=== PATIENT | male | born 1975 | race African-American/Black ===

== ENCOUNTER 2016-06-24 13:11 | Inpatient (IN) | payer MEDICAID ==
[~2016-06-24] VITALS: Ht 185.4 cm; Wt 103.4 kg
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
--- NOTE | 2016-06-24 13:30 | NUR ---
BLOOD SAMPLE COLLECTED SENT TO LAB
--- NOTE | 2016-06-24 13:37 | NUR ---
XRAY AT BEDSIDE
[2016-06-24 13:54] LABS: BASOPHILS % (AUTO) 0.5 % (0.0-2.0); EOSINOPHILS # (AUTO) 0.1 /CMM (0.0-0.7); EOSINOPHILS % (AUTO) 2.1 % (0.0-6.0); HEMATOCRIT 37 % (39-51); HEMOGLOBIN 12.4 g/dL (13.5-17.5); LYMPHOCYTES % (AUTO) 16.1 % (20.0-44.0); MEAN CORPUSCULAR HEMOGLOBIN 28 PG (26.0-33.0); MEAN CORPUSCULAR HGB CONC 34 g/dl (31.0-36.0); MEAN CORPUSCULAR VOLUME 83 fL (80-96); MONOCYTES # (AUTO) 0.5 /CMM (0.1-1.30); MONOCYTES % (AUTO) 8.4 % (2.0-12.0); NEUTROPHILS # (AUTO) 4.5 /CMM (1.8-8.9); NEUTROPHILS % (AUTO) 72.9 % (43.0-81.0); PLATELET COUNT (AUTO) 305 /CMM (150-450); RDW COEFFICIENT OF VARIATION 16.5 (11.5-15.0); WHITE BLOOD COUNT (AUTO) 6.1 K/uL (4.3-11.0)
[2016-06-24 14:05] LABS: CALCIUM, SERUM 8.8 mg/dL (8.5-10.1); CARBON DIOXIDE 30 mmol/L (21-32); CHLORIDE 103 mmol/L (98-107); CREATININE 0.9 mg/dL (0.6-1.3); GFR 114 mL/min (>60); GLUCOSE 107 mg/dL (74-106); POTASSIUM 3.6 mmol/L (3.5-5.1); SODIUM SERUM 137 mmol/L (136-145); UREA NITROGEN, BLOOD 8 mg/dL (7-18)
[2016-06-24 14:10] LABS: INR 1.06 (0.87-1.13)
[2016-06-24 14:12] LABS: TROPONIN I < 0.017 ng/mL (0.00-0.056)
[2016-06-24 14:17] LABS: ALANINE AMINOTRANSFERASE 16 U/L (12-78); ALBUMIN 3.3 g/dL (3.4-5.0); ALKALINE PHOSPHATASE 142 U/L (46-116); ASPARTATE AMINOTRANSFERASE 16 U/L (15-37); B-TYPE NATRIURETIC PEPTIDE 602 PG/ML (0-125); BILIRUBIN,DIRECT 0.1 mg/dL (0.0-0.2); BILIRUBIN,TOTAL 0.5 mg/dL (0.2-1.0); TOTAL PROTEIN, SERUM 7.3 g/dL (6.4-8.2)
--- NOTE | 2016-06-24 16:55 | NUR ---
GAVE REPORT TO CLIFF ROMEOPIG MACHINE OPERATOR. CHF DX. DANNY GALLEGO ACCEPTING HOSPITALIST. TRANSFER VIA ACLS PROTOCOL
[2016-06-24] MEDS ORDERED: MAGNESIUM HYDROXIDE 30 ML UDC PO PRN (18:00)
[2016-06-24] MEDS ORDERED: ONDANSETRON HCL/PF 4 MG/2 ML VIAL IVP PRN (18:00)
[2016-06-24] MEDS ORDERED: ACETAMINOPHEN 325 MG TABLET PO PRN (18:00)
[2016-06-24] MEDS ORDERED: MAG HYDROX/AL HYDROX/SIMETH 30 ML UDC PO PRN (18:00)
[2016-06-24] MEDS ORDERED: HYDROCODONE/APAP 10/325MG 1 EA TABLET PO PRN (18:00)
[2016-06-24] MEDS ORDERED: Z GUARD REMEDY 2 OZ OINT TP PRN (18:00)
[2016-06-24] MEDS ORDERED: ZOLPIDEM TARTRATE 5 MG TABLET PO PRN (18:00)
--- NOTE | 2016-06-24 18:00 | NUR ---
MECHANICAL ENGINEERING TEACHERBOBCAT DRIVER/LABOR NOTE PATIENT IS ALERT AND ORIENTED x4. NO PAIN AT THIS TIME. NO SOB OR DISTRESS NOTED. CALL LIGHT WITHIN REACH. SAFETY MEASURES IMPLEMENTED. PATIENT HAS BILATERAL LOWER LEG EDEMA, NON-PITTING. IV INTACT AND PATENT NO REDNESS OR SWELLING NOTED. RECEIVED REPORT FROM OUSMANE VILLAFANA. ALL PATIENT BELONGINGS ACCOUNTED FOR. PATIENT IS ON REGULAR DIET, FULL CODE. TELE MONITOR-SINUS RHYTHM 80. WILL CONTINUE TO MONITOR
[2016-06-24] MEDS ORDERED: FUROSEMIDE 40 MG/4 ML VIAL IV ONE (18:30)
[2016-06-24] MEDS ORDERED: hydrALAZINE HCL 10 MG TABLET PO PRN (18:30)
--- NOTE | 2016-06-24 19:30 | NUR ---
COKE OVEN PATCHER OPENING NOTES: PATIENT IN BED, AOX4, ON ROOM ON ROOM AIR, BREATHING EVEN AND UNLABORED. BREATH SOUNDS CLEAR TO AUSCULTATION. PATIENT HAS A PIV ACCESS OVER LAC G 18 INTACT AND PATENT TO FLUSH. NOTED BLE SWELLING, WITH +1 NON PITTING EEDEMA. ON TELE MONITORING WITH SR AT RATE OF 70S. PROVIDED FOR COMFORT AND SAFETY. FOR STRICT I&OS. WILL CONT TO MONITOR.
[2016-06-24 20:00] VITALS: BP 166/93
[2016-06-24 22:00] VITALS: BP 163/86
--- NOTE | 2016-06-24 22:29 | NUR ---
RN NOTES: PATIENT'S BP RECHECKED AT 163/86, HR OF 73. GAVE APRESOLINE 10 MG PO PRN. WILL CONT TO MONITOR.
[2016-06-25] VITALS: BP 130/93
[2016-06-25 04:00] VITALS: BP 155/103
[2016-06-25] MEDS: HYDROCODONE/APAP 5/325MG 1 EACH TABLET PO PRN ×3 (06:09→20:19)
--- NOTE | 2016-06-25 06:09 | NUR ---
RN NOTES: PT C/O OF 7/10 PAIN OVER L KNEE AND BLE. ADMINISTERED NORCO 5-325 MG PO. WILL CONT TO MONITOR.
[2016-06-25 06:18] LABS: BASOPHILS % (AUTO) 0.2 % (0.0-2.0); EOSINOPHILS # (AUTO) 0.1 /CMM (0.0-0.7); EOSINOPHILS % (AUTO) 1.5 % (0.0-6.0); HEMATOCRIT 41 % (39-51); HEMOGLOBIN 13.2 g/dL (13.5-17.5); LYMPHOCYTES # (AUTO) 0.9 /CMM (0.8-4.8); LYMPHOCYTES % (AUTO) 10.6 % (20.0-44.0); MEAN CORPUSCULAR HEMOGLOBIN 27 PG (26.0-33.0); MEAN CORPUSCULAR HGB CONC 33 g/dl (31.0-36.0); MEAN CORPUSCULAR VOLUME 84 fL (80-96); MONOCYTES # (AUTO) 0.8 /CMM (0.1-1.30); MONOCYTES % (AUTO) 9.2 % (2.0-12.0); NEUTROPHILS % (AUTO) 78.5 % (43.0-81.0); PLATELET COUNT (AUTO) 329 /CMM (150-450); RDW COEFFICIENT OF VARIATION 17.7 (11.5-15.0); RED BLOOD CELL COUNT(AUTO) 4.87 MIL/uL (4.5-6.0); WHITE BLOOD COUNT (AUTO) 8.9 K/uL (4.3-11.0)
[2016-06-25 06:21] LABS: APPEARANCE,URINE CLEAR (CLEAR); BILIRUBIN,URINE NEGATIVE (NEGATIVE); BLOOD, URINE NEGATIVE Ery/uL (NEGATIVE); COLOR,URINE YELLOW (YELLOW); KETONES,URINE NEGATIVE (NEGATIVE); LEUKOCYTE ESTERASE ,URINE NEGATIVE (NEGATIVE); NITRITE, URINE NEGATIVE (NEGATIVE); PH,URINE 7.5 (5.0-8.0); PROTEIN,URINE NEGATIVE (NEGATIVE); UGLUCOSE NEGATIVE (NEGATIVE); UROBILINOGEN,URINE 0.2 EU/dL (0.2)
[2016-06-25 06:35] LABS: CALCIUM, SERUM 8.7 mg/dL (8.5-10.1); CREATININE 0.8 mg/dL (0.6-1.3); MAGNESIUM 1.8 mg/dL (1.8-2.4); PHOSPHORUS 4.3 mg/dL (2.5-4.9); POTASSIUM 3.7 mmol/L (3.5-5.1)
[2016-06-25 06:38] LABS: PHENCYCLIDINE SCREEN,URINE NEGATIVE (NEGATIVE)
[2016-06-25 06:42] LABS: THYROID STIMULATING HORMONE 1.874 uIU/mL (0.358-3.74)
[2016-06-25 06:44] LABS: CANNABINOID, URINE POSITIVE (NEGATIVE)
--- NOTE | 2016-06-25 06:49 | NUR ---
PAINT STRIPING MACHINE OPERATOR CLOSING NOTES: PATIENT IN BED, AOX4, ON ROOM AIR, BREATHING EVEN AND UNLABORED. APPEARS CALM AND IN NO DISTRESS AT THIS TIME. STATES THAT PAIN OVER BLE AND LEFT KNEE HAS DECREASED TO LESS THAN 5. PIV OVER LAC G 18 INTACT AND PATENT TO FLUSH. DUE MEDS GIVEN. PROVIDED FOR COMFORT AND SAFETY. BED IN LOWEST AND LOCKED POSITION, SIDERAILS UP X 3, CALL LIGHT WITHIN REACH. WILL ENDORSE TO AM RN FOR EFFIE.
--- NOTE | 2016-06-25 07:30 | NUR ---
BOX ATTACHER NOTES RECEIVED PATIENT AWAKE RESTING COMFORTABLY ON BED, BREATHING EVEN AND NON LABORED. DENIES ANY PAIN AT THIS TIME. CALL LIGHT WITHIN REACH. WILL CONTINUE TO MONITOR.
[2016-06-25 08:00] VITALS: BP 155/94
[2016-06-25] MEDS: HYDROCHLOROTHIAZIDE 25 MG TABLET PO SCH (08:55)
--- NOTE | 2016-06-25 09:00 | NUR ---
MITER SAW OPERATOR NOTES DUE MEDS GIVEN, S/B JOSE RAUL EDWARDS WITH NEW ORDERS MADE AND CARRIED OUT.
--- NOTE | 2016-06-25 10:00 | NUR ---
HEALTH INFORMATION TECHNICIAN NOTES S/B DR. HENDERSON WITH ORDERS TO DC TELE MONITORING. ORDERS CARRIED OUT.
[2016-06-25] MEDS: hydrALAZINE HCL 50 MG TABLET PO SCH ×3 (10:32→17:04)
[2016-06-25 16:00] VITALS: BP 142/81
--- NOTE | 2016-06-25 17:00 | NUR ---
MS RN NOTES ALL DUE MEDS GIVEN, NO COMPLAINTS MADE AT THIS TIME.
--- NOTE | 2016-06-25 18:49 | NUR ---
MS RN NOTES ALL NEEDS ATTENDED AND ANTICIPATED, ENDORSED TO INCOMING SHIFT FOR CONTINUITY OF CARE.
[2016-06-25 19:00] VITALS: BP 143/83
[2016-06-25 20:00] VITALS: BP 143/83
--- NOTE | 2016-06-25 20:19 | NUR ---
MS/RN NOTE: C/O PAIN, ACHY RIGHT KNEE, NORCO TAB 5/325 MG TAB 1 PO GIVEN
--- NOTE | 2016-06-25 21:30 | NUR ---
MS/RN NOTE: LAB CALLED FOR POSITIVE MRSA SCREEN RESULT. PATIENT IS ALREADY ON CONTACT ISOLATION FOR MRSA NARES
[2016-06-25] MEDS: MUPIROCIN OINT 2% 22 GM TUBE SCH (22:00)
--- NOTE | 2016-06-26 07:30 | NUR ---
RN MS NOTES PT IN BED, ASLEEP, EASILY AROUSABLE, NO COMPLAINT OF PAIN AT THIS TIME, BREATHING PATTERN NORMAL, CONTACT ISOLATION PRECAUTIONS OBSERVED, CALL LIGHT WITHIN REACH.
[2016-06-26 08:00] VITALS: BP 155/90
[2016-06-26] MEDS: HYDROCHLOROTHIAZIDE 25 MG TABLET PO SCH (08:47)
[2016-06-26] MEDS: ISOSORBIDE DINITRATE (20MG) 20 MG TABLET PO SCH ×2 (08:49→16:58)
[2016-06-26] MEDS: hydrALAZINE HCL 50 MG TABLET PO SCH ×2 (08:49→16:57)
[2016-06-26] MEDS: HYDROCODONE/APAP 5/325MG 1 EACH TABLET PO PRN ×2 (09:56→22:29)
[2016-06-26] MEDS: MUPIROCIN OINT 2% 22 GM TUBE SCH ×2 (09:56→20:38)
--- NOTE | 2016-06-26 13:00 | NUR ---
RN MS NOTES PT IN BED, ASLEEP, EASILY AROUSABLE, ALERT AND ORIENTED, DENIES PAIN AT THIS TIME, RESPIRATIONS NORMAL, SEEN BY DANNY BLUNT, PLAN OF CARE DISCUSSED WITH PT, VERBALIZED UNDERSTANDING, CALL LIGHT WITHIN REACH, NEEDS ATTENDED.
[2016-06-26 16:00] VITALS: BP 128/86
--- NOTE | 2016-06-26 18:07 | NUR ---
RN MS NOTES PT IN BED, ASLEEP, EASILY AROUSABLE, ALERT AND ORIENTED, COMPLIANT WITH MEDICATION AND INTERVENTIONS, CALL LIGHT WITHIN REACH, PM MEDS GIVEN ORDERED, TOLERATING CURRENT DIET WELL, ALL NEEDS ATTENDED.
[2016-06-26 19:00] VITALS: BP 142/95
--- NOTE | 2016-06-26 19:15 | NUR ---
MS RN OPENING NOTES: PT IN BED AWAKE AND EASILY AROUSABLE. PT IS A/0X4 AND MADE KNOWN THAT HE WANTS TO SHOWER. KEPT CLEAN, DRY, AND COMFORTABLE. NO SIGNS OR SYMPTOMS OF DISTRESS NOTED. CALL LIGHT WITHIN PT'S REACH. BED KEPT IN LOCKED, LOWEST POSITION, AND SIDE RAILS X 2 UP. PT IS ON ROOM AIR AND IS TOLERATING WELL. PT IS AMBULATORY WITH ASSIST. PT HAS IV ON LAC #18 G AND IS PATENT AND INTACT. WILL CONTINUE TO MONITOR PT.
[2016-06-26 20:00] VITALS: BP 142/95
--- NOTE | 2016-06-26 22:29 | NUR ---
MS RN NOTES: PT COMPLAINED OF 7/10 BILATERAL LOWER LEGS. PT RECEIVED NORCO 5-325MG PO. WILL CONTINUE TO MONITOR PT.
[2016-06-27 06:29] LABS: BASOPHILS % (AUTO) 0.3 % (0.0-2.0); EOSINOPHILS % (AUTO) 0.5 % (0.0-6.0); HEMATOCRIT 46 % (39-51); HEMOGLOBIN 14.9 g/dL (13.5-17.5); LYMPHOCYTES # (AUTO) 1.1 /CMM (0.8-4.8); LYMPHOCYTES % (AUTO) 12.4 % (20.0-44.0); MEAN CORPUSCULAR HEMOGLOBIN 27 PG (26.0-33.0); MEAN CORPUSCULAR HGB CONC 32 g/dl (31.0-36.0); MEAN CORPUSCULAR VOLUME 83 fL (80-96); MONOCYTES # (AUTO) 1.3 /CMM (0.1-1.30); NEUTROPHILS # (AUTO) 6.5 /CMM (1.8-8.9); NEUTROPHILS % (AUTO) 72.8 % (43.0-81.0); PLATELET COUNT (AUTO) 356 /CMM (150-450); RDW COEFFICIENT OF VARIATION 18.1 (11.5-15.0); RED BLOOD CELL COUNT(AUTO) 5.58 MIL/uL (4.5-6.0)
[2016-06-27 06:45] LABS: CALCIUM, SERUM 9.3 mg/dL (8.5-10.1); CREATININE 0.9 mg/dL (0.6-1.3); POTASSIUM 4.1 mmol/L (3.5-5.1)
--- NOTE | 2016-06-27 07:02 | NUR ---
MS RN CLOSING NOTES: ALL NEEDS WERE ATTENDED. PT IN BED, ASLEEP. PT IS A/OX4. KEPT CLEAN, DRY, AND COMFORTABLE. NO SIGNS OR SYMPTOMS OF DISTRESS NOTED. CALL LIGHT WITHIN PT'S REACH. BED KEPT IN LOCKED, LOWEST POSITION, AND SIDE RAILS X 2 UP. URINAL AT BEDSIDE. OUTPUT WAS 550ML. PT IS ON ROOM AIR AND IS TOLERATING WELL. PT IS AMBULATORY WITH ASSIST. PT HAS IV ON LAC #18 G AND IS PATENT AND INTACT. WILL ENDORSE TO AM NURSE FOR CONTINUITY OF CARE.
--- NOTE | 2016-06-27 07:30 | NUR ---
AM RN NOTE Received patient sleeping comfortably in his bed, arouses upon touch. No SOB noted resp even and non-labored. IV site intact and patent. Bed in low locked position. Will continue to monitor.
[2016-06-27] MEDS: HYDROCHLOROTHIAZIDE 25 MG TABLET PO SCH (08:30)
[2016-06-27] MEDS: ISOSORBIDE DINITRATE (20MG) 20 MG TABLET PO SCH (08:30)
[2016-06-27 08:31] VITALS: BP 133/91
[2016-06-27] MEDS: MUPIROCIN OINT 2% 22 GM TUBE SCH (08:31)
[2016-06-27] MEDS: hydrALAZINE HCL 50 MG TABLET PO SCH (08:31)
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
--- NOTE | 2016-06-27 10:22 | NUR ---
AM RN NOTE New order given by Dr. Pj Quintero for Psych consult per CN (Nette) noted and carried out. Consult faxed to [facility] for Dr. Grider and spoke with Yany.
--- NOTE | 2016-06-27 11:01 | NUR ---
AM RN NOTE Pt pulled out IV attempted to re-insert, pt refused.
[2016-06-27] MEDS ORDERED: TRIAMCINOLONE ACETONIDE SUSP 40 MG/ML VIAL IM ONE (11:30)
[2016-06-27] MEDS ORDERED: LIDOCAINE 1% INJ 50 ML MDV IJ ONE (11:30)
[2016-06-27] MEDS ORDERED: BUPIVACAINE 0.5 % PF 150 MG/30 ML VIAL IJ ONE (11:30)
[2016-06-27] MEDS ORDERED: HYDR-4075 PO (12:09)
[2016-06-27] MEDS ORDERED: ISOS40TA12 PO (12:09)
[2016-06-27] MEDS ORDERED: HYDR12.5 PO (12:09)
--- NOTE | 2016-06-27 13:00 | NUR ---
AM RN NOTE Joint arthrocentesis procedure done by Dr. Ingrid Oliva @bedside.
--- NOTE | 2016-06-27 14:37 | NUR ---
INGRID met with pt. bedside for social service consult and discuss discharge plan. Pt. is A&O x 4. Pt. appeared disheveled and has several tattoos all over his body and arms. Pt. states he has been homeless for the past 5 years, prior to that pt. was living in an apartment by himself. Pt. states he was receiving SSI but does not receive it anymore due to missing his SSI appointments. Pt. has a history of drug use but denies using any drugs at this time. Pt. does smoke Marijuana every other day. Pt. denies alcohol consumption at this time. Pt. denies suicidal/homicidal ideations and visual/auditory hallucinations at this time. Pt. is willing to go to chcf. INGRID contacted [facility] and spoke to Raj who informed INGRID they do have a top bunk bed available or an emergency bed as well. INGRID informed pt. that [facility] has a top bunk available. Pt. accepted to go to chcf. Pt. stated he can take the bus. INGRID informed pt. she will give two bus tokens to his RN Joseluis prior to discharge. Pt. to go to [facility]cf located at [address] [place], [place] [address]A [facility] via bus. Homeless Patient Waiver Form was signed by pt. and placed in chart by INGRID. Addendum: 06/27/16 at 1518 by GRAHAM QUINTERO INGRID gave pt. the following resources: Homeless Resource directory with contacts to food queen, hot showers, clothing, housing and emergency shelters, churches. etc.; 211 brochure and list of outpatient mental health clinics.
--- NOTE | 2016-06-27 14:40 | NUR ---
AM RN NOTE Discharge order given by Dr. Ingrid Oliva. emergency worker (Nya) spoke with patient. Per INGRID (Nya) [facility] Patient A/O X4 verbally responsive. Discharge instructions on medications and teachings given to patient. Belongings endorsed and signed. MD aware about all lab results. Patient seen and assessed by Physical therapist. Patient denies any pain at this time.
--- NOTE | 2016-06-27 14:45 | NUR ---
AM RN NOTE Patient awake, ID band removed. Heplock was pulled out by pt earlier. Skin intact. Patient discharged/ left unit at this time as accompanied by POWER SHEAR OPERATOR to downstairs. 2 bus tokens given to patient per human service worker (Nya).
== END 2016-06-27 14:59 | disposition home or self-care (01) | DRG 199 ==
LOC: ER 13:13 → TELE 16:27 → MED 06-25 09:56
PROVIDERS: ADMIT Contractor; ATTEND Contractor
DX: I16.0 Hypertensive urgency (principal); I50.31 Acute diastolic (congestive) heart failure; E88.09 Other disorders of plasma-protein metabolism, not elsewhere classified; E87.70 Fluid overload, unspecified; M17.12 Unilateral primary osteoarthritis, left knee; F12.90 Cannabis use, unspecified, uncomplicated; F17.210 Nicotine dependence, cigarettes, uncomplicated; Z59.0 Homelessness; D64.9 Anemia, unspecified; I34.0 Nonrheumatic mitral (valve) insufficiency; I35.1 Nonrheumatic aortic (valve) insufficiency; I11.0 Hypertensive heart disease with heart failure
CPT/HCPCS: 36415; 71010-TC; 73564-TC; 80048-TC; 80061-TC; 80076-TC; 80305; 81000-TC; 83735-TC; 83880; 84100-TC; 84443-TC; 84484-TC; 84550-TC; 85025-TC; 85730-TC; 87081-TC; 93307-TC; 93970-TC; 97001-TC; A4606; A6402; J1940; J2405; J3301; J3490; Z7610

== ENCOUNTER 2016-07-07 13:36 | Emergency (ER) | payer MEDICAID ==
[~2016-07-07] VITALS: Ht 188 cm; Wt 90.7 kg
[~2016-07-07 13:36] MED LIST: HYDR-4075 PO; HYDR12.5 PO; ISOS40TA12 PO
--- NOTE | 2016-07-07 14:09 | NUR ---
CALLED GRAHAM, MANAGER FINANCIAL SERVICES, TO COME SEE PT
[2016-07-07 14:28] LABS: CALCIUM, SERUM 8.5 mg/dL (8.5-10.1); CARBON DIOXIDE 30 mmol/L (21-32); CHLORIDE 105 mmol/L (98-107); GFR 101 mL/min (>60); GLUCOSE 103 mg/dL (74-106); POTASSIUM 3.3 mmol/L (3.5-5.1); SODIUM SERUM 138 mmol/L (136-145); UREA NITROGEN, BLOOD 9 mg/dL (7-18)
[2016-07-07 14:36] LABS: TROPONIN I < 0.017 ng/mL (0.00-0.056)
[2016-07-07 14:38] LABS: BASOPHILS # (AUTO) 0.1 /CMM (0.0-0.2); BASOPHILS % (AUTO) 0.5 % (0.0-2.0); EOSINOPHILS # (AUTO) 0.2 /CMM (0.0-0.7); EOSINOPHILS % (AUTO) 1.7 % (0.0-6.0); HEMATOCRIT 35 % (39-51); HEMOGLOBIN 12.1 g/dL (13.5-17.5); LYMPHOCYTES # (AUTO) 1.5 /CMM (0.8-4.8); LYMPHOCYTES % (AUTO) 14.8 % (20.0-44.0); MEAN CORPUSCULAR HEMOGLOBIN 29 PG (26.0-33.0); MEAN CORPUSCULAR HGB CONC 34 g/dl (31.0-36.0); MEAN CORPUSCULAR VOLUME 84 fL (80-96); MONOCYTES # (AUTO) 0.9 /CMM (0.1-1.30); MONOCYTES % (AUTO) 8.7 % (2.0-12.0); NEUTROPHILS # (AUTO) 7.7 /CMM (1.8-8.9); NEUTROPHILS % (AUTO) 74.3 % (43.0-81.0); PLATELET COUNT (AUTO) 332 /CMM (150-450); RDW COEFFICIENT OF VARIATION 15.8 (11.5-15.0); WHITE BLOOD COUNT (AUTO) 10.4 K/uL (4.3-11.0)
[2016-07-07] MEDS ORDERED: FUROSEMIDE 40 MG/4 ML VIAL IV STA (14:39)
[2016-07-07] MEDS ORDERED: FUROSEMIDE 40 MG TABLET PO STA (14:39)
[2016-07-07 14:40] LABS: ALANINE AMINOTRANSFERASE 26 U/L (12-78); ALBUMIN 3.2 g/dL (3.4-5.0); ALKALINE PHOSPHATASE 124 U/L (46-116); ASPARTATE AMINOTRANSFERASE 20 U/L (15-37); B-TYPE NATRIURETIC PEPTIDE 553 PG/ML (0-125); BILIRUBIN,TOTAL 0.6 mg/dL (0.2-1.0); TOTAL PROTEIN, SERUM 7.2 g/dL (6.4-8.2)
--- NOTE | 2016-07-07 14:41 | NUR ---
Social service consult requested by ED RN Silvia for homelessness. INGRID met with pt. bedside. INGRID is familiar with pt. from a previous inpatient admission on June 24. INGRID gave pt. homeless resources directory that includes food queen, emergency intermediate, drop-in centers & shelters, showers/hot meals, health resources-[facility], [facility], [employer] [facility] [place] and homeless resource agencies.
[2016-07-07] MEDS ORDERED: POTASSIUM CHLORIDE 20 MEQ TAB.PRT.SR PO STA (14:48)
[2016-07-07] MEDS ORDERED: FUROSEMIDE 40 MG/4 ML VIAL ONE (14:50)
[2016-07-07] MEDS ORDERED: POTASSIUM CHLORIDE 20 MEQ TAB.PRT.SR PO ONE (14:50)
--- NOTE | 2016-07-07 15:01 | NUR ---
LINE STARTED ON R AC G 24
[2016-07-07 15:06] VITALS: BP 149/99
--- NOTE | 2016-07-07 15:17 | NUR ---
IV removed. Catheter intact and site benign. Pressure and 4x4 applied to site. No bleeding noted.
--- NOTE | 2016-07-07 15:17 | NUR ---
PT. VERBALIZED UNDERSTANDING OF AFTERCARE INSTRUCTIONS.Patient discharged to home in stable condition. Written and verbal after care instructions given. Patient verbalizes understanding of instruction.
[2016-07-07 15:29] LABS: LYMPHOCYTES % (MANUAL) 22 % (16-48); MONOCYTES % (MANUAL) 5 % (0-11.0); NEUTROPHILS % (MANUAL) 73 (42-76)
[2016-07-07 15:30] LABS: PLATELET ESTIMATE ADEQUATE
== END 2016-07-07 15:07 | disposition home or self-care (01) ==
LOC: ER 13:38
DX: I50.9 Heart failure, unspecified (principal); I10 Essential (primary) hypertension; F17.200 Nicotine dependence, unspecified, uncomplicated
CPT/HCPCS: 36415; 71010-TC; 80053-TC; 83880; 84484-TC; 85025-TC; A4606; J1940; Z7610

== ENCOUNTER 2016-07-31 09:49 | Emergency (ER) | payer MEDICAID ==
[~2016-07-31] VITALS: Ht 188 cm; Wt 95.3 kg
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
[2016-07-31] MEDS ORDERED: HYDROCODONE/APAP 5/325MG 1 EACH TABLET PO ONE (10:30)
[2016-07-31] MEDS ORDERED: HYDROCODONE/APAP 5/325MG 1 EACH TABLET ONE (10:31)
[2016-07-31 10:33] LABS: BASOPHILS % (AUTO) 0.7 % (0.0-2.0); EOSINOPHILS # (AUTO) 0.3 /CMM (0.0-0.7); EOSINOPHILS % (AUTO) 4.2 % (0.0-6.0); HEMATOCRIT 33 % (39-51); HEMOGLOBIN 11.1 g/dL (13.5-17.5); LYMPHOCYTES # (AUTO) 1.5 /CMM (0.8-4.8); LYMPHOCYTES % (AUTO) 21.4 % (20.0-44.0); MEAN CORPUSCULAR HEMOGLOBIN 29 PG (26.0-33.0); MEAN CORPUSCULAR HGB CONC 34 g/dl (31.0-36.0); MEAN CORPUSCULAR VOLUME 85 fL (80-96); MONOCYTES # (AUTO) 0.7 /CMM (0.1-1.30); MONOCYTES % (AUTO) 9.4 % (2.0-12.0); NEUTROPHILS # (AUTO) 4.6 /CMM (1.8-8.9); NEUTROPHILS % (AUTO) 64.3 % (43.0-81.0); PLATELET COUNT (AUTO) 251 /CMM (150-450); RDW COEFFICIENT OF VARIATION 15.3 (11.5-15.0); RED BLOOD CELL COUNT(AUTO) 3.84 MIL/uL (4.5-6.0); WHITE BLOOD COUNT (AUTO) 7.1 K/uL (4.3-11.0)
--- NOTE | 2016-07-31 10:36 | NUR ---
WELD ENGINEER AT BEDSIDE
[2016-07-31 10:42] LABS: CALCIUM, SERUM 8.3 mg/dL (8.5-10.1); POTASSIUM 3.9 mmol/L (3.5-5.1)
[2016-07-31 10:51] LABS: INR 0.99 (0.87-1.13); PROTHROMBIN TIME 10.6 SECS (9.5-12.7)
[2016-07-31 10:57] LABS: ALBUMIN 3.1 g/dL (3.4-5.0); BILIRUBIN,TOTAL 0.3 mg/dL (0.2-1.0); TOTAL PROTEIN, SERUM 6.7 g/dL (6.4-8.2)
--- NOTE | 2016-07-31 10:59 | NUR ---
URINE SAMPLE COLLECTED SENT TO LAB
[2016-07-31 11:02] LABS: APPEARANCE,URINE Clear (CLEAR); BILIRUBIN,URINE Negative (NEGATIVE); BLOOD, URINE Negative Ery/uL (NEGATIVE); COLOR,URINE Yellow (YELLOW); KETONES,URINE Negative (NEGATIVE); LEUKOCYTE ESTERASE ,URINE Negative (NEGATIVE); NITRITE, URINE Negative (NEGATIVE); PROTEIN,URINE Negative (NEGATIVE); UGLUCOSE Negative (NEGATIVE); UROBILINOGEN,URINE 0.2 EU/dL (0.2)
[2016-07-31] MEDS ORDERED: FUROSEMIDE 40 MG TABLET ONE (11:29)
--- NOTE | 2016-07-31 11:35 | NUR ---
VERBAL ORDER FROM DR POSADA TO GIVE FUROSEMIDE 40 MG PO ONCE
--- NOTE | 2016-07-31 11:44 | NUR ---
Patient discharged to home in stable condition. Written and verbal after care instructions given. Patient verbalizes understanding of instruction.
[2016-07-31 11:45] VITALS: BP 140/78
[2016-07-31] MEDS ORDERED: FUROSEMIDE 40 MG TABLET PO ONE (12:00)
== END 2016-07-31 11:45 | disposition home or self-care (01) ==
LOC: ER 09:51
DX: R60.0 Localized edema (principal); D64.9 Anemia, unspecified; M25.562 Pain in left knee; I10 Essential (primary) hypertension
CPT/HCPCS: 36415; 73564; 80053; 81001; 83880; 85025; 85610; 93970; 99285; A4606; Z7610; 81000-TC

== ENCOUNTER 2016-08-11 00:56 | Inpatient (IN) | payer MEDICAID ==
[~2016-08-11] VITALS: Ht 188 cm; Wt 93.9 kg
--- NOTE | 2016-08-11 01:20 | NUR ---
TO BED 3 AMBULATORY C/O NONRADIATING L SIDED CP X2 DAYS, BILATERAL KNEE PAIN, BLE SWELLING SINCE JANUARY. PT AAOX4 NO ACUTE DISTRESS NOTED, RESP EVEN AND UNLABORED. SKIN WARM NONDIAPHORETIC. PLACE PT ON CARDIAC MONITORING, CONTINUOUS POX. PENDING ER MD ZHANG.
--- NOTE | 2016-08-11 01:22 | NUR ---
ASHISH DEY AT BEDSIDE TO VICENTE FALK.
--- NOTE | 2016-08-11 01:45 | NUR ---
STARTED SL 18G TO LAC, BLOOD DRAWN AND SENT TO LAB.
[2016-08-11] MEDS ORDERED: ASPIRIN 325 MG TABLET ONE (01:55)
[2016-08-11] MEDS ORDERED: NITROGLYCERIN 0.4 MG/TAB BOTTLE ONE (01:56)
[2016-08-11] MEDS ORDERED: NITROGLYCERIN 0.4 MG/TAB BOTTLE SL ONE (02:00)
[2016-08-11] MEDS ORDERED: ASPIRIN 325 MG TABLET PO ONE (02:00)
[2016-08-11 02:25] LABS: BASOPHILS % (AUTO) 0.4 % (0.0-2.0); EOSINOPHILS # (AUTO) 0.3 /CMM (0.0-0.7); EOSINOPHILS % (AUTO) 3.3 % (0.0-6.0); HEMATOCRIT 35 % (39-51); HEMOGLOBIN 11.8 g/dL (13.5-17.5); LYMPHOCYTES # (AUTO) 2.4 /CMM (0.8-4.8); LYMPHOCYTES % (AUTO) 29.5 % (20.0-44.0); MEAN CORPUSCULAR HEMOGLOBIN 29 PG (26.0-33.0); MEAN CORPUSCULAR HGB CONC 33 g/dl (31.0-36.0); MEAN CORPUSCULAR VOLUME 87 fL (80-96); MONOCYTES # (AUTO) 0.8 /CMM (0.1-1.30); MONOCYTES % (AUTO) 9.3 % (2.0-12.0); NEUTROPHILS # (AUTO) 4.7 /CMM (1.8-8.9); NEUTROPHILS % (AUTO) 57.5 % (43.0-81.0); PLATELET COUNT (AUTO) 294 /CMM (150-450); RDW COEFFICIENT OF VARIATION 16.5 (11.5-15.0); RED BLOOD CELL COUNT(AUTO) 4.09 MIL/uL (4.5-6.0); WHITE BLOOD COUNT (AUTO) 8.2 K/uL (4.3-11.0)
[2016-08-11 02:36] LABS: CALCIUM, SERUM 8.7 mg/dL (8.5-10.1); CARBON DIOXIDE 29 mmol/L (21-32); CHLORIDE 106 mmol/L (98-107); CREATININE 1.1 mg/dL (0.6-1.3); GLUCOSE 88 mg/dL (74-106); POTASSIUM 3.8 mmol/L (3.5-5.1); SODIUM SERUM 143 mmol/L (136-145); UREA NITROGEN, BLOOD 13 mg/dL (7-18)
[2016-08-11 02:40] LABS: D-DIMER 0.52 mg/L(FEU (0.17-0.50); INR 0.99 (0.87-1.13); PROTHROMBIN TIME 10.6 SECS (9.5-12.7)
[2016-08-11 02:43] LABS: TROPONIN I < 0.017 ng/mL (0.00-0.056)
--- NOTE | 2016-08-11 02:43 | NUR ---
Katiuska fay in ED - 08/11/16 at 0244 by MARTHA PT BACK FROM RADIOLOGY. PENDING CT CERVICAL RESULT.
--- NOTE | 2016-08-11 02:44 | NUR ---
PT ASLEEP, NO ACUTE DISTRESS NOTED, RESP EVEN AND UNLABORED. CALL LIGHT WIHTIN REACH. WILL CONTINUE TO MONITOR PT CLOSELY.
[2016-08-11] MEDS ORDERED: IV NS 0.9% 250 ML IV ONE (02:48)
[2016-08-11] MEDS ORDERED: CT SWABBABLE VALVE TRANS SET 1 EA INFUS.SET MC ONE (02:48)
[2016-08-11] MEDS ORDERED: IOHEXOL-350 100 ML VIAL IV ONE (02:48)
[2016-08-11 02:50] LABS: B-TYPE NATRIURETIC PEPTIDE 345 PG/ML (0-125)
--- NOTE | 2016-08-11 03:22 | NUR ---
ER MD SPOKE TO DR. MARTINEZ REGARDING PT ADMISSION. REPORT CALLED TO PHLEBOTOMIST SUPERVISOR/INSTRUCTOROUSMANE LEIVA. PENDING HOSPITAL ADMISSION.
[2016-08-11] MEDS ORDERED: ZOLPIDEM TARTRATE 5 MG TABLET PO PRN (04:00)
[2016-08-11] MEDS ORDERED: ACETAMINOPHEN 325 MG TABLET PO PRN (04:00)
[2016-08-11] MEDS ORDERED: Z GUARD REMEDY 2 OZ OINT TP PRN (04:00)
[2016-08-11] MEDS ORDERED: MAG HYDROX/AL HYDROX/SIMETH 30 ML UDC PO PRN (04:00)
[2016-08-11] MEDS ORDERED: ONDANSETRON HCL/PF 4 MG/2 ML VIAL IVP PRN (04:00)
[2016-08-11] MEDS ORDERED: ENOXAPARIN SODIUM 40 MG/0.4 ML DISP.SYRIN SQ SCH (04:00)
[2016-08-11] MEDS ORDERED: MAGNESIUM HYDROXIDE 30 ML UDC PO PRN (04:00)
[2016-08-11] MEDS ORDERED: ENOXAPARIN SODIUM 40 MG/0.4 ML DISP.SYRIN SQ ONE (04:38)
[2016-08-11] MEDS ORDERED: NITROGLYCERIN PACKET 1 GM PACKET ONE (04:39)
--- NOTE | 2016-08-11 04:55 | NUR ---
TELE WOOD MODEL BUILDER INITIAL NOTES ADMIT PT FROM ER VIA PRECIOUS ACCOMPANIED BY ER NURSE AND TECH. DX CHEST PAIN . PT AWARE WHERE HE AT AND HOW TO USED THE CALL LIGHT SYSTEM. DENIES ANY PAIN OR ANY DISCOMFORT AT THIS TIME. HE ONLY ASKED SOMETHING TO DRINK . EDEMA NOTED ON BILATERAL LOWER EXTREMITIES. TELE SR PER MONITOR. VITAL SIGNS FF. BP 147/76, PULSE 82, RESP. 18, TEMP 98.1 AND O2 SAT 99 %. ON ISOLATION NOW BECAUSE OF HX OF MRSA NARES LAST 06/23/16 . KEPT HIM WARM AND COMFORTABLE AT ALL TIMES. PLACE CALL LIGHT AT REACH.
[2016-08-11 05:00] VITALS: BP 147/76
[2016-08-11] MEDS ORDERED: NITROGLYCERIN PACKET 1 GM PACKET TOP SCH (05:00)
[2016-08-11 05:03] VITALS: BP 147/76
[2016-08-11 07:06] VITALS: BP 151/72
--- NOTE | 2016-08-11 07:06 | NUR ---
TELE BOLT THREADER CLOSING NOTES PT RESTING AT THIS TIME. NO SIGNS OF ANY CHEST PAIN NOTED, STABLE SINCE HE CAME UP. TELE SR PER MONITOR. KEPT HIM WARM AND COMFORTABLE AT ALL TIMES. CALLED DIETARY TO HOLD THE TRY FOR BREAKFAST BECAUSE OF POSSIBLE STRESS TEST IF NEEDED AND ORDER BY CAMPUS RECRUITER. ENDORSE TO AM NURSE.
--- NOTE | 2016-08-11 07:55 | NUR ---
MS RN NOTES PATIENT IS IN BED RESTING COMFORTABLY. PATIENT IS A/OX4. NO S/S OF SOB. NO S/S OF ACUTE DISTRESS. PATIENT CURRENTLY DENIES HAVING CHEST PAIN. IV IS PATENT AND INTACT. CALL LIGHT WITHIN REACH. BED IS IN LOWEST LOCKED POSITION. WILL CONTINUE TO MONITOR THROUGHOUT SHIFT.
[2016-08-11] MEDS ORDERED: hydrALAZINE HCL 10 MG TABLET PO SCH (09:00)
[2016-08-11] MEDS: PANTOPRAZOLE 40 MG TABLET.DR PO SCH (09:22)
[2016-08-11] MEDS: HYDROCHLOROTHIAZIDE 25 MG TABLET PO SCH (09:32)
[2016-08-11] MEDS ORDERED: TRIAMCINOLONE ACETONIDE SUSP 40 MG/ML VIAL IM ONE (12:30)
[2016-08-11] MEDS ORDERED: LIDOCAINE HCL/PF 1% 30 ML SDV IJ ONE (12:30)
[2016-08-11] MEDS ORDERED: BUPIVACAINE 0.25% 75 MG/30 ML VIAL IJ ONE (12:30)
[2016-08-11] MEDS: HYDROCODONE/APAP 5/325MG 1 EACH TABLET PO PRN (13:15)
[2016-08-11] MEDS: hydrALAZINE HCL 10 MG TABLET PO SCH ×2 (13:16→17:55)
--- NOTE | 2016-08-11 14:00 | NUR ---
MS RN NOTES KENALOG NOT ADMIN DUE TO MD ORDER. MD SUSPECTS INFECTION IN SINOVIAL FLUID AND STATED THAT HE WILL POOSSIBLY ADMINISTER IT TOMORROW
--- NOTE | 2016-08-11 14:21 | NUR ---
Social service consult for possible homelessness. Pt. was [facility] to [facility] for chest pain. SW met with pt. bedside. SW is familiar with pt. from previous admissions in ED and Med Surg. Pt. is alert and oriented x 4. Pt. was resting in bed with his eyes closed during the assessment, however was cooperative and friendly with SW. Pt. states he currently resides with his aunt Riddhi in an apartment located at [address] [place] [address] apt. in [facility]. However, pt. is unsure if he will go back there once medically cleared for discharge after hospitalization. Pt. has a history of drug use but denies using any drugs at this time. Pt. does smoke Marijuana every other day. Pt. denies alcohol consumption at this time. Pt. denies suicidal/homicidal ideations and visual/auditory hallucinations at this time. SW offered pt. homeless resources and skilled nursing placement which pt. is accepting. SW to provide resources and skilled nursing placement prior to discharge.
[2016-08-11] MEDS: NITROGLYCERIN 30 GM TUBE TP SCH ×2 (15:33→21:43)
[2016-08-11 16:00] VITALS: BP 149/84
--- NOTE | 2016-08-11 19:30 | NUR ---
MS RN NOTES PATIENT A/OX4. NO S/S OF DISTRESS. NO S/S OF SOB.PATIENT DENIES ANY CHEST PAIN. IV PATENT AND INTACT. BED IN LOW LOCKED POSITION. CALL LIGHT WITHIN REACH. ALL PT NEEDS HAVE BEEN MET. WILL ENDORSE TO PM SHIFT.
--- NOTE | 2016-08-11 19:53 | NUR ---
ms/rn opening notes patient in bed, asleep but arousable. no s/s of sob or distress. no pain verbalized and observed. safety measures provided on isolation protocol for mrsa/nares. will monitor for any s/s of chestpain. continue monitoring b/p changes. call lights within reach.
[2016-08-11 20:00] VITALS: BP 144/73
[2016-08-12] MEDS: HYDROCODONE/APAP 5/325MG 1 EACH TABLET PO PRN ×3 (01:09→10:11)
--- NOTE | 2016-08-12 01:10 | NUR ---
ms/rn notes patient reported pain on bilateral knee of 8/10. to administer prn norco 5-325 mg po and check for effectiveness.
[2016-08-12] MEDS: NITROGLYCERIN 30 GM TUBE TP SCH ×2 (04:23→13:56)
--- NOTE | 2016-08-12 06:51 | NUR ---
ms/rn closing notes patient in bed, awake, alert x3. able to verbalize needs. attend to needs at all times. monitorning for pain on bilateral legs.call lights within reach. will endorse to am rn regarding plan of care.
[2016-08-12 07:26] LABS: BASOPHILS % (AUTO) 0.3 % (0.0-2.0); EOSINOPHILS # (AUTO) 0.1 /CMM (0.0-0.7); EOSINOPHILS % (AUTO) 1.7 % (0.0-6.0); HEMATOCRIT 39 % (39-51); LYMPHOCYTES # (AUTO) 1.5 /CMM (0.8-4.8); LYMPHOCYTES % (AUTO) 20.2 % (20.0-44.0); MEAN CORPUSCULAR HEMOGLOBIN 29 PG (26.0-33.0); MEAN CORPUSCULAR HGB CONC 34 g/dl (31.0-36.0); MEAN CORPUSCULAR VOLUME 87 fL (80-96); MONOCYTES # (AUTO) 0.6 /CMM (0.1-1.30); MONOCYTES % (AUTO) 8.1 % (2.0-12.0); NEUTROPHILS # (AUTO) 5.2 /CMM (1.8-8.9); NEUTROPHILS % (AUTO) 69.7 % (43.0-81.0); PLATELET COUNT (AUTO) 294 /CMM (150-450); RDW COEFFICIENT OF VARIATION 16.3 (11.5-15.0); RED BLOOD CELL COUNT(AUTO) 4.49 MIL/uL (4.5-6.0); WHITE BLOOD COUNT (AUTO) 7.4 K/uL (4.3-11.0)
[2016-08-12 07:51] LABS: CALCIUM, SERUM 9.1 mg/dL (8.5-10.1); CREATININE 0.8 mg/dL (0.6-1.3); MAGNESIUM 1.5 mg/dL (1.8-2.4); PHOSPHORUS 4.4 mg/dL (2.5-4.9); POTASSIUM 3.6 mmol/L (3.5-5.1)
--- NOTE | 2016-08-12 07:53 | NUR ---
MS RN NOTES PATIENT IS IN BED RESTING. PATIENT IS A/OX4. NO SOB OR ANY S/S OF DISTRESS NOTED. PATIENT IS CURRENTLY DENYING ANY CHEST PAIN. IV IS PATENT AND INTACT. CALL LIGHT IS WITHIN REACH. BED IS IN LOWEST LOCKED POSITION. WILL CONTINUE TO MONITOR THROUGHOUT SHIFT.
[2016-08-12 08:00] VITALS: BP 153/108
[2016-08-12] MEDS: PANTOPRAZOLE 40 MG TABLET.DR PO SCH (08:25)
[2016-08-12] MEDS: hydrALAZINE HCL 10 MG TABLET PO SCH ×2 (08:26→13:56)
[2016-08-12] MEDS: HYDROCHLOROTHIAZIDE 25 MG TABLET PO SCH (08:26)
[2016-08-12] MEDS ORDERED: ENOXAPARIN SODIUM 40 MG/0.4 ML DISP.SYRIN SQ SCH (09:00)
[2016-08-12] MEDS ORDERED: IV SET PRIMARY PUMP SET 1 EA INFUS.SET MC ONE (13:36)
[2016-08-12] MEDS ORDERED: IV NS 0.9% 250 ML IV ONE (13:36)
[2016-08-12] MEDS ORDERED: SECONDARY IV SET 1 EA INFUS.SET MC ONE (13:37)
[2016-08-12 13:56] VITALS: BP 136/92
[2016-08-12] MEDS: Magnesium 1GM/D5W 100ML PREMIX 100 ML IV SCH ×2 (13:56→15:19)
--- NOTE | 2016-08-12 15:02 | NUR ---
SW received a call from Med Surg ROYCE De La O informing SW that pt. will be discharged home today. SW met with pt. bedside. Pt. informed SW he would like to be discharged to his aunt's house located at [address] [facility] and will require transportation. INGRID gave pt. the following resources: [facility] Independent living , Homeless Resource Directory, [facility] [place], [place] [facility] urgent care [place] at [address] [place] [facility] [address]. [place] [phone]; Mental health referrals that included [facility] and [facility] ; list of homeless resources and list of Homeless Access centers. and 211 brochure. Addendum: 08/12/16 at 1508 by GRAHAM QUINTERO INGRID updated pt's OUSMANE Byers and ROYCE De La O regarding discharge plan.
--- NOTE | 2016-08-12 17:05 | NUR ---
MS RN NOTES PATIENT HAS BEEN DISCHARGED IN STABLE CONDITION. PATIENT DISCHARGED TO AUNT'S HOME. MD AWARE OF ALL ABNORMAL LABS. DISCHARGE PROTOCOL FOLLOWED. DISCHARGE INSTRUCTIONS HAVE BEEN GIVEN TO THE PATIENT. PATIENT WAS INSTRUCTED TO FOLLOW UP WITH PCP AND FOLLOW UP WITH ORTHOPEDIST. PATIENT WAS INSTRUCTED TO CONTINUE ALL HOME MEDICATIONS. EDUCATION MATERIALS HAVE BEEN PROVIDED TO THE PATIENT. ALL NEEDS HAVE BEEN MET. ID BAND REMOVED. IV REMOVED. PATIENT ESCORTED DOWNSTAIRS AND LEFT WITH TAXI.
== END 2016-08-12 17:00 | disposition home or self-care (01) | DRG 351 ==
LOC: ER 01:01 → TELE 02:41 → MED 13:05
PROVIDERS: ADMIT Internal Medicine; ATTEND Internal Medicine
PROC: 0S9D3ZX Drainage of Left Knee Joint, Percutaneous Approach, Diagnostic (ICD-10-PCS; principal; 2016-08-11)
DX: M25.462 Effusion, left knee (principal); I11.0 Hypertensive heart disease with heart failure; I50.32 Chronic diastolic (congestive) heart failure; M25.561 Pain in right knee; M25.562 Pain in left knee; R07.9 Chest pain, unspecified; Z91.19 Patient's noncompliance with other medical treatment and regimen; F17.210 Nicotine dependence, cigarettes, uncomplicated; F19.10 Other psychoactive substance abuse, uncomplicated; Z79.899 Other long term (current) drug therapy
CPT/HCPCS: 36415; 71010-TC; 80048-TC; 80061-TC; 82945-TC; 83615-TC; 83735-TC; 83880; 84100-TC; 84155-TC; 84484-TC; 85025-TC; 85378-TC; 85730-TC; 87070-TC; 87081-TC; 89060-TC; A4606; A6402; J1650; J3301; J3475; J3490; J7050; Q9967; Z7610

== ENCOUNTER 2016-11-08 13:14 | Emergency (ER) | payer MEDICAID ==
[~2016-11-08] VITALS: Ht 188 cm; Wt 95.3 kg
[2016-11-08 13:27] VITALS: BP 129/74
--- NOTE | 2016-11-08 14:12 | NUR ---
pain meds given as ordered
== END 2016-11-08 14:37 | disposition home or self-care (01) ==
LOC: ER 13:15
DX: M25.562 Pain in left knee (principal); G89.29 Other chronic pain; I10 Essential (primary) hypertension; F17.200 Nicotine dependence, unspecified, uncomplicated
CPT/HCPCS: 99283; A4606; Z7610

== ENCOUNTER 2018-11-19 16:36 | Emergency (ER) | payer SELFPAY ==
[~2018-11-19] VITALS: Ht 182.9 cm; Wt 90.7 kg
[2018-11-19 16:36] VITALS: BP 154/89
[2018-11-19] MEDS ORDERED: IBUPROFEN 600 MG TABLET PO ONE ×2 (17:30→17:34)
== END 2018-11-19 18:06 | disposition home or self-care (01) ==
LOC: ER 16:40
DX: M25.562 Pain in left knee (principal); R60.0 Localized edema; K40.90 Unilateral inguinal hernia, without obstruction or gangrene, not specified as recurrent; I10 Essential (primary) hypertension; F17.200 Nicotine dependence, unspecified, uncomplicated; Z79.899 Other long term (current) drug therapy

== ENCOUNTER 2019-01-17 07:27 | Emergency (ER) | payer MEDICAID ==
[~2019-01-17] VITALS: Ht 185.4 cm; Wt 116.6 kg
[2019-01-17 07:35] VITALS: BP 149/86
--- NOTE | 2019-01-17 07:35 | NUR ---
CAME IN FOR "BLE SWELLING AND PAIN, BLE WOUND x 1WEEK". TO ER BED 11, HOOKED TO MONITOR, AWAITING MD ZHANG. PT ADMITS TO BEING HOMELESS.
--- NOTE | 2019-01-17 07:47 | NUR ---
DR CRUZ AT BEDSIDE
[2019-01-17] MEDS ORDERED: SILVER SULFADIAZINE 50 GM JAR TP STA (07:50)
[2019-01-17] MEDS ORDERED: SILVER SULFADIAZINE CREAM 25 GM TUBE ONE (07:53)
[2019-01-17] MEDS ORDERED: IBUPROFEN 600 MG TABLET PO ONE (07:53)
--- NOTE | 2019-01-17 08:00 | NUR ---
BREAKFAST TRAY PROVIDED. PATIENT TOLERATED FOOD WELL.
[2019-01-17] MEDS: IBUPROFEN 600 MG TABLET PO ONE (08:11)
--- NOTE | 2019-01-17 08:15 | NUR ---
WOUND CARE DONE.
[2019-01-17] MEDS: SILVER SULFADIAZINE CREAM 25 GM TUBE TP ONE (08:21)
--- NOTE | 2019-01-17 08:39 | NUR ---
Patient given written and verbal discharge instructions. Patient verbalizes understanding of instructions. Patient is ambulatory with steady gait. Refuses offer of long term placement. Patient given list of available shelters in surrounding area. Patient signed homeless waiver. Patient discharged in proper clothing. Name band removed.
== END 2019-01-17 08:54 | disposition home or self-care (01) ==
LOC: ER 07:27
DX: S81.802A Unspecified open wound, left lower leg, initial encounter (principal); S81.801A Unspecified open wound, right lower leg, initial encounter; I89.0 Lymphedema, not elsewhere classified; I11.0 Hypertensive heart disease with heart failure; I50.9 Heart failure, unspecified; F19.10 Other psychoactive substance abuse, uncomplicated; R41.82 Altered mental status, unspecified; F10.10 Alcohol abuse, uncomplicated; F17.200 Nicotine dependence, unspecified, uncomplicated; Y90.9 Presence of alcohol in blood, level not specified; Z79.899 Other long term (current) drug therapy; X58.XXXA Exposure to other specified factors, initial encounter; Y93.89 Activity, other specified; Y92.89 Other specified places as the place of occurrence of the external cause; Y99.8 Other external cause status

== ENCOUNTER 2019-01-27 18:32 | Emergency (ER) | payer MEDICAID ==
[~2019-01-27] VITALS: Ht 185.4 cm; Wt 99.8 kg
--- NOTE | 2019-01-27 18:40 | NUR ---
[address] C/O BILATERAL LEG ABSCESS, SWELLING AND PAIN. HOMELESS. TO ER BED 13, HOOKED TO MONITOR, AWAITING MD ZHANG.
--- NOTE | 2019-01-27 18:45 | NUR ---
DR PUENTES AT BEDSIDE
[2019-01-27] MEDS ORDERED: FUROSEMIDE 40 MG TABLET ONE (18:54)
[2019-01-27] MEDS ORDERED: HYDROCODONE/APAP 10/325MG 1 EA TABLET ONE (18:54)
[2019-01-27] MEDS ORDERED: CEPHALEXIN MONOHYDRATE 500 MG CAPSULE PO ONE ×2 (18:54→19:00)
[2019-01-27] MEDS ORDERED: FUROSEMIDE 40 MG TABLET PO ONE (19:00)
[2019-01-27] MEDS ORDERED: HYDROCODONE/APAP 10/325MG 1 EA TABLET PO ONE (19:00)
--- NOTE | 2019-01-27 19:30 | NUR ---
report given to regis quiroz for roz
--- NOTE | 2019-01-27 21:41 | NUR ---
DOOG SKIN CARE ON BLE PROVIDED. Patient given written and verbal discharge instructions and Rx. Patient verbalizes understanding of instructions. Patient given list of available shelters in surrounding area. pt is having proper warm clothing on
--- NOTE | 2019-01-28 08:37 | NUR ---
log raft worker called for consultation
--- NOTE | 2019-01-28 10:00 | NUR ---
Pt provided with homeless chcf resources and transport arranged via taxi to night [facility]. PT. VERBALIZED UNDERSTANDING OF AFTERCARE INSTRUCTIONS TO FILL PRESCRIPTION AND ADHERANCE TO MEDICATION REGIMINE.Patient discharged in stable condition. Written and verbal after care instructions given. Patient verbalizes understanding of instruction.
--- NOTE | 2019-01-28 12:36 | NUR ---
Social Work Consult requested for pt. by Dr. Ceballos for possible homelessness. Per EMR the patient is a 43-year-old Male with a history of hypertension, congestive heart failure, and lymphedema, brought in by ambulance from the street for evaluation of bilateral lower extremity swelling for 2 weeks. Upon social work consultation, the pt. presented lying in bed, sleeping but was easily rousable. The pt. was receptive to meeting with addiction social worker. The pt. appears disheveled, and had their eyes closed throughout most of the interview. The pt. is alert and oriented x 3. The pt. denies SI, HI and denies hallucinations at this time. Per pt. he has been experiencing homelessness for the past 6 years. Per pt., his point of contact is his aunt, Riddhi Vasquez who is his only family in [place] and whom he communicates with often. Per pt. he has no history of alcohol or drug use. Per pt., he suffers from paranoia at times and could not recall mental health diagnosis. Per pt., has seen a psychiatrist in the past who has prescribed Abilify. Per pt. this medication works well for his symptoms. airport utility worker discussed patient clearance with Dr. Reynoso. Per Dr. Reynoso and EMR, Dr. Ceballos cleared pt. for outpatient treatment. Per EMR, pt. was given, follow up treatment instructions and pt. was agreeable to plan. Pt. is agreeable to discharge to [address] SW explained [facility] procedure and pt. expressed understanding. Pt. signed homeless waiver, and was provided with taxi voucher to be dropped off at [facility] at [address] [facility] [phone] by 4:30pm. Pt. was given clothing and expressed appreciation. airport utility worker provided pt. with resources including: [facility] [address] [facility] [phone]; [facility] [address] [place] [address] [facility] located at [address] [facility] [address] [place], [address] [place] [place] ; [facility] [place], [address] [place] [place] ; [facility] Homeless Resource Directory which includes food stamps, transitional housing, showers and hot meals etc; Mental Health clinics such as [facility] ; [facility] ; Health clinics; [facility] and Alcohol treatment centers such as [facility], ; [facility] Substance Abuse Hotline and [facility] . Patient was agreeable to the discharge plan.
[2019-01-28 18:53] VITALS: BP 148/92
== END 2019-01-28 18:54 | disposition home or self-care (01) ==
LOC: ER 18:38
DX: R60.0 Localized edema (principal); I11.0 Hypertensive heart disease with heart failure; I50.9 Heart failure, unspecified; F17.200 Nicotine dependence, unspecified, uncomplicated; Z91.19 Patient's noncompliance with other medical treatment and regimen; Z79.899 Other long term (current) drug therapy

== ENCOUNTER 2019-01-29 12:08 | Inpatient (IN) | payer MEDICAID ==
[~2019-01-29] VITALS: Ht 185.4 cm; Wt 108.9 kg
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
--- NOTE | 2019-01-29 12:46 | NUR ---
flu swab sent
[2019-01-29] MEDS ORDERED: IPRATROPIUM NEB FS 0.5 MG/2.5 ML AMPUL.NEB ONE (12:56)
[2019-01-29] MEDS ORDERED: ALBUTEROL FS 2.5 MG/0.5 ML VIAL.NEB ONE (12:56)
[2019-01-29] MEDS ORDERED: IPRATROPIUM NEB FS 0.5 MG/2.5 ML AMPUL.NEB NEB ONE (13:00)
[2019-01-29] MEDS ORDERED: ALBUTEROL FS 2.5 MG/3 ML VIAL.NEB NEB ONE (13:00)
[2019-01-29 13:13] LABS: BASOPHILS % (AUTO) 0.2 % (0.0-2.0); EOSINOPHILS % (AUTO) 0.7 % (0.0-6.0); HEMATOCRIT 45 % (39-51); HEMOGLOBIN 14.6 g/dL (13.5-17.5); LYMPHOCYTES # (AUTO) 0.6 /CMM (0.8-4.8); LYMPHOCYTES % (AUTO) 3.3 % (20.0-44.0); MEAN CORPUSCULAR HGB CONC 33 g/dl (31.0-36.0); MEAN CORPUSCULAR VOLUME 90 fL (80-96); MONOCYTES # (AUTO) 1.4 /CMM (0.1-1.30); MONOCYTES % (AUTO) 8.2 % (2.0-12.0); NEUTROPHILS # (AUTO) 15.1 /CMM (1.8-8.9); NEUTROPHILS % (AUTO) 87.6 % (43.0-81.0); PLATELET COUNT (AUTO) 251 /CMM (150-450); RED BLOOD CELL COUNT(AUTO) 4.99 MIL/uL (4.5-6.0); WHITE BLOOD COUNT (AUTO) 17.2 K/uL (4.3-11.0)
[2019-01-29 13:19] LABS: CREATININE 1.2 mg/dL (0.6-1.3); POTASSIUM 4.2 mmol/L (3.5-5.1)
[2019-01-29] MEDS ORDERED: VANCOMYCIN 1 GM in IV D5W 250 ML IV ONE (13:30)
[2019-01-29] MEDS ORDERED: FUROSEMIDE 40 MG/4 ML VIAL IV ONE (13:30)
--- NOTE | 2019-01-29 13:47 | NUR ---
CALLED FOR TELE BED STABLE MOVE SHEET SUBMITTED TO ADMITTING
--- NOTE | 2019-01-29 13:57 | NUR ---
[facility]
[2019-01-29] MEDS ORDERED: FUROSEMIDE 40 MG/4 ML VIAL ONE (14:01)
--- NOTE | 2019-01-29 15:31 | NUR ---
GOT BED 105
--- NOTE | 2019-01-29 15:42 | NUR ---
RN NOTE RECEIVED PT FROM ER VIA PRECIOUS ACCOMPANIED RN AND TRANSPORT. PT IN SUPINE POSITION ON ROOM AIR WITHOUT SHORTNESS OF BREATH OR RESPIRATORY DISTRESS. PT IS MED SURG. WITH LAC IV 20G WITH VANCOMYCIN RUNNING FORM ER. WITH BLE EDEMA. SKIN INTACT EXCEPT FOR SKIN TEAR ON LEFT LEG SKIN TEAR. ALERT AND ORIENTED X 4. NO COMPLAINTS OF PAIN AT THIS TIME. WILL MONITOR.
--- NOTE | 2019-01-29 15:51 | NUR ---
report given to juan manuel rn for roz pt transported to 1st floor
[2019-01-29 16:00] VITALS: BP 139/80
[2019-01-29] MEDS ORDERED: MAG HYDROX/AL HYDROX/SIMETH 30 ML UDC PO PRN (17:00)
[2019-01-29] MEDS ORDERED: MAGNESIUM HYDROXIDE 30 ML UDC PO PRN (17:00)
[2019-01-29] MEDS ORDERED: ONDANSETRON HCL/PF 4 MG/2 ML VIAL IVP PRN (17:00)
[2019-01-29] MEDS ORDERED: Z GUARD REMEDY 2 OZ OINT TP PRN (17:00)
[2019-01-29] MEDS ORDERED: FEE PK DOSING 1 MIN EA MC ONE (17:02)
[2019-01-29] MEDS: IV NS 0.9% 1,000 ML IV SCH (17:07)
--- NOTE | 2019-01-29 19:00 | NUR ---
RN NOTE PATIENT SLEEPING COMFORTABLEY IN BED WITHOUT SIGNS OF DISTRESS OR DISCOMFORT. PT CURRENTLY WITH IVF RUNNING AT 75ML/HR. ENDORSED TO NEXT SHIFT.
--- NOTE | 2019-01-29 19:30 | NUR ---
MS RN NOTE PATIENT REPORT GIVEN BED SIDE. PATIENT SLEEPING IN BED EASILY AWOKEN. PATIENT BREATHING EVEN AND UNLABORED ON RA. PATIENT DENIES SOB/ WOB. PATIENT DENIES CHEST PAIN. PATIENT A/O X 4. NO S/S OF ACUTE DISTRESS NOTED. POC AND GOALS DISCUSSED WITH PATIENT. PATIENT VERBALIZE UNDERSTANDING. CALL LIGHT WITHIN REACH. RN WILL CONTINUE TO MONITOR FOR CHANGES. SAFETY PRECAUTIONS IN PLACE.
[2019-01-29 20:00] VITALS: BP 136/83
[2019-01-29] MEDS: PIPERACILLIN /TAZOBACTAM 3.375 G in IV D5W 50 ML IV SCH (20:06)
[2019-01-29] MEDS: VANCOMYCIN 1.25 GM in IV D5W 250 ML IV SCH (23:09)
[2019-01-30 02:00] VITALS: BP 131/84
--- NOTE | 2019-01-30 02:22 | NUR ---
ULTRASONIC TESTER NOTE PATIENT REPORT GIVEN TO TERESA ROMEO FOR EFFIE.
[2019-01-30] MEDS: HYDROCODONE/APAP 5/325MG 1 EACH TABLET PO PRN ×2 (02:26→15:52)
[2019-01-30] MEDS: PIPERACILLIN /TAZOBACTAM 3.375 G in IV D5W 50 ML IV SCH ×4 (02:27→19:41)
[2019-01-30 04:00] VITALS: BP 100/67
[2019-01-30] MEDS: IV NS 0.9% 1,000 ML IV SCH ×2 (05:52→19:45)
--- NOTE | 2019-01-30 05:52 | NUR ---
RN MS NOTES IVF BAG NOT CHANGED. CURRENT BAG STILL HAS SOME.
[2019-01-30] MEDS: VANCOMYCIN 1.25 GM in IV D5W 250 ML IV SCH ×2 (06:23→14:00)
--- NOTE | 2019-01-30 06:45 | NUR ---
RN MS CLOSING NO ACUTE CHANGES SINCE EFFIE TRANSFER. PATIENT SLEEPING. EASILY AROUSABLE. BREATHING EVEN AND UNLABORED ON ROOM AIR. NO S/S OF PAIN OR DISCOMFORT. REMAINED AFEBRILE. IVF INFUSING. ALL DUE MEDS GIVEN. ALL OTHER NEEDS ATTENDED TO. SAFETY MEASURES IN PLACE. CALL LIGHT WITHIN REACH. WILL ENDORSE TO ONCOMING NURSE FOR EFFIE.
[2019-01-30 07:12] LABS: BASOPHILS % (AUTO) 0.1 % (0.0-2.0); EOSINOPHILS % (AUTO) 0.1 % (0.0-6.0); HEMATOCRIT 39 % (39-51); HEMOGLOBIN 12.7 g/dL (13.5-17.5); LYMPHOCYTES # (AUTO) 0.6 /CMM (0.8-4.8); LYMPHOCYTES % (AUTO) 4.3 % (20.0-44.0); MEAN CORPUSCULAR HGB CONC 33 g/dl (31.0-36.0); MEAN CORPUSCULAR VOLUME 88 fL (80-96); MONOCYTES # (AUTO) 1.6 /CMM (0.1-1.30); MONOCYTES % (AUTO) 10.7 % (2.0-12.0); NEUTROPHILS # (AUTO) 12.5 /CMM (1.8-8.9); NEUTROPHILS % (AUTO) 84.8 % (43.0-81.0); PLATELET COUNT (AUTO) 272 /CMM (150-450); WHITE BLOOD COUNT (AUTO) 14.7 K/uL (4.3-11.0)
--- NOTE | 2019-01-30 07:36 | NUR ---
MS RN NOTES PATIENT RECEIVED RESTING INSIDE ROOM. SLEEPING, AROUSABLE TROUGH VERBAL AND TACTILE STIMULI. BREATHING EVEN AND UNLABORED. NO ACUTE DISTRESS NOTED AT THIS TIME. IV VANCO INFUSING ORDERED. SAFETY PRECAUTIONS IN PLACE. WILL CONTINUE TO MONITOR. BED LOCKED AND IN LOW POSITION. BILATERAL UPPER SIDE RAILS UP AND LOCKED. CALL LIGHT WITHIN EASY REACH
[2019-01-30 07:40] LABS: CALCIUM, SERUM 7.9 mg/dL (8.5-10.1); CREATININE 1.3 mg/dL (0.6-1.3); MAGNESIUM 1.9 mg/dL (1.8-2.4); PHOSPHORUS 3.4 mg/dL (2.5-4.9); POTASSIUM 3.8 mmol/L (3.5-5.1)
[2019-01-30 08:00] VITALS: BP 118/73
--- NOTE | 2019-01-30 11:27 | NUR ---
WOUND CARE CONSULT: PT PRESENTS WITH EDEMA AND WOUNDS TO BILATERAL LOWER LEGS, PRESENT ON ADMISSION. RECOMMEND DPM CONSULT. DR BROWN NOTIFIED OF CONSULT REQUEST. CURRENT MOHIT SCORE IS 20. PT REFUSED FULL SKIN ASSESSMENT OF BACK AND BUTTOCKS. WILL SEE PRN. DEFER TO PODIATRY FOR WOUND TREATMENT PLAN. MD IN AGREEMENT WITH PLAN OF CARE. Addendum: 01/30/19 at 1130 by AASHISH ETIENNE WNDNU Amended: Links added.
[2019-01-30 12:00] VITALS: BP 119/77
--- NOTE | 2019-01-30 14:20 | NUR ---
Social service consult requested for homelessness. Pt is a 43 year old male who was admitted to [facility] for cellulitis. Pt was resting in his bed and was oriented x 4 (person, place, and situation). Pt states he is ambulatory. Pt states he is homeless and has been homeless for a while. Pt was cooperative but states I am trying to sleep. Pt denies receiving any financial government benefits and states he has no income. Pt denies alcohol, drug, and cigarette use. [facility] offered pt emergency housing referrals, but pt states he does not want to go to a retirement because they kick you out during the day and theyre always telling you what to do. SW informed pt of various retirement options in case pt changes motivation, including the following winter retirement tack picker locations: [facility]; tack picker address: [address] [place] [address], [facility]: [address] [place] [address], and [facility]: [address] [facility] [address]. [facility] also provided pt with the following housing and health services referrals: [facility] [address] [place] [address] [address]; , [facility] [address] [place] [address]; , and [facility] [address] [place] [address]; . The [facility] Homeless Resources Directory and health and mental health clinic referrals were also provided. Pt denies suicidal and homicidal ideation at this time. Pt denies auditory and visual hallucinations at this time. Pt has signed homeless waiver and it has been placed in his medical chart. Pt will require a TAP card upon discharge. No other services needed at this time. SW is available if needed.
--- NOTE | 2019-01-30 14:45 | NUR ---
MS RN NOTES VANCO TROUGH LEVEL 21, DOSE HELD. PHARMACY MADE AWARE. WILL CONTINUE TO MONITOR
[2019-01-30 16:00] VITALS: BP 120/61
[2019-01-30] MEDS: GENTAMICIN 0.1% OINT 15 GM TUBE TP SCH (16:33)
--- NOTE | 2019-01-30 18:23 | NUR ---
MS RN NOTES PATIENT RESTING INSIDE ROOM. AWAKE, A/O X4. NO ACUTE DISTRESS. DENIES ANY PAIN OR DISCOMFORT. NO CHANGES IN LOC NOTED. PATIENT KEPT CLEAN, DRY AND COMFORTABLE. PROVIDED WITH CALM, SAFE, HAZARD-FREE ENVIRONMENT. CALL LIGHT WITHIN EASY REACH
--- NOTE | 2019-01-30 19:10 | NUR ---
CHANGE OF SHIFT REPORT Patient in bed, sleeping arouses easily, A/O x4. BLE edema, elevated on pillows, denies pain. Instruction to use call light for assistance, verbalized understanding. Safety measure maintained.
[2019-01-30 20:34] VITALS: BP 118/73
[2019-01-30] MEDS: VANCOMYCIN 1 GM in IV D5W 250 ML IV SCH (21:19)
[2019-01-31] MEDS: PIPERACILLIN /TAZOBACTAM 3.375 G in IV D5W 50 ML IV SCH ×4 (02:25→20:08)
[2019-01-31 04:52] VITALS: BP 131/84
[2019-01-31] MEDS: VANCOMYCIN 1 GM in IV D5W 250 ML IV SCH ×3 (05:17→21:41)
--- NOTE | 2019-01-31 06:11 | NUR ---
END OF SHIFT REPORT Patient in bed, on RA tolerating well. BLE wound/cellulitis, denies pain, wound care done. IVF infusing, IV antibiotic as scheduled. Afebrile overnight. Hourly round, fall precaution maintained.
[2019-01-31 06:36] LABS: BASOPHILS % (AUTO) 0.1 % (0.0-2.0); EOSINOPHILS % (AUTO) 0.2 % (0.0-6.0); HEMATOCRIT 37 % (39-51); LYMPHOCYTES % (AUTO) 5.5 % (20.0-44.0); MEAN CORPUSCULAR HGB CONC 33 g/dl (31.0-36.0); MEAN CORPUSCULAR VOLUME 88 fL (80-96); MONOCYTES # (AUTO) 1.5 /CMM (0.1-1.30); MONOCYTES % (AUTO) 8.2 % (2.0-12.0); PLATELET COUNT (AUTO) 307 /CMM (150-450); RED BLOOD CELL COUNT(AUTO) 4.14 MIL/uL (4.5-6.0); WHITE BLOOD COUNT (AUTO) 18.6 K/uL (4.3-11.0)
[2019-01-31 06:58] LABS: CALCIUM, SERUM 7.5 mg/dL (8.5-10.1); CREATININE 1.2 mg/dL (0.6-1.3); POTASSIUM 3.9 mmol/L (3.5-5.1)
--- NOTE | 2019-01-31 07:00 | NUR ---
MS RN NOTES PATIENT RECEIVED FROM PM SHIFT . PATIENT IS ASLEEP BUT EASILY WAKEN WITH NAME AND TOUCH. PATIENT HAS BLE EDEMA, PATIENT DRESSINGS INTACT, CLEAN AND DRY. PATIENT IS AMBULATORY . PATIENT HAS L AC 20# , R AC # 20 , INTACT AND FLUSHING NO SIGNS OF INFILTRATION. PATIENT HAS NS 75 ML/HR. PATIENTS SHOWS NO SIGNS OF ACUTE RESPIRATORY FAILURE. NO PAIN. BED LOCKED AND LOWEST POSITION. CALL LIGHT WITH IN REACH.
[2019-01-31 08:00] VITALS: BP 134/85
[2019-01-31] MEDS: IV NS 0.9% 1,000 ML IV SCH ×2 (09:22→22:20)
[2019-01-31] MEDS: GENTAMICIN 0.1% OINT 15 GM TUBE TP SCH (09:22)
[2019-01-31] MEDS: HYDROCODONE/APAP 5/325MG 1 EACH TABLET PO PRN (11:28)
--- NOTE | 2019-01-31 15:00 | NUR ---
MS RN NOTES PATIENT ENDORSED TO CRISSY
--- NOTE | 2019-01-31 15:05 | NUR ---
NURSES NOTE RECEIVED PATIENT FROM OUSMANE MARINELLI FOR CONTINUATION OF CARE. PATIENT ASLEEP AT THIS TIME WITH NO SIGNS OF DISTRESS. PATIENT BED ALARMS TECHNICAL STENOGRAPHER LIGHT WITHIN REACH. WILL CONTINUE TO MONITOR.
--- NOTE | 2019-01-31 17:44 | NUR ---
PRELIMINARY RESULTS OF ECHOCARDIOGRAM SHOWED EF 15% W/ MILD PULM HTN. ATTENDING RN NOTIFIED OF FINDINGS.
--- NOTE | 2019-01-31 18:40 | NUR ---
COMMUNICATION LEFT MESSAGE FOR DR ORTIZ. NOTIFIED BY SOAP BOILER THAT PATIENT EJECTION FRACTION IS 15 PERCENT AT THIS TIME. WILL AWAIT CALL BACK. Addendum: 01/31/19 at 1848 by Alyssa Steward RN RECEIVED ORDER FOR CONSULT TO DR HENDERSON. CARRIED OUT.
--- NOTE | 2019-01-31 19:20 | NUR ---
MS RN NOTES RECEIVED ON BED SLEEPING,AROUSABLE TO VERBAL STIMULI,BREATHING EASY,NO SOB,NOTED SWELLING ON BOTH LOWER EXTREMITY.IVF NS AT 75ML/HR RATE IN PROGRESS ON LEFT AC,SITE PATENT.CALL LIGHT IN REACH,NEEDS ANTICIPATED.
--- NOTE | 2019-01-31 19:26 | NUR ---
END OF SHIFT REPORT REPORT GIVEN TO RN MARSHA. PATIENT ENDORSED IN STABLE CONDITION. ALL QUESTIONS ANSWERED.
[2019-01-31 20:00] VITALS: BP 126/79
--- NOTE | 2019-01-31 22:19 | NUR ---
MS RN NOTES SWEATING,BLOOD SUGAR CHECK 126,NO HX OF DM.SNACKS PROVIDED.WEB INTERFACE DEVELOPER THE ROOM,ELECTRIC FAN PROVIDED.
[2019-02-01] MEDS: ZOLPIDEM TARTRATE 5 MG TABLET PO PRN ×2 (01:54→20:18)
--- NOTE | 2019-02-01 01:54 | NUR ---
MS RN NOTES AWAKE ASKING FOR SLEEPING PILL.MEDICATED WITH AMBIEN 5MG PO ORDERED.REQUESTING RV REPAIR TECHNICIAN CARE,RENDERED.
[2019-02-01] MEDS: PIPERACILLIN /TAZOBACTAM 3.375 G in IV D5W 50 ML IV SCH ×4 (01:55→22:06)
--- NOTE | 2019-02-01 02:13 | NUR ---
MS RN NOTES DRESSING CHANGE DONE ON BOTH LOWER LEGS,SWELLING IMPROVED.CONTINUE ELEVATION BOTH LEGS.
[2019-02-01 04:00] VITALS: BP 134/80
--- NOTE | 2019-02-01 05:00 | NUR ---
MS RN NOTES VANCO TROUGH IS 18,DOSE ADMINISTER
[2019-02-01 05:13] LABS: BASOPHILS # (AUTO) 0.2 /CMM (0.0-0.2); BASOPHILS % (AUTO) 0.9 % (0.0-2.0); EOSINOPHILS % (AUTO) 0.7 % (0.0-6.0); HEMATOCRIT 37 % (39-51); HEMOGLOBIN 11.9 g/dL (13.5-17.5); LYMPHOCYTES % (AUTO) 5.7 % (20.0-44.0); MEAN CORPUSCULAR HGB CONC 32 g/dl (31.0-36.0); MEAN CORPUSCULAR VOLUME 88 fL (80-96); MONOCYTES # (AUTO) 1.6 /CMM (0.1-1.30); MONOCYTES % (AUTO) 9.4 % (2.0-12.0); NEUTROPHILS # (AUTO) 14.2 /CMM (1.8-8.9); NEUTROPHILS % (AUTO) 83.3 % (43.0-81.0); PLATELET COUNT (AUTO) 372 /CMM (150-450); RED BLOOD CELL COUNT(AUTO) 4.14 MIL/uL (4.5-6.0); WHITE BLOOD COUNT (AUTO) 17.1 K/uL (4.3-11.0)
[2019-02-01 05:18] LABS: CALCIUM, SERUM 7.7 mg/dL (8.5-10.1); POTASSIUM 4.2 mmol/L (3.5-5.1)
[2019-02-01] MEDS: VANCOMYCIN 1 GM in IV D5W 250 ML IV SCH ×3 (05:31→23:37)
[2019-02-01] MEDS: IV NS 0.9% 1,000 ML IV SCH (05:42)
--- NOTE | 2019-02-01 06:16 | NUR ---
MS RN NOTES FAIRLY RESTED.DENIES PAIN,IV ABX TOLERATED WELL,SWELLING ON BOTH LEGS IMPROVED.BREAKFAST WILL HELD TILL SEEN BY DR HENDERSON FOR CARDIO CONSULT REGARDING ECHO 0F 15% EF.DENIES CHEST DISCOMFORTS,CALL LIGHT IN REACH,NEEDS ATTENDED.
--- NOTE | 2019-02-01 07:10 | NUR ---
MS RN OPENING NOTES RECEIVED PATIENT IN BED, ASLEEP. AROUSABLE TO VERBAL AND TACTILE STIMULI. HOB ELEVATED. NO SOB. DENIES ANY C/O PAIN NOR DISCOMFORT AT THIS TIME. LEFT AC IV ACCESS INTACT AND PATENT. BED IN LOWEST POSITION, LOCKED. BED SIDERAILS UPX2. CALL LIGHT WITHIN REACH.
[2019-02-01 08:00] VITALS: BP 137/93
[2019-02-01] MEDS: GENTAMICIN 0.1% OINT 15 GM TUBE TP SCH (08:07)
--- NOTE | 2019-02-01 09:52 | NUR ---
MS RN NOTES PATIENT PULLED OUT LT AC IV ACCESS. RE-EDUCATED PATIENT REGARDING IV ACCESS, VERBALIZES UNDERSTANDING. NEW IV ACCESS INSERTED TO RT AC #20 INTACT AND PATENT.
[2019-02-01] MEDS ORDERED: METOPROLOL SUCCINATE 25 MG TAB.SR.24H PO SCH (11:00)
[2019-02-01 12:00] VITALS: BP 146/96
[2019-02-01] MEDS ORDERED: IOHEXOL-350 100 ML VIAL IV ONE (12:13)
[2019-02-01] MEDS ORDERED: IV NS 0.9% 250 ML IV ONE (12:13)
[2019-02-01] MEDS ORDERED: CT SWABBABLE VALVE TRANS SET 1 EA INFUS.SET MC ONE (12:13)
[2019-02-01] MEDS ORDERED: METOPROLOL TARTRATE INJ 5 MG/5 ML AMPUL ONE ×2 (13:07→13:32)
[2019-02-01] MEDS: METOPROLOL TARTRATE INJ 5 MG/5 ML AMPUL IVP PRN ×6 (13:14→13:39)
[2019-02-01] MEDS ORDERED: NITROGLYCERIN 0.4 MG/TAB BOTTLE SL ONE (13:30)
[2019-02-01] MEDS ORDERED: NITROGLYCERIN 0.4 MG/TAB BOTTLE ONE (13:46)
--- NOTE | 2019-02-01 14:00 | NUR ---
EARRING MAKER NOTES PATIENT RETURNED FROM CT ANGIO OF HEART WITH 3D IMAGE. PATIENT DIAPHORETIC CHECKED BS 93MG/DL. DENIES ANY C/O RESPIRATORY DIFFICULTY NOR ANY C/O PAIN NOR DISCOMFORT. PER PATIENT FIRST TIME HAVING IV CONTRAST. B/P 110/78 HR: 89 R: 18 T: 98.2 O2 SAT 98% RA. RESTSING COMFORTABLY IN BED.
--- NOTE | 2019-02-01 15:29 | NUR ---
Social work follow-up: SW met with pt and pt states he will no longer use methamphetamine as he is "trying to get my life back together. Pt states he last used methamphetamine "10 to 12 days ago." Pt agreed to wear life vest at all times other than when bathing.
[2019-02-01 16:00] VITALS: BP 111/70
--- NOTE | 2019-02-01 16:30 | NUR ---
MATTRESS STRIPPER NOTES PATIENT WANTED TO TAKE A SHOWER, SPOKE TO Maria C MENDEZ. PER MD DOES NOT RECOMMEND IT AT THIS TIME DUE TO PATIENT'S MEDICAL CONDITION. BED BATH GIVEN INSTEAD BY CHARGE COORDINATOR.
--- NOTE | 2019-02-01 18:36 | NUR ---
DELIVERER PHARMACY CLOSING NOTES PATIENT RESTING COMFORTABLY IN BED WATCHING TV. HOB ELEVATED. NO SOB. DENIES ANY C/O PAIN NOR DISCOMFORT AT THIS TIME. RIGHT AC G#20 INTACT AND PATENT WITHOUT S/S OF COMPLICATIONS. ON TELE MONITORING REMAINS SR: 78. BED IN LOWEST POSITION, LOCKED. BED ALARM ON. CALL LIGHT WITHIN REACH. IN NO APPARENT DISTRESS.
--- NOTE | 2019-02-01 19:49 | NUR ---
BAKERY WORKER CONVEYOR LINE OPENING NOTE RECEIVED PATIENT IN BED WITH NO SIGH OF DISTRESS. JUST FRUSTRATED. PATIENT IS ON ROOM AIR WITH NO SOB. PATIENT ON THE MONITOR IS SR WITH PVC'S. PATIENT IS BED REST WITH MULTIPLE WOUNDS. COMPLAINING OF PAIN. WILL FOLLOW UP WITH WITH APPROPRIATE INTERVENTION. PATIENT WAS FOUND WITH HIS IV PULLED OUT WILL ADMINISTER A NEW ONE. ALL SAFETY PRECAUTIONS HAVE BEEN APPLIED. WILL CONTINUE TO MONITOR PATIENT.
[2019-02-01 20:00] VITALS: BP 140/92
[2019-02-01] MEDS: HYDROCODONE/APAP 5/325MG 1 EACH TABLET PO PRN (22:07)
--- NOTE | 2019-02-01 23:00 | NUR ---
PRODUCT DEVELOPMENT ENGINEER NOTE PATIENT PULLED OUT IV. NO SIGN OF BLEEDING. PATIENT SAYS HE DOES NOT WANT IT. WILL HAVE TO INSERT NEW IV.
--- NOTE | 2019-02-01 23:52 | NUR ---
STAFF DEVELOPMENT COORDINATOR NOTE PATIENTS PHONE WAS FOUND ON THE FLOOR BY SHEILA BAXTER. CRACK ON SCREEN PRIOR TO ADMISSION.
[2019-02-02] VITALS (7 sets, daily range): BP systolic 130–155; BP diastolic 62–94
[2019-02-02] MEDS: ACETAMINOPHEN 325 MG TABLET PO PRN ×2 (00:23→17:04)
[2019-02-02] MEDS: IV NS 0.9% 1,000 ML IV SCH (00:26)
[2019-02-02] MEDS: PIPERACILLIN /TAZOBACTAM 3.375 G in IV D5W 50 ML IV SCH ×4 (03:00→19:36)
--- NOTE | 2019-02-02 04:52 | NUR ---
DIGITAL SOLUTION ARCHITECT NOTE PATIENT PULLED OUT IV FOR THE 2ND TIME. SAYS HE DOES NOT NEED IT. BUT STILL WANTS TO RECEIVE HIS ANTIBIOTICS. NO SIGN OF BLEEDING ON THE AREA. WILL HAVE TO INSERT NEW IV
[2019-02-02] MEDS: VANCOMYCIN 1 GM in IV D5W 250 ML IV SCH ×3 (06:06→21:00)
[2019-02-02 06:39] LABS: BASOPHILS # (AUTO) 0.1 /CMM (0.0-0.2); BASOPHILS % (AUTO) 0.3 % (0.0-2.0); EOSINOPHILS % (AUTO) 0.6 % (0.0-6.0); HEMATOCRIT 38 % (39-51); HEMOGLOBIN 12.1 g/dL (13.5-17.5); LYMPHOCYTES # (AUTO) 1.7 /CMM (0.8-4.8); LYMPHOCYTES % (AUTO) 10.1 % (20.0-44.0); MEAN CORPUSCULAR HGB CONC 32 g/dl (31.0-36.0); MEAN CORPUSCULAR VOLUME 89 fL (80-96); MONOCYTES # (AUTO) 1.5 /CMM (0.1-1.30); MONOCYTES % (AUTO) 8.6 % (2.0-12.0); NEUTROPHILS # (AUTO) 13.8 /CMM (1.8-8.9); NEUTROPHILS % (AUTO) 80.4 % (43.0-81.0); PLATELET COUNT (AUTO) 433 /CMM (150-450); RED BLOOD CELL COUNT(AUTO) 4.27 MIL/uL (4.5-6.0); WHITE BLOOD COUNT (AUTO) 17.2 K/uL (4.3-11.0)
[2019-02-02 07:18] LABS: CALCIUM, SERUM 8.1 mg/dL (8.5-10.1); POTASSIUM 4.4 mmol/L (3.5-5.1)
--- NOTE | 2019-02-02 07:27 | NUR ---
CRYOGENICS REPAIRER CLOSING NOTE PATIENT IN BED WITH NO SIGNS OF DISTRESS. PATIENT ON ROOM AIR WITH O2 SAT OF 98%.IV INTACT #22G PATENT AND FLUSHING. ALL NEEDS MET. PATIENT HAS NO SIGNS OF DISTRESS. ALL SAFETY PRECAUTIONS MET. ENDORSED PATIENT TO MORNING SHIFT NURSE
[2019-02-02] MEDS: LISINOPRIL (5MG) 5 MG TABLET PO SCH (08:12)
[2019-02-02] MEDS: GENTAMICIN 0.1% OINT 15 GM TUBE TP SCH (08:14)
[2019-02-02] MEDS: CARVEDILOL 3.125 MG TABLET PO SCH ×2 (10:58→21:02)
--- NOTE | 2019-02-02 16:00 | NUR ---
rn note point of care technician from [employer] life vest came and set upt and tought pt about life vest, but per tech no need for wearing it here in the hospital, when pt will be discharged.
[2019-02-02] MEDS: ZOLPIDEM TARTRATE 5 MG TABLET PO PRN (19:37)
[2019-02-02] MEDS: HYDROCODONE/APAP 5/325MG 1 EACH TABLET PO PRN (19:37)
[2019-02-03] MEDS: PIPERACILLIN /TAZOBACTAM 3.375 G in IV D5W 50 ML IV SCH ×4 (02:40→20:20)
[2019-02-03 05:00] VITALS: BP 143/95
[2019-02-03 05:47] LABS: BASOPHILS % (AUTO) 0.4 % (0.0-2.0); EOSINOPHILS % (AUTO) 0.9 % (0.0-6.0); HEMATOCRIT 37 % (39-51); HEMOGLOBIN 11.8 g/dL (13.5-17.5); LYMPHOCYTES # (AUTO) 1.4 /CMM (0.8-4.8); LYMPHOCYTES % (AUTO) 10.3 % (20.0-44.0); MEAN CORPUSCULAR HGB CONC 32 g/dl (31.0-36.0); MEAN CORPUSCULAR VOLUME 89 fL (80-96); MONOCYTES # (AUTO) 1.2 /CMM (0.1-1.30); MONOCYTES % (AUTO) 9.2 % (2.0-12.0); NEUTROPHILS # (AUTO) 10.7 /CMM (1.8-8.9); NEUTROPHILS % (AUTO) 79.2 % (43.0-81.0); PLATELET COUNT (AUTO) 452 /CMM (150-450); RED BLOOD CELL COUNT(AUTO) 4.13 MIL/uL (4.5-6.0); WHITE BLOOD COUNT (AUTO) 13.5 K/uL (4.3-11.0)
[2019-02-03 06:38] LABS: CALCIUM, SERUM 7.8 mg/dL (8.5-10.1); CREATININE 1.1 mg/dL (0.6-1.3); POTASSIUM 4.5 mmol/L (3.5-5.1)
[2019-02-03] MEDS: VANCOMYCIN 1 GM in IV D5W 250 ML IV SCH ×2 (06:42→17:03)
[2019-02-03 08:00] VITALS: BP 159/84
[2019-02-03] MEDS: LISINOPRIL (5MG) 5 MG TABLET PO SCH (08:19)
[2019-02-03] MEDS: CARVEDILOL 3.125 MG TABLET PO SCH ×2 (08:27→20:54)
[2019-02-03] MEDS: GENTAMICIN 0.1% OINT 15 GM TUBE TP SCH (08:28)
--- NOTE | 2019-02-03 09:56 | NUR ---
THE PATIENT'S EF PER REPORT 15%, WHEN FIRST SEEN, REGARDLESS OF EXPLAINATIONS HOW IMPORTANT FOR HIM TO HAVE IT ON, ADVISED BY CARDIOLOGY TEM, AGREED. LIFE VEST APPLIED AT THIS TIME. NO COMPLAINT OF PAIN, ONLY "HUNGER" CONSULTED WITH CARDIOLOGY, DOUBLE PORTIONS ORDER WITH NO SALT
--- NOTE | 2019-02-03 11:50 | NUR ---
COMPLIANT WITH NURSING CARE, WELL WITH PT, WALKED TO THE BATHROOM WITH HIS OWN CANE, SOMEWHAT UNSTEADY. WITH PT, HAS A WALKER, GAIT BETTER. BOTH LES , GROSSLY EDEMATOUS, NON-PITTING. SOME OOZAGE NOTICEABLE, CLEANSED BOTH, WITH NS, AND GENTAMYCIN OINTMENT APPLIED. SO FAR, NO COMPLAINT OF LEGS PAIN. NO NEEDS FOR HEART MONITOR AT THIS TIME, SECONDARY TO LIFE VEST ALREADY APPLIED
[2019-02-03 12:00] VITALS: BP 122/65
--- NOTE | 2019-02-03 13:50 | NUR ---
PER ATTENDING ANGEL GONZALEZ, " NO REGULAR DIET FOR THIS PATIENT, ONLY CARDIAC ONE, PATIENT WAS EXPLAINED, AND DISAGREED WITH THE PLAN PULLED OUT HIS MIDLINE HEP LOCK, ( ON DOUBLE ABX IVPB) TOOK OFF HIS LIFE VEST, REGARDLESS , AND ADMANTLY DECLINE HEART MONITOR, EPIC STENCIL CUTTER MACHINE, AND LEFT MESSAGE
--- NOTE | 2019-02-03 18:04 | NUR ---
HL on RAC #20 in for continuation of abx ivpb. LIFE VEST applied at this time., no further issues.
[2019-02-03 20:00] VITALS: BP 157/96
[2019-02-04] VITALS (7 sets, daily range): BP systolic 123–154; BP diastolic 53–99
[2019-02-04] MEDS: PIPERACILLIN /TAZOBACTAM 3.375 G in IV D5W 50 ML IV SCH ×4 (01:56→20:05)
[2019-02-04] MEDS: VANCOMYCIN 1 GM in IV D5W 250 ML IV SCH ×2 (05:45→17:43)
--- NOTE | 2019-02-04 07:10 | NUR ---
RN INITIAL NOTE PATIENT IN BED, AWAKE AND ALERT, EATING BREAKFAST. NO COMPLAINS OF ANY PAIN NOR SOB AT THIS TIME. ON 2L NC. PER NOC SHIFT RN, PATIENT IS REFUSING TO WEAR HIS LIFE VEST. HAS A LEFT FA #22, SALINE LOCKED. HAS A BEVERLY LOWER EXT +4 EDEMA. BED LOCKED AND IN LOWEST POSITION. CALL LIGHT WITHIN REACH. WILL CONTINUE TO MONITOR
[2019-02-04] MEDS: CARVEDILOL 3.125 MG TABLET PO SCH ×2 (08:23→20:05)
[2019-02-04] MEDS: LISINOPRIL (5MG) 5 MG TABLET PO SCH (08:23)
[2019-02-04] MEDS: GENTAMICIN 0.1% OINT 15 GM TUBE TP SCH (09:27)
[2019-02-04 10:03] LABS: BASOPHILS % (AUTO) 0.1 % (0.0-2.0); EOSINOPHILS % (AUTO) 0.7 % (0.0-6.0); HEMATOCRIT 38 % (39-51); HEMOGLOBIN 12.6 g/dL (13.5-17.5); LYMPHOCYTES % (AUTO) 9.5 % (20.0-44.0); MEAN CORPUSCULAR HGB CONC 33 g/dl (31.0-36.0); MEAN CORPUSCULAR VOLUME 89 fL (80-96); MONOCYTES % (AUTO) 9.9 % (2.0-12.0); NEUTROPHILS # (AUTO) 8.4 /CMM (1.8-8.9); NEUTROPHILS % (AUTO) 79.8 % (43.0-81.0); PLATELET COUNT (AUTO) 479 /CMM (150-450); RED BLOOD CELL COUNT(AUTO) 4.31 MIL/uL (4.5-6.0); WHITE BLOOD COUNT (AUTO) 10.6 K/uL (4.3-11.0)
--- NOTE | 2019-02-04 10:07 | NUR ---
Social work follow-up: Pt is not appropriate for homeless assisted; referred to Case Management for placement.
[2019-02-04 10:21] LABS: CALCIUM, SERUM 8.4 mg/dL (8.5-10.1); CREATININE 1.1 mg/dL (0.6-1.3); POTASSIUM 4.9 mmol/L (3.5-5.1)
[2019-02-04] MEDS: HYDROCODONE/APAP 5/325MG 1 EACH TABLET PO PRN ×2 (11:32→22:37)
--- NOTE | 2019-02-04 11:33 | NUR ---
RN NOTE DR ORTIZ AT BEDSIDE, OK'S TO GIVE PATIENT MORE FOOD BUT NOT SWEETS. PATIENT WAS ASKIG SNICKERS EARLIER FROM THE VENDING MACHINE. BUT MD SAID NO. ALSO, MD REMINDED PATIENT TO WEAR HIS LIFE VEST. PATIENT SAID HE WILL, LATER
--- NOTE | 2019-02-04 11:56 | NUR ---
RN NOTE DR PINEDO AT BEDSIDE. ORDERED TO DO A FINE NEEDLE ASPIRATION OF THE PATIENT'S LEFT FOOT. CONSENT HAS BEEN SIGNED. WOUND CULTURE ORDERED AND COLLECTED BY .
--- NOTE | 2019-02-04 18:44 | NUR ---
RN CLOSING NOTE PATIENT IN BED, AWAKE AND ALERTX4. NO COMPLAINS OF ANY PAIN NOR SOB AT THIS TIME. ON ROOM AIR. ON TELE, SR. STILL REFUSING LIFE VEST. AWARE. HAS A LEFT FA #22, SL. FINE NEEDLE ASPIRATION OF LEFT FOOT DONE TODAY. SNF PLACEMENT PENDING. BED LOCKED AND IN LOWEST POSITION. CALL LIGHT WITHIN REACH. WILL ENDORSE TO NOC SHIFT FOR EFFIE
--- NOTE | 2019-02-04 19:53 | NUR ---
RN NOTE RECEIVED PT IN BED ALERT AND ORIENTED X 4. NO COMPLAINTS OF PAIN OR DISCOMFORT AT THIS TIME. TELE LEADS REMOVED BY PATIENT. REPLACED TELE LEADS. PT ON ROOM AIR WITHOUT SHORTNESS OF BREATH. WITH 4+ PITTING EDEMA. CALL LIGHT WITHIN REACH, BED LOCKED AND IN LOWEST POSITION. WILL MONITOR.
--- NOTE | 2019-02-04 20:14 | NUR ---
RN NOTE LIFE VEST NOTED AT BEDSIDE. EDUCATED PT ON RISKS AND ADVANTAGES OF USING LIFE VEST. PT STATES HE IS AWARE BUT IS CURRENTLY REFUSING TO USE IT AT THIS TIME.
[2019-02-05] VITALS: BP 143/93
--- NOTE | 2019-02-05 00:11 | NUR ---
RN NOTE PT SLEEPING IN BED WITHOUT SIGNS OF DISCOMFORT OR DISTRESS. RESPIRATIONS UNLABORED WHILE ON ROOM AIR. CALL LIGHT WITHIN REACH. BED LOCKED AND IN LOW POSITION. WILL MONITOR.
[2019-02-05] MEDS: PIPERACILLIN /TAZOBACTAM 3.375 G in IV D5W 50 ML IV SCH ×3 (01:01→13:44)
--- NOTE | 2019-02-05 03:25 | NUR ---
RN NOTE TRANSFERRED CARE TO BALBIR ROMEO IN STABLE CONDITION.
--- NOTE | 2019-02-05 03:30 | NUR ---
RAYON CONER NOTE RECEIVED TRANSFER OF CARE FROM ALEJANDRO RN "O" AND REBEL RN. RECIEVED PATIENT IN BED. A/O X4. TOLERATING ROOM AIR. RESPIRATIONS ARE EVEN AND UNLABORED. NO SOB NOTED. NO C/O FRANCISCO AT THIS TIME. IV ACCESS IN LFA #22 PATENT AND SALINE LOCKED. EXTERNAL TELE MONITOR READS SR 75. IN NO APPARENT DISTRESS. PATIENT IS REFUSING TO WEAR LIFE VEST. BED IS LOW AND LOCKED, SIDE RAILS UP X2, HOB ELEVATED IN SEMI FOWLERS, BED ALARM ON. CALL LIGHT WITHIN REACH. WILL CONTINUE TO MONITOR.
[2019-02-05 04:00] VITALS: BP 139/88
--- NOTE | 2019-02-05 04:35 | NUR ---
SORTING GRAPPLE OPERATOR NOTE TRANSFER OF CARE BACK TO ALEJANDRO RN "O" AND REBEL ROMEO. NO CHANGES IN PATIENTS STATUS.
--- NOTE | 2019-02-05 04:45 | NUR ---
RN NOTE PT AWAKE AND ALERT IN BED WITHOUT COMPLAINTS OF DISCOMFORT. ENCOURAGED PT TO WEAR LIFE VEST BUT PT REFUSED DESPITE EXPLANATION OF RISKS AND BENEFITS.
[2019-02-05 05:29] LABS: BASOPHILS # (AUTO) 0.1 /CMM (0.0-0.2); BASOPHILS % (AUTO) 0.9 % (0.0-2.0); EOSINOPHILS % (AUTO) 0.8 % (0.0-6.0); HEMATOCRIT 36 % (39-51); HEMOGLOBIN 11.8 g/dL (13.5-17.5); LYMPHOCYTES # (AUTO) 1.3 /CMM (0.8-4.8); LYMPHOCYTES % (AUTO) 14.5 % (20.0-44.0); MEAN CORPUSCULAR HGB CONC 33 g/dl (31.0-36.0); MEAN CORPUSCULAR VOLUME 89 fL (80-96); MONOCYTES % (AUTO) 10.8 % (2.0-12.0); NEUTROPHILS # (AUTO) 6.6 /CMM (1.8-8.9); PLATELET COUNT (AUTO) 452 /CMM (150-450); RED BLOOD CELL COUNT(AUTO) 4.07 MIL/uL (4.5-6.0); WHITE BLOOD COUNT (AUTO) 9.1 K/uL (4.3-11.0)
[2019-02-05 05:52] LABS: CALCIUM, SERUM 8.3 mg/dL (8.5-10.1); CREATININE 1.1 mg/dL (0.6-1.3); POTASSIUM 5.1 mmol/L (3.5-5.1)
[2019-02-05] MEDS: VANCOMYCIN 1 GM in IV D5W 250 ML IV SCH (06:27)
--- NOTE | 2019-02-05 07:10 | NUR ---
RN NOTE PT IN BED AWAKE AND ALERT WITH HEAD OF BED ELEVATED. NO SIGNS OF ACUTE DISTRESS. ON ROOM AIR. VANCOMYCIN IV CURRENTLY RUNNING WITHOUT COMPLICATIONS. BED LOWERED TO LOWEST POSITION AND LOCKED IN PLACE. ON TELE MONITOR SINUS RHTHYM. LIFE VEST AT BEDSIDE BUT PT REFUSES TO WEAR IT DESPITE EXPLANATION OF RISKS AND BENEFITS. CALL LIGHT WITHIN REACH. ENDORSED TO ONCOMING SHIFT.
--- NOTE | 2019-02-05 07:15 | NUR ---
FORMING ROLL OPERATOR HEAVY DUTY OPENING NOTE RECEIVED REPORT FROM PM NURSE.PATIENT A/O X4. ON ROOM AIR. RESPIRATIONS ARE EVEN AND UNLABORED. NO SOB NOTED. NO C/O FRANCISCO AT THIS TIME. IV ACCESS IN LFA #22 PATENT AND SALINE LOCKED. ON TELE MONITOR SR WITH INVERTED T WAVE ,HR 77. PATIENT IS REFUSING TO WEAR LIFE VEST. EXPLAINED RISK AND BENEFIT.STILL REFUSING.BED IS LOW AND LOCKED, SIDE RAILS UP X3. BED ALARM ON. CALL LIGHT WITHIN REACH. PATIENT REQUESTING FOR BREAKFAST.MADE AWARE WILL BE HERE IN 15 MIN. WILL CONTINUE TO MONITOR.
--- NOTE | 2019-02-05 07:50 | NUR ---
WELFARE AIDE NOTE SEEN BY .UPDATED ABOUT PATIENT CONDITION.PATIENT REQUESTING FOR DOUBLE PORTION.OK TO GIVE IT.MADE AWARE THAT PATIENT REFUSING LIFE WEST.WILL CONTINUE TO MONITOR.
[2019-02-05 08:00] VITALS: BP 128/84
[2019-02-05 09:13] VITALS: BP 128/84
[2019-02-05] MEDS: GENTAMICIN 0.1% OINT 15 GM TUBE TP SCH (09:13)
[2019-02-05] MEDS: LISINOPRIL (5MG) 5 MG TABLET PO SCH (09:13)
[2019-02-05] MEDS: CARVEDILOL 3.125 MG TABLET PO SCH (09:13)
--- NOTE | 2019-02-05 11:31 | NUR ---
WOUND CARE CONSULT WOUND CARE RECEIVED CONSULT FOR STATUS POST LEFT FOOT FINE NEEDLE ASPIRATION. PATIENT HAD PROCEDURE WITH DR CALI WHO IS COUNTY COMMISSIONER THAT IS FOLLOWING THIS PATIENT. WOUND CARE WILL DEFER CONSULT AND TREATMENT PLANS TO PODIATRY TEAM, WOUND CARE WILL SEE PRN.
--- NOTE | 2019-02-05 12:00 | NUR ---
MS/RN NOTES RECEIVED PATIENT FROM OUSMANE GREGORIO. PATIENT ALERT AND ORIENTED X4. NO OR ACUTE DISTRESS AT THIS TIME. RESPIRATION EVEN AND UNLABORED. SKIN IS DRY WARM TO TOUCH. IV ACCESS INTACT AND PATENT. FLUSHING WELL. PATIENT ABLE TO TOLERATE MEALS AND MEDS WELL. ALL NEEDS ANTICIPATED. CALL LIGHT WITHIN REACHED. BED LOCKED AND IN LOWEST POSITION. WILL CONTINUE TO MONITOR CLOSELY.
--- NOTE | 2019-02-05 12:13 | NUR ---
RN NOTE ENDORSED TO DANNY ROMEO FOR EFFIE.PARTIENT IN STABLE CONDITION.SSD MADE AWARE ABOUT PATIENT REQUSET FOR T SHIRT.
--- NOTE | 2019-02-05 14:50 | NUR ---
Per TYREL Charge Nurse's request, SW provided pt. with clothing. pt. presented laying on his bed eating and expressed gratitude.
[2019-02-05] MEDS: HYDROCODONE/APAP 5/325MG 1 EACH TABLET PO PRN (14:59)
--- NOTE | 2019-02-05 15:25 | NUR ---
MS/RN NOTES ACCORDING TO THE PATIENT HE WANTS TO GO AMA. ALL PAPERS FOR AMA WAS SIGNED AND PLACED IN THE CHART. IV ACCESS WAS REMOVED. PATIENT WAS GIVEN CLOTHES FROM THE DONATION BIN. TREATMENTS WAS DONE WELL. PATIENT WAS GIVEN TAP CARD. PATIENT LEFT THE HOSPITAL IN STABLE CONDITION.
--- NOTE | 2019-02-05 15:55 | NUR ---
MS/RN NOTES INCIDENT REPORT WAS SUBMITTED REGARDING THE AMA. UNIQUE ID: [id number].
== END 2019-02-05 15:25 | disposition left against medical advice (07) | DRG 194 ==
LOC: ER 12:09 → TELE1 15:40 → MEDSG1 18:14 → TELE1 02-01 13:03 → MEDSG1 02-05 09:54
PROVIDERS: ADMIT Family Medicine; ATTEND Student in an Organized Health Care Education/Training Program
PROC: 05HB33Z Insertion of Infusion Device into Right Basilic Vein, Percutaneous Approach (ICD-10-PCS; principal; 2019-02-02)
DX: I11.0 Hypertensive heart disease with heart failure (principal); J15.9 Unspecified bacterial pneumonia; L03.115 Cellulitis of right lower limb; E86.1 Hypovolemia; E87.1 Hypo-osmolality and hyponatremia; I42.9 Cardiomyopathy, unspecified; L03.116 Cellulitis of left lower limb; F20.9 Schizophrenia, unspecified; I50.21 Acute systolic (congestive) heart failure; Z59.0 Homelessness; E66.9 Obesity, unspecified; M19.90 Unspecified osteoarthritis, unspecified site; Z79.899 Other long term (current) drug therapy; F12.90 Cannabis use, unspecified, uncomplicated; I89.0 Lymphedema, not elsewhere classified; Z72.0 Tobacco use
CPT/HCPCS: 36415; 36569; 71045-TC; 75574; 80048-TC; 80061-TC; 80202-TC; 80305; 82962-TC; 83735-TC; 84100-TC; 85025-TC; 85610-TC; 85730-TC; 87040-TC; 87070-TC; 87081-TC; 87186-TC; 93307-TC; 97116-TC; 97530-TC; A6253; A6403; G0378; J1940; J2543; J3370; J3490; J7030; J7050; J7060; Q9967

== ENCOUNTER 2019-04-07 14:33 | Inpatient (IN) | payer MEDICAID ==
[~2019-04-07] VITALS: Ht 188 cm; Wt 99.9 kg
--- NOTE | 2019-04-07 14:45 | NUR ---
bilateral leg edema x 2 weeks, PT AWAKE, ALERT, -SOB, NAD NOTED, VSS, PENDING MD ZHANG
[2019-04-07 15:14] LABS: BASOPHILS # (AUTO) 0.1 /CMM (0.0-0.2); BASOPHILS % (AUTO) 1.9 % (0.0-2.0); HEMATOCRIT 34 % (39-51); LYMPHOCYTES # (AUTO) 0.9 /CMM (0.8-4.8); LYMPHOCYTES % (AUTO) 12.2 % (20.0-44.0); MEAN CORPUSCULAR HGB CONC 33 g/dl (31.0-36.0); MEAN CORPUSCULAR VOLUME 85 fL (80-96); MONOCYTES # (AUTO) 0.7 /CMM (0.1-1.30); MONOCYTES % (AUTO) 9.8 % (2.0-12.0); NEUTROPHILS # (AUTO) 5.5 /CMM (1.8-8.9); NEUTROPHILS % (AUTO) 75.1 % (43.0-81.0); PLATELET COUNT (AUTO) 388 /CMM (150-450); RED BLOOD CELL COUNT(AUTO) 3.97 MIL/uL (4.5-6.0); WHITE BLOOD COUNT (AUTO) 7.3 K/uL (4.3-11.0)
[2019-04-07 15:21] LABS: CALCIUM, SERUM 8.4 mg/dL (8.5-10.1); CREATININE 1.2 mg/dL (0.6-1.3); POTASSIUM 3.7 mmol/L (3.5-5.1)
--- NOTE | 2019-04-07 15:48 | NUR ---
CALLED ROXANE, INDIAD TINO LOGISTICS PROJECT MANAGER FOR ADMISSION
[2019-04-07 16:00] VITALS: BP 160/83
[2019-04-07] MEDS ORDERED: FUROSEMIDE 40 MG/4 ML VIAL IV ONE (16:00)
[2019-04-07] MEDS ORDERED: FUROSEMIDE 40 MG/4 ML VIAL ONE (16:06)
--- NOTE | 2019-04-07 16:20 | NUR ---
REPORT GIVEN TO CASSANDRA ROMEO FOR EFFIE, PT WILL BE TRANSPORTED TO 3RD FLOOR VIA ACLS PROTDEL
[2019-04-07] MEDS ORDERED: MORPHINE SULFATE INJ 2 MG/ML DISP.SYRIN IV PRN (16:30)
[2019-04-07] MEDS ORDERED: MAG HYDROX/AL HYDROX/SIMETH 30 ML UDC PO PRN (16:30)
[2019-04-07] MEDS ORDERED: HYDROCODONE/APAP 5/325MG 1 EACH TABLET PO PRN (16:30)
[2019-04-07] MEDS ORDERED: MAGNESIUM HYDROXIDE 30 ML UDC PO PRN (16:30)
[2019-04-07] MEDS ORDERED: ZOLPIDEM TARTRATE 5 MG TABLET PO PRN (16:30)
[2019-04-07] MEDS ORDERED: ONDANSETRON HCL/PF 4 MG/2 ML VIAL IVP PRN (16:30)
--- NOTE | 2019-04-07 16:30 | NUR ---
TELE/ICE CREAM DISPENSER NOTE Report received from Weston ROMEO in ER. Patient arrived to unit on gurney. A/O x3, showing no signs of acute distress, SOB upon exertion, Tele monitor sinus tachycardia in the early 100s, vital signs 160/83, T 98.7, saturating 100% on RA. Skin assessed, photos taken and placed in chart. Wound culture obtained and sent to lab. Dressings applied. IV line in the RAC #20 is clean and intact s/l. Belongings list signed and placed in chart. Bed is in lowest position, side rails x3 in upright position, call light is within reach and patient is aware of how to call for assistance when needed. Safety and fall precautions enforced. Will continue with plan of care.
[2019-04-07] MEDS ORDERED: FEE PK DOSING 1 MIN EA MC ONE (17:29)
[2019-04-07] MEDS: VANCOMYCIN 1.5 GM in IV D5W 500ml IV SCH (18:28)
--- NOTE | 2019-04-07 19:30 | NUR ---
TELE/RN OPENING NOTE BEDSIDE REPORT RECIEVED FROM NITA ROMEO. PATIENT IN BED A/OX3 IN NO APPARENT DISTRESS. DENIES SOB ON RA. MONITOR SHOWS PATIENT IS IN ST IN 110. IV LINE RAC NUMBER 20 INFUSING VANCOMYCIN ORDERED. BED OIN LOW LOCKED POSITION CALL LIGHT IS WITHIN REACH PATIENT AWARE VERBALIZED UNDERSTANDING TO CALL FOR ASSISTANCE IF NEEDED. WILL CONT TO MONITOR.
--- NOTE | 2019-04-07 19:32 | NUR ---
TELE/RN CLOSING NOTE Patient is resting in bed, A/O x3, showing no signs of acute distress, SOB upon exertion, Tele monitor sinus tachycardia in the early 100s, vital signs 160/83, T 98.7, saturating 100% on RA. IV line in the RAC #20 is clean and intact running vanco at the moment, per MD order. Patient urinated about 2000cc in urinal clear and yellow. All patient needs met, all due meds given. Bed is in lowest position, side rails x3 in upright position, call light is within reach and patient is aware of how to call for assistance when needed. Safety and fall precautions enforced. Will endorse to night court magistrate.
[2019-04-07 20:00] VITALS: BP 137/83
[2019-04-07] MEDS: CEFEPIME 1 GM in IV D5W 50 ML IV SCH (21:00)
[2019-04-07] MEDS: CARVEDILOL 6.25 MG TABLET PO SCH (21:04)
[2019-04-07] MEDS: ENOXAPARIN SODIUM 40 MG/0.4 ML DISP.SYRIN SQ SCH (21:07)
[2019-04-08] VITALS (8 sets, daily range): BP systolic 130–140; BP diastolic 80–97
--- NOTE | 2019-04-08 03:15 | NUR ---
DIE CASTING MACHINE MAINTAINER NOTES RECEIVED REPORT FROM OUSMANE LANGSTON. PATIENT ASLEEP IN BED. IN STABLE CONDITION. NO S/S OF SOB AND NO COMPLAINTS OF PAIN AT THIS TIME. TELE MONITOR READING SR, HEART 98. BED LOCKED, ALARM ON, SIDE RAILS X2, CALL LIGHT WITHIN REACH, WILL CONTINUE TO MONITOR.
[2019-04-08] MEDS: VANCOMYCIN 1.5 GM in IV D5W 500ml IV SCH ×2 (06:03→17:43)
[2019-04-08 07:14] LABS: BASOPHILS % (AUTO) 0.7 % (0.0-2.0); EOSINOPHILS % (AUTO) 0.4 % (0.0-6.0); HEMATOCRIT 33 % (39-51); HEMOGLOBIN 10.5 g/dL (13.5-17.5); LYMPHOCYTES # (AUTO) 1.6 /CMM (0.8-4.8); LYMPHOCYTES % (AUTO) 23.4 % (20.0-44.0); MEAN CORPUSCULAR HGB CONC 32 g/dl (31.0-36.0); MEAN CORPUSCULAR VOLUME 85 fL (80-96); MONOCYTES # (AUTO) 0.8 /CMM (0.1-1.30); MONOCYTES % (AUTO) 12.5 % (2.0-12.0); NEUTROPHILS # (AUTO) 4.2 /CMM (1.8-8.9); PLATELET COUNT (AUTO) 370 /CMM (150-450); RED BLOOD CELL COUNT(AUTO) 3.84 MIL/uL (4.5-6.0); WHITE BLOOD COUNT (AUTO) 6.7 K/uL (4.3-11.0)
[2019-04-08 07:25] LABS: BILIRUBIN,DIRECT 0.3 mg/dL (0.0-0.2); BILIRUBIN,TOTAL 1.2 mg/dL (0.2-1.0); CALCIUM, SERUM 8.4 mg/dL (8.5-10.1); CREATININE 1.2 mg/dL (0.6-1.3); MAGNESIUM 1.7 mg/dL (1.8-2.4); PHOSPHORUS 3.6 mg/dL (2.5-4.9); POTASSIUM 4.1 mmol/L (3.5-5.1); TOTAL PROTEIN, SERUM 7.7 g/dL (6.4-8.2)
--- NOTE | 2019-04-08 07:40 | NUR ---
PAINT DEPARTMENT SUPERVISOR CLOSING NOTES PATIENT ASLEEP IN BED, EASY TO AWAKEN. A/OX3. ON ROOM AIR. NO S/S OF ACUTE DISTRESS NOTED. TELE MONITOR READING SR, HEART RATE 96. BED LOCKED, ALARM ON, SIDE RAILS X2, CALL LIGHT WITHIN REACH. WILL ENDORSE TO DAY SHIFT NURSE TO FOLLOW PLAN OF CARE.
--- NOTE | 2019-04-08 08:18 | NUR ---
KNAPSACK SPRAYER OPENING NOTES RECEIVED PATIENT ASLEEP IN BED, EASY TO AWAKEN. A/OX3. ON ROOM AIR. NO S/S OF ACUTE DISTRESS NOTED. TELE MONITOR READING SR, HEART RATE 96. BED LOCKED, ALARM ON, SIDE RAILS X2, CALL LIGHT WITHIN REACH. WILL CONTINUE TO MONITOR.
[2019-04-08] MEDS: NICOTINE PATCH (21MG) 21 MG PATCH.TD24 TD SCH (08:30)
[2019-04-08] MEDS: LISINOPRIL (5MG) 5 MG TABLET PO SCH (08:30)
[2019-04-08] MEDS: CARVEDILOL 6.25 MG TABLET PO SCH ×2 (08:30→21:54)
[2019-04-08] MEDS: FUROSEMIDE 40 MG/4 ML VIAL IV SCH ×2 (08:31→16:46)
[2019-04-08] MEDS: CEFEPIME 1 GM in IV D5W 50 ML IV SCH ×2 (09:50→20:37)
[2019-04-08] MEDS: Magnesium 1GM/D5W 100ML PREMIX 100 ML IV SCH ×2 (10:32→11:50)
--- NOTE | 2019-04-08 11:28 | NUR ---
VISITOR SERVICES REPRESENTATIVE NOTES DIETARY RECOMMENDED A REGULAR DIET FOR THE PATIENT. MD IS AWARE AND ORDER TO STAY IN CARDIAC DIET. DIETARY IS AWARE FOR MD ORDER.
--- NOTE | 2019-04-08 12:33 | NUR ---
WOUND CARE CONSULT: PT PRESENTS WITH WOUNDS TO LOWER EXTREMITIES, PRESENT ON ADMISSION. DPM CONSULT RECOMMENDED. DR BROWN NOTIFIED OF ADMISSION. PT IS CONTINENT. WILL SEE PRN. DEY IN AGREEMENT WITH PLAN OF CARE. Addendum: 04/08/19 at 1234 by AASHISH ETIENNE WNDNU Amended: Links added. Addendum: 04/08/19 at 1238 by AASHISH ETIENNE WNDNU CURRENT MOHIT SCORE IS 17.
--- NOTE | 2019-04-08 18:47 | NUR ---
TELE/RN CLOSING NOTES PATIENT IS LYING ON BED COMFORTABLY. PATEIN ALERT AND ORIENTED X3. NO RESPIRATORY DISTRESS NOTED. PATIENT DENIES PAIN AT THIS TIME. SALINE LOCKED IN PLACED #20G AT RIGHT AC PATENT AND INTACT. SEEN AND EXAMINED BY MD WITH ORDERS MADE AND CARRIED OUT. ALL DUE MEDS WAS GIVEN. KEPT PATIENT CLEAN AND DRY THE WHOLE TIME. CHECKED PATIENT EVERY 2 HOURS. BED IN LOWEST POSITION AND LOCKED. SIDE RAILS UP X2. WILL ENDORSED TO DRY HEAT CABINET ATTENDANT FOR EFFIE.
--- NOTE | 2019-04-08 19:30 | NUR ---
MANAGER GREEN OPENING NOTES RECEIVED PATIENT FROM MORNING SHIFT, ALERT AND ORIENTED X 3. VERBALLY RESPONSIVE AND ABLE TO FOLLOW DIRECTIONS, BREATHING REGULAR AND UNLABORED ON ROOM AIR. LEFT AC G 20 IV LINE INTACT AND PATENT, INFUSING WELL WITH NO BLEEDING OR S/S OF INFILTRATION NOTED. BODY ASSESSMENT DONE, SEEN WITH MULTIPLE SKIN ISSUES. WILL PROVIDE WOUND TREATMENTS. NO COMPLAINTS OF PAIN/DISCOMFORT REPORTED OF THE REBECA. BED LOW AND LOCKED ON SEMI FOWLERS POSITION. CALL LIGHT IN REACH. WILL CONTINUE TO MONITOR.
[2019-04-08] MEDS: ENOXAPARIN SODIUM 40 MG/0.4 ML DISP.SYRIN SQ SCH (21:57)
[2019-04-09] VITALS: BP 136/92
[2019-04-09 00:12] VITALS: BP 136/92
[2019-04-09 04:00] VITALS: BP 138/102
[2019-04-09] MEDS: VANCOMYCIN 1.5 GM in IV D5W 500ml IV SCH ×2 (05:38→19:00)
--- NOTE | 2019-04-09 06:15 | NUR ---
HEAVY EQUIPMENT RENTAL ASSOCIATE CLOSING NOTES PATIENT IN BED ALERT AND ORIENTED X 3. VERBALLY RESPONSIVE AND ABLE TO FOLLOW DIRECTIONS. BREATHING REGULAR AND UNLABORED ON ROOM AIR. LEFT AC G 20 IV LINE PATENT AND INFUSING WELL. REFUSED WOUND TREATMENTS, RISK AND BENEFITS EXPLAINED. COMPLAINED OF 3/10 BLE PAIN. NON-PHARMACOLOGICAL INTERVENTIONS PROVIDED. MAINTAINED ON CARDIAC MONITORING WITH SINUS TACHYCARDIA AT 105bpm. OUTPUT OF 2100cc CLEAR QUINTEN COLORED URINE. BED LOW AND LOCKED ON SEMI FOWLERS POSITION. CALL LIGHT IN REACH. WILL ENDORSE TO MORNING SHIFT FOR EFFIE.
[2019-04-09 06:16] LABS: APPEARANCE,URINE CLEAR (CLEAR); BILIRUBIN,URINE NEGATIVE (NEGATIVE); BLOOD, URINE NEGATIVE Ery/uL (NEGATIVE); COLOR,URINE YELLOW (YELLOW); KETONES,URINE NEGATIVE (NEGATIVE); LEUKOCYTE ESTERASE ,URINE NEGATIVE (NEGATIVE); NITRITE, URINE NEGATIVE (NEGATIVE); PH,URINE 7.5 (5.0-8.0); PROTEIN,URINE NEGATIVE (NEGATIVE); UGLUCOSE NEGATIVE (NEGATIVE)
[2019-04-09 06:19] LABS: BACTERIA,URINE Few /HPF (None Seen); RBC,URINE 0-2 /HPF (0-2); SQUAMOUS EPITHELIAL CELL,UR Rare /HPF (None Seen); WBC,URINE 0-2 /HPF (0-3)
[2019-04-09 07:30] LABS: BASOPHILS # (AUTO) 0.1 /CMM (0.0-0.2); BASOPHILS % (AUTO) 0.7 % (0.0-2.0); EOSINOPHILS % (AUTO) 0.5 % (0.0-6.0); HEMATOCRIT 35 % (39-51); HEMOGLOBIN 11.2 g/dL (13.5-17.5); LYMPHOCYTES # (AUTO) 1.4 /CMM (0.8-4.8); LYMPHOCYTES % (AUTO) 17.5 % (20.0-44.0); MEAN CORPUSCULAR HGB CONC 32 g/dl (31.0-36.0); MEAN CORPUSCULAR VOLUME 84 fL (80-96); MONOCYTES # (AUTO) 0.7 /CMM (0.1-1.30); NEUTROPHILS # (AUTO) 5.6 /CMM (1.8-8.9); NEUTROPHILS % (AUTO) 72.3 % (43.0-81.0); PLATELET COUNT (AUTO) 379 /CMM (150-450); RED BLOOD CELL COUNT(AUTO) 4.14 MIL/uL (4.5-6.0); WHITE BLOOD COUNT (AUTO) 7.8 K/uL (4.3-11.0)
[2019-04-09 07:48] LABS: CALCIUM, SERUM 8.3 mg/dL (8.5-10.1); CREATININE 1.2 mg/dL (0.6-1.3); POTASSIUM 4.2 mmol/L (3.5-5.1)
[2019-04-09 08:00] VITALS: BP 150/96
--- NOTE | 2019-04-09 08:00 | NUR ---
Tele/RN Note Opening Patient OA x 3, able to responds all stimuli. Skin is warm to touch, kept clean/dry, intact IV site. Respiratory even and unlabored in room air. No s/s of adverse reaction from ATB therapy, Pt does no appears pain or any discomfort, keep lower position of bed with elevated HOB. Call light within reach, will continue to monitor.
[2019-04-09] MEDS: FUROSEMIDE 40 MG/4 ML VIAL IV SCH ×2 (08:38→17:39)
[2019-04-09] MEDS: CEFEPIME 1 GM in IV D5W 50 ML IV SCH ×2 (08:38→20:53)
[2019-04-09] MEDS: NICOTINE PATCH (21MG) 21 MG PATCH.TD24 TD SCH (08:39)
[2019-04-09] MEDS: LISINOPRIL (5MG) 5 MG TABLET PO SCH (08:45)
[2019-04-09] MEDS: CARVEDILOL 6.25 MG TABLET PO SCH ×2 (08:46→21:48)
[2019-04-09 16:00] VITALS: BP 150/101
--- NOTE | 2019-04-09 18:40 | NUR ---
MS/RN Closing Note Patient is in bed comfortably, respiratory even and unlabored with room air, skin warm to touch, clean/dry, intact IV site. No adverse reaction observed from ATB therapy. Keep lower position of bed with elevated HOB. Call light within reach, will endorse night auditor.
[2019-04-09 20:00] VITALS: BP 157/99
--- NOTE | 2019-04-09 20:00 | NUR ---
MS RN NOTES RECEIVED PATIENT AWAKE IN BED WITH NO DISTRESS NOTED. CALL LIGHT WITHIN REACH. BLE DRESSINGS CLEAN DRY AND INTACT. BLE SCD IN PLACE AND FUNCTIONING PROPERLY. NO PAIN OR DISCOMFORT. PERIPHERAL LINE INTACT AND PATENT. BED IN LOW LOCK SETTING. ROOM FREE OF CLUTTER AND BELONGINGS KEPT NEAR BEDSIDE. WILL CONTINUE TO MONITOR
[2019-04-09] MEDS: ENOXAPARIN SODIUM 40 MG/0.4 ML DISP.SYRIN SQ SCH (21:49)
--- NOTE | 2019-04-10 05:50 | NUR ---
BS 341, SPOKE WITH DR. WOLFF WITH ORDER FOR REGULAR INSULIN PER MODERATE SLIDING SCALE ACHS. ORDER READ BACK, NOTED, AND CARRIED OUT. Addendum: 04/10/19 at 0633 by CARISSA HEATON RN ERROR WRONG PATIENT
[2019-04-10] MEDS: VANCOMYCIN 1.5 GM in IV D5W 500ml IV SCH (05:53)
--- NOTE | 2019-04-10 06:32 | NUR ---
MS RN NOTES PATIENT ASLEEP IN BED WITH NO DISTRESS NOTED. CALL LIGHT WITHIN REACH. ALL DUE MEDS GIVEN ORDERED WITH NO ASE NOTED. PERIPHERAL LINE INTACT AND PATENT. ROOM FREE OF CLUTTER AND BELONGINGS KEPT NEAR BEDSIDE. BED IN LOW LOCK SETTING. WILL ENDORSE TO ONCOMING SHIFT.
[2019-04-10 08:00] VITALS: BP 163/107
[2019-04-10 08:02] LABS: BASOPHILS # (AUTO) 0.1 /CMM (0.0-0.2); BASOPHILS % (AUTO) 0.8 % (0.0-2.0); EOSINOPHILS % (AUTO) 1.1 % (0.0-6.0); HEMATOCRIT 35 % (39-51); HEMOGLOBIN 11.3 g/dL (13.5-17.5); LYMPHOCYTES # (AUTO) 1.2 /CMM (0.8-4.8); LYMPHOCYTES % (AUTO) 16.6 % (20.0-44.0); MEAN CORPUSCULAR HGB CONC 32 g/dl (31.0-36.0); MEAN CORPUSCULAR VOLUME 85 fL (80-96); MONOCYTES # (AUTO) 0.9 /CMM (0.1-1.30); NEUTROPHILS # (AUTO) 5.1 /CMM (1.8-8.9); NEUTROPHILS % (AUTO) 69.5 % (43.0-81.0); PLATELET COUNT (AUTO) 372 /CMM (150-450); RED BLOOD CELL COUNT(AUTO) 4.17 MIL/uL (4.5-6.0); WHITE BLOOD COUNT (AUTO) 7.4 K/uL (4.3-11.0)
--- NOTE | 2019-04-10 08:05 | NUR ---
MS RN RECEIVED ON BED, AWAKE,ALERT,ORIENTED X4,NOT IN ANY FORM OF DISTRESS, RESPIRATIONS EVEN AND UNLABORED,NO SOB NOTED, LUNGS ARE CLEAR,ABDOMEN SOFT,POSITIVE BOWEL SOUNDS,DENIES PAIN AT THIS TIME,ALL NEEDS ATTENDED.
--- NOTE | 2019-04-10 09:00 | NUR ---
MS ROMEO BREAKFAST SERVED,DUE MEDS GIVEN,TOLERATED WELL.
[2019-04-10] MEDS: CEFEPIME 1 GM in IV D5W 50 ML IV SCH (09:02)
[2019-04-10] MEDS: FUROSEMIDE 40 MG/4 ML VIAL IV SCH ×2 (09:04→17:00)
[2019-04-10] MEDS: NICOTINE PATCH (21MG) 21 MG PATCH.TD24 TD SCH (09:05)
[2019-04-10] MEDS: LISINOPRIL (5MG) 5 MG TABLET PO SCH (09:09)
[2019-04-10] MEDS: CARVEDILOL 6.25 MG TABLET PO SCH ×2 (09:09→20:12)
[2019-04-10 09:21] LABS: ALBUMIN 1.7 g/dL (3.4-5.0); CALCIUM, SERUM 8.1 mg/dL (8.5-10.1); CREATININE 1.2 mg/dL (0.6-1.3); MAGNESIUM 1.7 mg/dL (1.8-2.4); PHOSPHORUS 4.2 mg/dL (2.5-4.9); POTASSIUM 4.1 mmol/L (3.5-5.1); TOTAL PROTEIN, SERUM 7.1 g/dL (6.4-8.2)
--- NOTE | 2019-04-10 15:00 | NUR ---
ms rn on bed, no distress noted.
[2019-04-10 16:00] VITALS: BP 115/86
[2019-04-10] MEDS: ACETAMINOPHEN 325 MG TABLET PO PRN (17:00)
[2019-04-10] MEDS: VANCOMYCIN 1.25 GM in IV D5W 250 ML IV SCH (17:02)
--- NOTE | 2019-04-10 18:00 | NUR ---
ms rn on bed, no distress noted.
[2019-04-10 20:00] VITALS: BP 117/60
[2019-04-10] MEDS: ENOXAPARIN SODIUM 40 MG/0.4 ML DISP.SYRIN SQ SCH (20:14)
[2019-04-11] MEDS: VANCOMYCIN 1.25 GM in IV D5W 250 ML IV SCH ×2 (06:01→17:57)
--- NOTE | 2019-04-11 06:20 | NUR ---
MS RN NOTES IV LINE REINSERTED ON LEFT FOREARM G22 WITH BLOOD BACKFLOW, INFUSING WELL. WILL CONTINUE TO MONITOR.
--- NOTE | 2019-04-11 06:50 | NUR ---
MS RN CLOSING NOTES PATIENT IN BED ALERT AND ORIENTED X 3. VERBALLY RESPONSIVE AND ABLE TO FOLLOW DIRECTIONS, BREATHING REGULAR AND UNLABORED ON ROOM AIR. LEFT FOREARM G20 IV LINE PATENT AND INFUSING WELL. WOUND TREATMENTS PROVIDED. NO COMPLAINTS OF PAIN/DISCOMFORT REPORTED THE WHOLE SHIFT. WITH CLEAR YELLOW URINE 2100cc OUTPUT. BED LOW AND LOCKED ON SEMI FOWLERS POSITION. CALL LIGHT IN REACH. WILL ENDORSE TO MORNING SHIFT FOR EFFIE.
[2019-04-11 07:45] LABS: BASOPHILS % (AUTO) 0.4 % (0.0-2.0); EOSINOPHILS % (AUTO) 1.1 % (0.0-6.0); HEMATOCRIT 36 % (39-51); HEMOGLOBIN 11.5 g/dL (13.5-17.5); LYMPHOCYTES # (AUTO) 1.1 /CMM (0.8-4.8); LYMPHOCYTES % (AUTO) 16.1 % (20.0-44.0); MEAN CORPUSCULAR HGB CONC 32 g/dl (31.0-36.0); MEAN CORPUSCULAR VOLUME 85 fL (80-96); MONOCYTES # (AUTO) 0.9 /CMM (0.1-1.30); MONOCYTES % (AUTO) 13.5 % (2.0-12.0); NEUTROPHILS # (AUTO) 4.8 /CMM (1.8-8.9); NEUTROPHILS % (AUTO) 68.9 % (43.0-81.0); PLATELET COUNT (AUTO) 379 /CMM (150-450); RED BLOOD CELL COUNT(AUTO) 4.16 MIL/uL (4.5-6.0)
--- NOTE | 2019-04-11 07:46 | NUR ---
MS RN NOTES RECEIVED PATIENT IN BED RESTING COMFORTABLY IN MODERATE HIGH BACK REST. ALERT AND ORIENTED X 3. NO SIGNS OF DISTRESS NOTED AT THIS TIME. IV ACCESS ON LEFT FOREARM #20, PATENT AND INTACT. SAFETY MEASURES IN PLACE, BED LOW AND LOCKED POSITION. SIDE RAILS UP X2. CALL LIGHT IN REACH. WILL CONTINUE TO MONITOR.
[2019-04-11 08:00] VITALS: BP 148/82
[2019-04-11 08:01] LABS: CALCIUM, SERUM 7.9 mg/dL (8.5-10.1); CREATININE 1.1 mg/dL (0.6-1.3); POTASSIUM 4.1 mmol/L (3.5-5.1)
[2019-04-11] MEDS: CARVEDILOL 6.25 MG TABLET PO SCH ×2 (08:39→21:17)
[2019-04-11] MEDS: NICOTINE PATCH (21MG) 21 MG PATCH.TD24 TD SCH (08:39)
[2019-04-11] MEDS: FUROSEMIDE 40 MG/4 ML VIAL IV SCH ×2 (08:39→16:33)
[2019-04-11] MEDS: LISINOPRIL (5MG) 5 MG TABLET PO SCH (08:40)
[2019-04-11] MEDS: Magnesium 1GM/D5W 100ML PREMIX 100 ML IV SCH ×2 (09:28→10:30)
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
[2019-04-11 16:00] VITALS: BP 148/70
--- NOTE | 2019-04-11 18:39 | NUR ---
MS RN NOTES PATIENT IN BED RESTING COMFORTABLY IN MODERATE HIGH BACK REST. ALERT AND ORIENTED X 3. NO SIGNS OF DISTRESS NOTED THROUGHOUT THE SHIFT. IV ACCESS ON LEFT FOREARM #20, PATENT AND INTACT. SAFETY MEASURES IN PLACE, BED LOW AND LOCKED POSITION. SIDE RAILS UP X2. CALL LIGHT IN REACH. WILL ENDORSE TO SOCIAL HUMAN SERVICES ASSISTANTS NURSE FOR EFFIE.
--- NOTE | 2019-04-11 19:40 | NUR ---
MS DELMI INITIAL NOTES RECEIVED REPORT FROM AM NURSE FREDRICK AND SEEN PT IN BED AWAKE ON SITTING POSITION WATCHING TV AT THIS TIME, DENIES ANY PAIN OR ANY DISCOMFORT. NOT IN ANY ACUTE DISTRESS NOTED. HEPLOCK ON HIS LEFT FOREARM GAUGE 22 PATENT AND INTACT. KEPT HIM WARM AND COMFORTABLE AT ALL TIMES. PLACE CALL LIGHT AT REACH.
[2019-04-11 20:00] VITALS: BP 132/70
[2019-04-11] MEDS: ENOXAPARIN SODIUM 40 MG/0.4 ML DISP.SYRIN SQ SCH (21:19)
--- NOTE | 2019-04-11 21:58 | NUR ---
ms ernie notes Routine meds given and snacks also served and patient stated "thank you ". kept him warm and comfortable at all times. place call light at reach. will continue monitoring.
[2019-04-12] MEDS: VANCOMYCIN 1.25 GM in IV D5W 250 ML IV SCH (05:56)
--- NOTE | 2019-04-12 07:06 | NUR ---
ms private pilot closing notes pt resting at this time without any discomfort noted. still refusing to have a bed bath and wound care . all due meds given . Stable max the night and slept well. kept him warm and comfortable at all times. will endorse to am nurse for continuity of care. place call light at reach.
[2019-04-12 07:51] LABS: BASOPHILS # (AUTO) 0.1 /CMM (0.0-0.2); BASOPHILS % (AUTO) 1.1 % (0.0-2.0); EOSINOPHILS % (AUTO) 0.9 % (0.0-6.0); HEMATOCRIT 36 % (39-51); HEMOGLOBIN 11.5 g/dL (13.5-17.5); LYMPHOCYTES # (AUTO) 1.3 /CMM (0.8-4.8); LYMPHOCYTES % (AUTO) 17.3 % (20.0-44.0); MEAN CORPUSCULAR HGB CONC 32 g/dl (31.0-36.0); MEAN CORPUSCULAR VOLUME 85 fL (80-96); MONOCYTES % (AUTO) 13.2 % (2.0-12.0); NEUTROPHILS % (AUTO) 67.5 % (43.0-81.0); PLATELET COUNT (AUTO) 384 /CMM (150-450); RED BLOOD CELL COUNT(AUTO) 4.24 MIL/uL (4.5-6.0); WHITE BLOOD COUNT (AUTO) 7.4 K/uL (4.3-11.0)
[2019-04-12 08:00] VITALS: BP 158/91
[2019-04-12 08:16] LABS: CALCIUM, SERUM 8.2 mg/dL (8.5-10.1); CREATININE 1.1 mg/dL (0.6-1.3); MAGNESIUM 1.9 mg/dL (1.8-2.4); POTASSIUM 4.4 mmol/L (3.5-5.1)
[2019-04-12] MEDS: FUROSEMIDE 80 MG TABLET PO SCH (08:23)
[2019-04-12] MEDS: CARVEDILOL 6.25 MG TABLET PO SCH ×2 (08:23→21:00)
[2019-04-12] MEDS: LISINOPRIL (5MG) 5 MG TABLET PO SCH (08:23)
[2019-04-12] MEDS: NICOTINE PATCH (21MG) 21 MG PATCH.TD24 TD SCH (08:23)
[2019-04-12 16:00] VITALS: BP 148/60
[2019-04-12] MEDS: VANCOMYCIN 1 GM in IV D5W 250 ML IV SCH (17:14)
--- NOTE | 2019-04-12 18:34 | NUR ---
MS RN NOTES PATIENT IN BED RESTING COMFORTABLY IN MODERATE HIGH BACK REST. ALERT AND ORIENTED X 3. NO SIGNS OF DISTRESS NOTED THROUGHOUT THE SHIFT. IV ACCESS ON LEFT FOREARM #20, PATENT AND INTACT. SAFETY MEASURES IN PLACE, BED LOW AND LOCKED POSITION. SIDE RAILS UP X2. CALL LIGHT IN REACH. WILL ENDORSE TO TECHNOLOGY DIRECTOR NURSE FOR EFFIE.
--- NOTE | 2019-04-12 19:25 | NUR ---
RN OPENING NOTES: RECEIVED PATIENT IN BED, AWAKE A/O X4. NO SOB NOTED. BED IN LOWEST AND LOCKED POSITION. CALL LIGHT WITHIN REACH. URINAL AT THE BEDSIDE.
[2019-04-12 20:00] VITALS: BP 128/69
--- NOTE | 2019-04-12 20:00 | NUR ---
V/S TAKEN BY SHEILA MINER AND RECORDED, AFEBRILE.
[2019-04-12] MEDS: ENOXAPARIN SODIUM 40 MG/0.4 ML DISP.SYRIN SQ SCH (20:43)
[2019-04-12 20:44] VITALS: BP 128/69
--- NOTE | 2019-04-12 20:56 | NUR ---
PATIENT'S HR=44 EARLIER, THEN NOW IS 48. PATIENT HAS COREG 6.25MG, VERIFIED WITH PATTERN DUPLICATOR TINO IF IT'S OKAY TO GIVE AT THIS TIME, WAITING FOR THE RESPONSE.
[2019-04-13] MEDS: VANCOMYCIN 1 GM in IV D5W 250 ML IV SCH ×2 (05:29→18:11)
[2019-04-13] MEDS: ACETAMINOPHEN 325 MG TABLET PO PRN ×2 (05:29→19:36)
--- NOTE | 2019-04-13 07:03 | NUR ---
RN CLOSING NOTES: PATIENT IN BED, AWAKE, A/O X4. NO C/O PAIN. NO SOB NOTED. WOUND CARE ON THE LOWER LEGS AND FEET ARE DONE AND DRESSINGS CHANGED THIS MORNING. LEFT FOOT WOUND, WITH ESCHAR, CLEANSED WITH NS, PAT DRIED AND APPLIED BETADINE AND COVERED WITH NS AND WRAPPED WITH KERLIX. ON THE LEFT MILLS WITH SMALL WOUND NO DISCHARGES NOTED, CLEANSED WITH NS, PAT DRIED, APPLIED BETADINE, AND COVERED WITH DRY GAUZE AND KERLIX WRAP. ON THE LEFT CALF, CLEANSED WITH NS, PAT DRIED, XEROFORM DRESSING APPLIED AND COVERED WITH KERLIX WRAP. ON THE RIGHT LEG SCABS, XEROFORM DRESSINGS APPLIED AND COVERED WITH MEPILEX DRESSINGS AND WRAPPED WITH KERLIX. RESTED THROUGHOUT THE NIGHT. CALL LIGHT WITHIN REACH. BED IN LOWEST AND LOCKED POSITION.
[2019-04-13 07:30] VITALS: BP 143/75
--- NOTE | 2019-04-13 07:51 | NUR ---
M/S RN NOTES PATIENT RESTING IN BED, ALERT AND ORIENTED X4, NO RESPIRATORY DISTRESS, NO C/O PAIN AT THIS TIME. PATIENT'S SKIN WARM TO TOUCH, IV VANCO INFUSING ON THE LFA #22G INTACT AND PATENT. PATIENT'S NEEDS ATTENDED, BED ON LOWEST LOCKED POSITION, CALL LIGHT WITHIN REACH. WILL CONTINUE TO MONITOR.
[2019-04-13 07:53] LABS: BASOPHILS % (AUTO) 0.5 % (0.0-2.0); EOSINOPHILS % (AUTO) 1.2 % (0.0-6.0); HEMATOCRIT 37 % (39-51); HEMOGLOBIN 11.9 g/dL (13.5-17.5); LYMPHOCYTES # (AUTO) 1.5 /CMM (0.8-4.8); LYMPHOCYTES % (AUTO) 19.4 % (20.0-44.0); MEAN CORPUSCULAR HGB CONC 32 g/dl (31.0-36.0); MEAN CORPUSCULAR VOLUME 85 fL (80-96); MONOCYTES # (AUTO) 0.9 /CMM (0.1-1.30); MONOCYTES % (AUTO) 12.2 % (2.0-12.0); NEUTROPHILS # (AUTO) 5.1 /CMM (1.8-8.9); NEUTROPHILS % (AUTO) 66.7 % (43.0-81.0); PLATELET COUNT (AUTO) 398 /CMM (150-450); RED BLOOD CELL COUNT(AUTO) 4.38 MIL/uL (4.5-6.0); WHITE BLOOD COUNT (AUTO) 7.6 K/uL (4.3-11.0)
[2019-04-13 08:02] LABS: CALCIUM, SERUM 8.3 mg/dL (8.5-10.1); POTASSIUM 4.7 mmol/L (3.5-5.1)
[2019-04-13] MEDS: FUROSEMIDE 80 MG TABLET PO SCH (09:16)
[2019-04-13] MEDS: CARVEDILOL 6.25 MG TABLET PO SCH ×2 (09:17→22:25)
[2019-04-13] MEDS: LISINOPRIL (5MG) 5 MG TABLET PO SCH (09:17)
[2019-04-13] MEDS: NICOTINE PATCH (21MG) 21 MG PATCH.TD24 TD SCH (09:17)
--- NOTE | 2019-04-13 19:13 | NUR ---
M/S RN NOTES PATIENT AWAKE IN BED, NO RESPIRATORY DISTRESS, NO C/O PAIN AT THIS TIME. SKIN WARM TO TOUCH, IV ACCESS SITE INTACT AND PATENT. PATIENT'S NEEDS ATTENDED, BED ON LOWEST LOCKED POSITION, CALL LIGHT WITHIN REACH. WILL ENDORSE TO ONCOMING NURSE.
[2019-04-13 20:00] VITALS: BP 110/81
[2019-04-13 20:50] VITALS: BP 110/81
--- NOTE | 2019-04-13 20:55 | NUR ---
MS RN OPENING NOTES: RECEIVED PATIENT RESTING IN BED AT 1920,AWAKE, A/O X4. NO SOB NOTED. . BED IN LOWEST AND LOCKED POSITION. V/S TAKEN BY SHEILA MINER,AFEBRILE. V/S STABLE. RECORDED.
[2019-04-13] MEDS: ENOXAPARIN SODIUM 40 MG/0.4 ML DISP.SYRIN SQ SCH (22:26)
--- NOTE | 2019-04-14 03:28 | NUR ---
patient was complaining of IV site pain while the vanco IV was infusing. patient refused IV reinsertion for a new site.
--- NOTE | 2019-04-14 04:41 | NUR ---
BLE WOUND CARE AND DRESSINGS CHANGED DONE.
[2019-04-14] MEDS: VANCOMYCIN 1 GM in IV D5W 250 ML IV SCH ×2 (05:06→19:20)
--- NOTE | 2019-04-14 06:55 | NUR ---
IV PULLED OUT BY THE PATIENT. TIP IS INTACT.
--- NOTE | 2019-04-14 07:30 | NUR ---
M/S RN NOTES PATIENT RESTING IN BED, NO RESPIRATORY DISTRESS, NO C/O PAIN AT THIS TIME. SKIN WARM TO TOUCH, DRESSINGS C/D/I. PATIENT'S NEEDS ATTENDED, BED ON LOWEST LOCKED POSITION, CALL LIGHT WITHIN REACH. WILL CONTINUE TO MONITOR.
[2019-04-14 08:00] VITALS: BP 132/90
[2019-04-14] MEDS: FUROSEMIDE 80 MG TABLET PO SCH (08:44)
[2019-04-14] MEDS: CARVEDILOL 6.25 MG TABLET PO SCH ×2 (08:44→21:37)
[2019-04-14] MEDS: LISINOPRIL (5MG) 5 MG TABLET PO SCH (08:44)
[2019-04-14] MEDS: NICOTINE PATCH (21MG) 21 MG PATCH.TD24 TD SCH (08:44)
[2019-04-14 15:27] LABS: BASOPHILS % (AUTO) 0.7 % (0.0-2.0); EOSINOPHILS % (AUTO) 1.4 % (0.0-6.0); HEMATOCRIT 37 % (39-51); HEMOGLOBIN 11.7 g/dL (13.5-17.5); LYMPHOCYTES # (AUTO) 1.5 /CMM (0.8-4.8); LYMPHOCYTES % (AUTO) 24.4 % (20.0-44.0); MEAN CORPUSCULAR HGB CONC 32 g/dl (31.0-36.0); MEAN CORPUSCULAR VOLUME 86 fL (80-96); MONOCYTES # (AUTO) 0.9 /CMM (0.1-1.30); MONOCYTES % (AUTO) 14.7 % (2.0-12.0); NEUTROPHILS # (AUTO) 3.7 /CMM (1.8-8.9); NEUTROPHILS % (AUTO) 58.8 % (43.0-81.0); PLATELET COUNT (AUTO) 376 /CMM (150-450); WHITE BLOOD COUNT (AUTO) 6.3 K/uL (4.3-11.0)
[2019-04-14 16:00] VITALS: BP 135/75
[2019-04-14 16:16] LABS: CALCIUM, SERUM 8.1 mg/dL (8.5-10.1); CREATININE 1.2 mg/dL (0.6-1.3); POTASSIUM 4.6 mmol/L (3.5-5.1)
--- NOTE | 2019-04-14 19:10 | NUR ---
MS RN NOTES RECEIVED PT IN BED AWAKE AND ABLE TO MAKE NEEDS KNOWN. PT A/O X3. RESPIRATIONS EVEN AND UNLABORED WITH NO S/S OF ACUTE DISTRESS OR SOB NOTED. NO COMPLAINTS OF PAIN AT THIS TIME. PT NOTED WITH CED MIDLINE PATENT AND INTACT. SAFETY MEASURES IN PLACE WITH BED IN LOWEST LOCKED POSITION WITH SIDE RAILS UP X2. CALL LIGHT WITHIN REACH. WILL CONTINUE TO MONITOR.
--- NOTE | 2019-04-14 19:23 | NUR ---
M/S RN NOTES PATIENT AWAKE IN BED, NO RESPIRATORY DISTRESS, NO C/O PAIN AT THIS TIME. MIDLINE INSERTED BY OUSMANE MINER. PATIENT TOLERATED PROCEDURE WELL. SKIN WARM TO TOUCH, DRESSINGS DRY AND INTACT. PATIENT'S NEEDS ATTENDED, BED ON LOWEST LOCKED POSITION, CALL LIGHT WITHIN REACH. WILL ENDORSE TO ONCOMING NURSE.
[2019-04-14 20:49] VITALS: BP 150/60
[2019-04-14] MEDS: ENOXAPARIN SODIUM 40 MG/0.4 ML DISP.SYRIN SQ SCH (21:36)
[2019-04-15] MEDS: VANCOMYCIN 1 GM in IV D5W 250 ML IV SCH ×2 (06:13→18:37)
--- NOTE | 2019-04-15 07:15 | NUR ---
MS RN NOTES PT IN BED AWAKE AND ABLE TO MAKE NEEDS KNOWN. PT A/O X3. RESPIRATIONS EVEN AND UNLABORED WITH NO S/S OF ACUTE DISTRESS OR SOB NOTED THROUGHOUT SHIFT. NO COMPLAINTS OF PAIN AT THIS TIME. PT NOTED WITH CED MIDLINE PATENT AND INTACT. SAFETY MEASURES IN PLACE WITH BED IN LOWEST LOCKED POSITION WITH SIDE RAILS UP X2. CALL LIGHT WITHIN REACH. WILL ENDORSE TO ONCOMING NURSE FOR EFFEI.
[2019-04-15 07:48] LABS: BASOPHILS # (AUTO) 0.1 /CMM (0.0-0.2); BASOPHILS % (AUTO) 0.9 % (0.0-2.0); EOSINOPHILS % (AUTO) 1.2 % (0.0-6.0); HEMATOCRIT 36 % (39-51); HEMOGLOBIN 11.3 g/dL (13.5-17.5); LYMPHOCYTES # (AUTO) 1.7 /CMM (0.8-4.8); LYMPHOCYTES % (AUTO) 28.4 % (20.0-44.0); MEAN CORPUSCULAR HGB CONC 32 g/dl (31.0-36.0); MEAN CORPUSCULAR VOLUME 86 fL (80-96); MONOCYTES # (AUTO) 0.9 /CMM (0.1-1.30); MONOCYTES % (AUTO) 14.7 % (2.0-12.0); NEUTROPHILS # (AUTO) 3.4 /CMM (1.8-8.9); NEUTROPHILS % (AUTO) 54.8 % (43.0-81.0); PLATELET COUNT (AUTO) 350 /CMM (150-450); RED BLOOD CELL COUNT(AUTO) 4.15 MIL/uL (4.5-6.0); WHITE BLOOD COUNT (AUTO) 6.2 K/uL (4.3-11.0)
[2019-04-15 08:00] VITALS: BP 113/74
--- NOTE | 2019-04-15 08:00 | NUR ---
MS RN OPENING NOTES Received Patient asleep and resting in bed. A/O x 3. VS stable with no acute distress. Breathing even and unlabored on room air with no respiratory distress. Denies pain. No signs and symptoms of pain. CED Midline clean, intact, patent and flushing well. Isolation precautions in place. Safety precautions in place. Bed locked and set to lowest position with side rails x 2 up. All needs rendered at this time. Call light within reach. Will continue to monitor.
[2019-04-15 08:09] LABS: CALCIUM, SERUM 8.2 mg/dL (8.5-10.1); CREATININE 1.1 mg/dL (0.6-1.3); POTASSIUM 4.5 mmol/L (3.5-5.1)
[2019-04-15] MEDS: CARVEDILOL 6.25 MG TABLET PO SCH ×2 (10:03→21:27)
[2019-04-15] MEDS: LISINOPRIL (5MG) 5 MG TABLET PO SCH (10:04)
[2019-04-15] MEDS: FUROSEMIDE 80 MG TABLET PO SCH (10:04)
[2019-04-15] MEDS: NICOTINE PATCH (21MG) 21 MG PATCH.TD24 TD SCH (10:05)
[2019-04-15 16:31] VITALS: BP 115/45
--- NOTE | 2019-04-15 19:15 | NUR ---
MS RN NOTES PT IN BED AWAKE AND ABLE TO MAKE NEEDS KNOWN. PT A/O X3. RESPIRATIONS EVEN AND UNLABORED WITH NO S/S OF ACUTE DISTRESS OR SOB NOTED. NO COMPLAINTS OF PAIN AT THIS TIME. PT NOTED WITH CED MIDLINE PATENT AND INTACT. SAFETY MEASURES IN PLACE WITH BED IN LOWEST LOCKED POSITION WITH SIDE RAILS UP X2. CALL LIGHT WITHIN REACH. WILL CONTINUE TO MONITOR.
--- NOTE | 2019-04-15 19:26 | NUR ---
MS RN CLOSING NOTES Patient awake and watching TV in bed. A/O x 3. VS stable with no acute distress. Breathing even and unlabored on room air with no respiratory distress. Denies pain. No signs and symptoms of pain. CED Midline clean, intact, patent and flushing well. Isolation precautions in place. Safety precautions in place. Bed locked and set to lowest position with side rails x 2 up. All needs rendered at this time. Call light within reach. Will endorse plan of care to oncoming shift.
[2019-04-15 20:22] VITALS: BP 116/60
[2019-04-15] MEDS: ENOXAPARIN SODIUM 40 MG/0.4 ML DISP.SYRIN SQ SCH (21:28)
[2019-04-16 06:47] LABS: CALCIUM, SERUM 8.4 mg/dL (8.5-10.1); CREATININE 1.1 mg/dL (0.6-1.3); POTASSIUM 4.5 mmol/L (3.5-5.1)
[2019-04-16] MEDS: VANCOMYCIN 1 GM in IV D5W 250 ML IV SCH (06:58)
[2019-04-16 08:00] VITALS: BP 126/78
--- NOTE | 2019-04-16 08:00 | NUR ---
MS RN NOTES PATIENT IN BED RESTING NO SOB OR ACUTE DISTRESS NOTED. PERIPHERAL IV INTACT PATENT. BED IN LOW POSITION. CALL LIGHT WITHIN REACH. WILL CONTINUE TO MONITOR. WILL CONTINUE TO MONITOR.
[2019-04-16 09:13] VITALS: BP 126/78
[2019-04-16] MEDS: FUROSEMIDE 80 MG TABLET PO SCH (09:13)
[2019-04-16] MEDS: LISINOPRIL (5MG) 5 MG TABLET PO SCH (09:13)
[2019-04-16] MEDS: NICOTINE PATCH (21MG) 21 MG PATCH.TD24 TD SCH (09:13)
[2019-04-16] MEDS: CARVEDILOL 6.25 MG TABLET PO SCH (09:13)
--- NOTE | 2019-04-16 16:00 | NUR ---
MS RN NOTES PATIENT STATING HE DECIDED TO LEAVE AMA STATES HE HAS PROBLEMS HE NEEDS RESOLVING. PATIENT STATES TOMORROW HE WILL GO TO [facility]. DESPITE EXPLANATION OF RISKS PATIENT INSISTS ON LEAVING AMA. PATIENT REQUESTING PANTS. PROVIDED PANTS. PROVIDED CANE. DR. GONZALEZ MADE AWARE. BODY LINE FINISHER SVETLANA SPOKE TO PATIENT RELATED TO OBTAINING LIFE JACKET OVER NIGHT PATIENT REFUSED, INSISTS TO LEAVE AMA. AMA FORM SIGNED. PATIENT REMOVED HIS OWN MIDLINE. GAUZE APPLIED TO SITE. PATIENT LEFT AMA. Addendum: 04/16/19 at 1755 by LAURA SABA RN Patient refused wound pictures states he needs to leave he does not need pictures right now.
[2019-04-16] MEDS ORDERED: ATOR40TA PO (23:34)
[2019-04-16] MEDS ORDERED: CARV12.5 PO (23:34)
[2019-04-16] MEDS ORDERED: LISI10TA5 PO (23:34)
[2019-04-16] MEDS ORDERED: FURO-144 PO (23:34)
== END 2019-04-16 16:30 | disposition left against medical advice (07) | DRG 139 ==
LOC: ER 14:39 → TELE 16:06 → MED 04-09 09:26
PROVIDERS: ADMIT Nurse Practitioner Acute Care; ATTEND Nurse Practitioner Acute Care
PROC: 05H933Z Insertion of Infusion Device into Right Brachial Vein, Percutaneous Approach (ICD-10-PCS; principal; 2019-04-14)
DX: J15.9 Unspecified bacterial pneumonia (principal); N17.0 Acute kidney failure with tubular necrosis; I50.43 Acute on chronic combined systolic (congestive) and diastolic (congestive) heart failure; E44.0 Moderate protein-calorie malnutrition; I42.9 Cardiomyopathy, unspecified; E83.42 Hypomagnesemia; F20.9 Schizophrenia, unspecified; I08.1 Rheumatic disorders of both mitral and tricuspid valves; L03.115 Cellulitis of right lower limb; I11.0 Hypertensive heart disease with heart failure; L03.116 Cellulitis of left lower limb; D63.8 Anemia in other chronic diseases classified elsewhere; F10.10 Alcohol abuse, uncomplicated; I89.0 Lymphedema, not elsewhere classified; F12.90 Cannabis use, unspecified, uncomplicated; F17.210 Nicotine dependence, cigarettes, uncomplicated; F19.10 Other psychoactive substance abuse, uncomplicated; Y90.9 Presence of alcohol in blood, level not specified; Z59.0 Homelessness; Z91.19 Patient's noncompliance with other medical treatment and regimen; Z68.34 Body mass index [BMI] 34.0-34.9, adult; I73.9 Peripheral vascular disease, unspecified
CPT/HCPCS: 36415; 71045-TC; 73630-TC; 80048-TC; 80053-TC; 80076-TC; 80202-TC; 80305; 81000-TC; 83735-TC; 83880; 84100-TC; 84484-TC; 85025-TC; 87070-TC; 87081-TC; 93970-TC; G0378; J0692; J1650; J1940; J2270; J3370; J3475; J7050; J7060

== ENCOUNTER 2019-06-23 17:08 | Inpatient (IN) | payer MEDICAID, OTHER ==
[~2019-06-23] VITALS: Ht 188 cm; Wt 110.0 kg
[~2019-06-23 17:08] MED LIST changes: +ATOR40TA PO; +CARV12.5 PO; +FURO-144 PO; -HYDR-4075 PO; -HYDR12.5 PO; -ISOS40TA12 PO; +LISI10TA5 PO
--- NOTE | 2019-06-23 17:10 | NUR ---
PT BIB SELF C/O COUGH AND CONGESTION FOR 2 WEEKS, CHRONIC KNEE PAIN, PT IS AAOX4, NOT IN RESPIRATORY DISTRESS, HOOKED TO MONITOR, KEPT RESTED AND COMFORTABLE, WILL CONTINUE TO MONITOR.
--- NOTE | 2019-06-23 17:40 | NUR ---
SEEN AND EXAMINED BY .
--- NOTE | 2019-06-23 17:55 | NUR ---
IV LINE ESTABLISHED, BLOOD DRAWN AND SENT TO LAB.
[2019-06-23 18:04] LABS: BASOPHILS % (AUTO) 0.3 % (0.0-2.0); HEMATOCRIT 34 % (39-51); LYMPHOCYTES # (AUTO) 0.4 /CMM (0.8-4.8); LYMPHOCYTES % (AUTO) 3.4 % (20.0-44.0); MEAN CORPUSCULAR HGB CONC 32 g/dl (31.0-36.0); MEAN CORPUSCULAR VOLUME 79 fL (80-96); MONOCYTES # (AUTO) 0.6 /CMM (0.1-1.30); MONOCYTES % (AUTO) 4.8 % (2.0-12.0); NEUTROPHILS # (AUTO) 11.1 /CMM (1.8-8.9); NEUTROPHILS % (AUTO) 91.5 % (43.0-81.0); PLATELET COUNT (AUTO) 293 /CMM (150-450); RED BLOOD CELL COUNT(AUTO) 4.37 MIL/uL (4.5-6.0); WHITE BLOOD COUNT (AUTO) 12.1 K/uL (4.3-11.0)
--- NOTE | 2019-06-23 18:04 | NUR ---
STORAGE BATTERY INSPECTOR AT BEDSIDE FOR XRAY.
[2019-06-23 18:22] LABS: CREATININE 1.4 mg/dL (0.6-1.3); POTASSIUM 3.8 mmol/L (3.5-5.1)
[2019-06-23 18:35] LABS: ALBUMIN 2.2 g/dL (3.4-5.0); BILIRUBIN,DIRECT 0.6 mg/dL (0.0-0.2); BILIRUBIN,TOTAL 1.8 mg/dL (0.2-1.0); TOTAL PROTEIN, SERUM 7.6 g/dL (6.4-8.2)
[2019-06-23] MEDS ORDERED: ACETAMINOPHEN ES 500 MG TABLET ONE (18:42)
[2019-06-23] MEDS ORDERED: ATOR40TA PO (18:47)
[2019-06-23] MEDS ORDERED: FURO-144 PO (18:47)
[2019-06-23] MEDS ORDERED: CARV12.52 PO (18:47)
[2019-06-23] MEDS ORDERED: LISI10TA5 PO (18:47)
[2019-06-23] MEDS ORDERED: ACETAMINOPHEN 325 MG TABLET PO ONE (19:00)
[2019-06-23] MEDS ORDERED: ACETAMINOPHEN ES 500 MG TABLET PO ONE (19:00)
--- NOTE | 2019-06-23 19:09 | NUR ---
COVID SWAB OBTAINED AND SENT TO LAB.
--- NOTE | 2019-06-23 19:12 | NUR ---
REPORT GIVEN TO OUSMANE W[place] FOR EFFIE.
[2019-06-23] MEDS ORDERED: FUROSEMIDE 40 MG/4 ML VIAL IV ONE (19:30)
[2019-06-23] MEDS ORDERED: FUROSEMIDE 40 MG/4 ML VIAL ONE (19:42)
--- NOTE | 2019-06-23 19:49 | NUR ---
PT AAOX4. PLACED ON MONITOR AND PULSE OX. [place] EDEMA NOTED. PT AWARE HE WILL BE STAYING IN THE HOSPITAL.
--- NOTE | 2019-06-23 19:52 | NUR ---
PT STILL UNABLE TO PROVIDE URINE
--- NOTE | 2019-06-23 20:03 | NUR ---
CALLED NURSING SUP FOR BED
--- NOTE | 2019-06-23 20:34 | NUR ---
[employer] SHADOWGRAPH OPERATOR AT BEDSIDE FOR EVALUATION
[2019-06-23] MEDS ORDERED: Thiamine 100 MG in IV D5W 50 ML IV SCH (21:00)
[2019-06-23] MEDS ORDERED: LORAZEPAM INJ 2 MG/ML VIAL IV ONE (21:00)
[2019-06-23] MEDS ORDERED: LORAZEPAM INJ 2 MG/ML VIAL ONE (21:07)
[2019-06-23] MEDS ORDERED: Thiamine 100 MG/ML VIAL ONE (21:07)
[2019-06-23] MEDS ORDERED: ONDANSETRON HCL/PF 4 MG/2 ML VIAL IVP PRN (21:30)
[2019-06-23] MEDS ORDERED: ACETAMINOPHEN 325 MG TABLET PO PRN (21:30)
[2019-06-23] MEDS ORDERED: MAGNESIUM HYDROXIDE 30 ML UDC PO PRN (21:30)
[2019-06-23] MEDS ORDERED: LORAZEPAM INJ 2 MG/ML VIAL IV PRN (21:30)
[2019-06-23] MEDS ORDERED: Z GUARD REMEDY 2 OZ OINT TP PRN (21:30)
[2019-06-23] MEDS ORDERED: VANCOMYCIN 2 GM in IV NS 0.9% 500 ML IV ONE (23:30)
--- NOTE | 2019-06-23 23:31 | NUR ---
Patient is resting comfortably in bed. Easily aroused. VSS.
[2019-06-24] VITALS (7 sets, daily range): BP systolic 117–151; BP diastolic 64–96
[2019-06-24] MEDS ORDERED: PIPERACILLIN /TAZOBACTAM 3.375 G in IV D5W 50 ML IV SCH ×2
[2019-06-24 00:31] LABS: C-REACTIVE PROTEIN 11.4 mg/dL (0.0-0.9)
--- NOTE | 2019-06-24 00:58 | NUR ---
REPORT GIVEN TO OUSMANE LUQUE FOR EFFIE
[2019-06-24] MEDS ORDERED: PIPERACILLIN /TAZOBACTAM 3.375 G VIAL IV ONE (01:27)
[2019-06-24] MEDS ORDERED: VANCOMYCIN 1 GM VIAL ONE (01:27)
--- NOTE | 2019-06-24 01:30 | NUR ---
RN NOTES, VITAL SIGNS UPON ADMISSION 97.0, 98, 18, 89, PLACED PATIENT ON O2 5LPM VIA NC AND 100%, 117/79, NSR IN TELE MONITOR WITH HR HIGH 90S WITH PVCS AND DEPRESSING T WAVES, NOT INVERTED CORRECTION.
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
--- NOTE | 2019-06-24 01:41 | NUR ---
PT TRANSFERED PER ACLS PROTOCOL
--- NOTE | 2019-06-24 03:04 | NUR ---
RN NOTES, INFORMED NIMESH DATA INTEGRATION DEVELOPER THAT PATIENT O2 SAT FLUCTUATING 80S TO HIGH 90S, AND LETHARGIC, INFORMED ALSO THAT HE RECEIVED ATIVAN IN ER, PER NIMESH, STAT ABGS, NOTED AND CARRIED OUT.
--- NOTE | 2019-06-24 03:05 | NUR ---
RN NOTES, INFORMED NIMESH ABGS RESULTS, AND SHE REPLIED WITH NO NEW ORDERS.
[2019-06-24 04:01] LABS: ABG BASE EXCESS -2.9 mmol/L; ABG OXYGEN SATURATION 98.4 % (92.0-98.5); ABG PCO2 28.8 mmHg (35.0-45.0); ABG PH 7.457 (7.350-7.450); ABG PO2 148.4 mmHg (75.0-100.0); AaDO2 103.7 mmHg; COHb 0.6 % (0.5-1.5); MetHb 0.4 % (0.0-1.5); O2Hb 97.4 % (94.0-97.0); SITE, ABG Right Brachial; VENT MODE, BG NC 5LPM
--- NOTE | 2019-06-24 06:35 | NUR ---
NIB FINISHER NOTES, PATIENT IN BED, A/O TO SELF, ON O2 5LPM VIA NC, BREATHING EVEN AND UNLABORED, NO SOB/ NO ACUTE DISTRESS NOTED, WITH O2 SAT LEVEL FLUCTUATING 93-100%, ALL SAFETY PRECAUTIONS IN PLACED ,CALL LIGHT WITHIN REACH, WILL ENDORSE CONTINUITY OF CARE TO ONCOMING NURSE.
[2019-06-24] MEDS ORDERED: FEE PK DOSING 1 MIN EA MC ONE (06:37)
[2019-06-24 06:59] LABS: BASOPHILS % (AUTO) 0.3 % (0.0-2.0); EOSINOPHILS % (AUTO) 0.1 % (0.0-6.0); HEMATOCRIT 38 % (39-51); HEMOGLOBIN 11.7 g/dL (13.5-17.5); LYMPHOCYTES # (AUTO) 0.6 /CMM (0.8-4.8); LYMPHOCYTES % (AUTO) 7.9 % (20.0-44.0); MEAN CORPUSCULAR HGB CONC 31 g/dl (31.0-36.0); MEAN CORPUSCULAR VOLUME 81 fL (80-96); MONOCYTES # (AUTO) 0.4 /CMM (0.1-1.30); MONOCYTES % (AUTO) 4.9 % (2.0-12.0); NEUTROPHILS % (AUTO) 86.8 % (43.0-81.0); PLATELET COUNT (AUTO) 282 /CMM (150-450); RED BLOOD CELL COUNT(AUTO) 4.68 MIL/uL (4.5-6.0); WHITE BLOOD COUNT (AUTO) 8.1 K/uL (4.3-11.0)
[2019-06-24 07:13] LABS: CALCIUM, SERUM 7.7 mg/dL (8.5-10.1); CREATININE 1.4 mg/dL (0.6-1.3); MAGNESIUM 1.7 mg/dL (1.8-2.4); PHOSPHORUS 3.2 mg/dL (2.5-4.9); POTASSIUM 3.5 mmol/L (3.5-5.1)
--- NOTE | 2019-06-24 07:32 | NUR ---
rn opening notes Patient received on 2L nasal cannula, no sob noted, R AC 18 gauge. bed at the lowest setting, call light within reach, side rails up x2.
[2019-06-24] MEDS: FUROSEMIDE 40 MG/4 ML VIAL IV SCH ×2 (08:48→20:12)
[2019-06-24] MEDS: LACTULOSE 10 G/15 ML UDC (PYXIS) PO SCH ×3 (08:49→20:11)
[2019-06-24] MEDS: FOLIC ACID 1 MG TABLET PO SCH (08:49)
[2019-06-24] MEDS: THIAMINE HCL 100 MG TABLET PO SCH (08:49)
[2019-06-24] MEDS: HYDROCODONE/APAP 5/325MG TABLET PO PRN (08:56)
[2019-06-24] MEDS: VANCOMYCIN 1.25 GM in IV D5W 250 ML IV SCH (11:03)
[2019-06-24] MEDS: Magnesium 1GM/D5W 100ML PREMIX 100 ML IV SCH ×2 (11:04→12:07)
[2019-06-24] MEDS: PIPERACILLIN /TAZOBACTAM 3.375 G in IV D5W 50 ML IV SCH ×3 (12:07→23:56)
--- NOTE | 2019-06-24 12:15 | NUR ---
solar project coordination specialist note: Received patient from OUSMANE Aguiar in stable condition. Vital signs within normal limits. Noted with non compliance with continuous oxygen use of 2lpm of oxygen via NC.Saturation without oxygen noted at 95% and patient not in SOB or respiratory distress. Frequent reinforcement to be done and continuous monitoring for compliance initiated. IV sites clean, dry, patent and intact. No pain reported by patient. Will continue to monitor.
--- NOTE | 2019-06-24 15:37 | NUR ---
Social service consult requested by for homelessness. Pt is r/o Covid. ASSISTANT SALES MANAGER attempted several times to contact pt via phone in his room, however pt is not answering. ASSISTANT SALES MANAGER was informed by pt's RN that pt. does have a phone in is room but has been sleeping most of the day. ASSISTANT SALES MANAGER to try again at a later time.
--- NOTE | 2019-06-24 19:15 | NUR ---
Rn closing note: Patient in bed. Awake and responsive. Oriented x2. Isolation in place for Covid-19. Tele monitoring showing Sinus Tachycardia with some Atrial Flutter noted on shift. No pain noted on patient. On cont. 02 via NC @ 3lpm with 98% saturation noted on patient. Sanders catheter draining yellow urine. IV site clean, dry patent and intact. Call light in reach. Bed locked, low and at semi-newberry's position. Side rails up x3. Safety ensured and observed. Endorsed to oncoming shift for EFFIE. Addendum: 06/24/19 at 1932 by HUSSAIN GIRALDO RN wrong charting. charting for 120-2
--- NOTE | 2019-06-24 19:15 | NUR ---
Rn closing note: Patient in bed. Awake and responsive. Oriented x2. Isolation in place for Covid-19. Tele monitoring showing Sinus Tachycardia with some Atrial Flutter noted on shift. No pain noted on patient. On cont. 02 via NC @ 3lpm with 98% saturation noted on patient. Sanders catheter draining yellow urine. IV site clean, dry patent and intact. Call light in reach. Bed locked, low and at semi-newberry's position. Side rails up x3. Safety ensured and observed. Endorsed to oncoming shift for EFFIE. Addendum: 06/24/19 at 1931 by HUSSAIN GIRALDO RN wrong charting for patient. charting for 120-2
--- NOTE | 2019-06-24 19:20 | NUR ---
RN OPENING NOTE RECEIVED PATIENT IS IN BED RESTING, HOB ELEVATED. BREATHING EVEN AND NON LABORED NO SOB NOTED. A&O X 2. ABLE TO MAKE NEEDS KNOWN. ON ISOLATION FOR R/O COVID-19. ON 2 L O2 VIA NC. ON BED REST. NO APPARENT DISTRESS NOTED AT THIS TIME. BED IS LOWERED TO LOW POSITION FOR SAFETY. WILL CONTINUE TO MONITOR.
--- NOTE | 2019-06-24 19:20 | NUR ---
Rn Closing note: Patient in bed and asleep. Behavior of taking out oxygen 2lpm via NC noted with patient with frequent reinforcement of importance of oxygen use and monitoring done. Isolation precautions in place for R/O Covid. Patient refused am care, offers to help with personal hygiene. IV site clean, dry, patent and intact. No pain noted. Call light in reach. Bed locked, low and at semi-newberry's position. Side rails up x3. Safety ensured and observed. Endorsed to oncoming shift for EFFIE.
--- NOTE | 2019-06-24 20:20 | NUR ---
RN NOTE ACCOMPANIED PATIENT TO RADIOLOGY FOR CT SCAN OF LEFT KNEE. PATIENT TOLERATED CT SCAN WELL. PATIENT IS BACK IN ROOM 117-2 IN STABLE CONDITION.
--- NOTE | 2019-06-24 23:30 | NUR ---
BUSINESS EXECUTIVE NOTE PATIENT TRANSFERRED TO MED SURG 2 ROOM 206 IN STABLE CONDITION AROUND THIS TIME. ALL IV MEDICATIONS AND BELONGINGS SENT WITH PATIENT. REPORT GIVEN TO JOSE RAFAEL FOR CONTINUATION OF CARE.
--- NOTE | 2019-06-24 23:40 | NUR ---
RN OPENING NOTES RECEIVED PATIENT FROM TYREL VIA PRECIOUS WITH RN'S AT BEDSIDE. A/OX2-3. NO SIGNS OF DISTRESS OR DISCOMFORT. BREATHING EVEN AND UNLABORED. ON 2LPM O2 VIA NC. IV ACCESS IN LAC, PATENT AND INTACT, NO SIGNS OF REDNESS OR INFILTRATION. ATTACHED ON TELE MONITOR WITH ST 103 NOTED. BED IN LOW LOCKED POSITION WITH SIDE RAILS X2. CALL LIGHT WITHIN REACH. WILL CONTINUE TO MONITOR.
[2019-06-25 00:22] VITALS: BP 123/73
[2019-06-25] MEDS: VANCOMYCIN 1.25 GM in IV D5W 250 ML IV SCH ×2 (00:48→12:26)
[2019-06-25] MEDS: LACTULOSE 10 G/15 ML UDC (PYXIS) PO SCH ×4 (01:10→20:57)
[2019-06-25 04:31] VITALS: BP 129/79
[2019-06-25] MEDS: PIPERACILLIN /TAZOBACTAM 3.375 G in IV D5W 50 ML IV SCH ×4 (05:53→23:56)
--- NOTE | 2019-06-25 07:30 | NUR ---
Tele/RN - Assessment Patient is awake, A/O x 2-3, no complaints overnight, afebrile, uses supplemental oxygen 2lpm via NC, saturating well, no SOB/respiratory distress, denies pain, tele shows SR-ST with PACs. Patient is ambulatory, uses cane. Skin assessment done, noted with multiple wounds on BLE. Wound nurse triggered. Labs reviewed, no critical results seen. Contact and droplet precautions maintained for r/o Covid-19. Will continue with current plan of care.
--- NOTE | 2019-06-25 07:34 | NUR ---
RN CLOSING NOTES PATIENT RESTING IN BED, EASILY AROUSABLE. A/OX2-3. NO SIGNS OF DISTRESS OR DISCOMFORT. BREATHING EVEN AND UNLABORED. ON 2LPM O2 VIA NC. IV ACCESS IN RFA, PATENT AND INTACT, NO SIGNS OF REDNESS OR INFILTRATION. ALL NEEDS MET. NO SIGNIFICANT CHANGES THROUGH THE NIGHT. BED IN LOW LOCKED POSITION WITH SIDE RAILS X2. CALL LIGHT WITHIN REACH. ENDORSED TO AM SHIFT FOR FEFIE.
--- NOTE | 2019-06-25 07:54 | NUR ---
WOUND CARE CONSULT: REVIEWED CHART AND NURSING DOCUMENTATION INCLUDING ADMISSION PHOTOS WHICH SHOW WOUNDS TO LOWER EXTREMITIES. RECOMMEND DPM CONSULT. DR BROWN NOTIFIED OF CONSULT REQUEST. PT IS AMBULATORY AND CONTINENT PER NURSING REPORT. MD IN AGREEMENT WITH PLAN OF CARE.
[2019-06-25 08:03] LABS: CALCIUM, SERUM 7.9 mg/dL (8.5-10.1); CREATININE 1.3 mg/dL (0.6-1.3); MAGNESIUM 1.8 mg/dL (1.8-2.4); PHOSPHORUS 3.6 mg/dL (2.5-4.9); POTASSIUM 4.2 mmol/L (3.5-5.1)
[2019-06-25 08:04] LABS: THYROID STIMULATING HORMONE 2.881 uIU/mL (0.358-3.74); URIC ACID 3.7 mg/dL (2.6-7.2)
[2019-06-25] MEDS: FOLIC ACID 1 MG TABLET PO SCH (08:36)
[2019-06-25] MEDS: THIAMINE HCL 100 MG TABLET PO SCH (08:36)
[2019-06-25] MEDS: FUROSEMIDE 40 MG/4 ML VIAL IV SCH ×2 (08:36→20:57)
[2019-06-25 09:00] VITALS: BP 155/88
[2019-06-25 12:00] VITALS: BP 116/68
[2019-06-25 16:00] VITALS: BP_SYST 110; BP_SYST 133; BP_DIAS 54; BP_DIAS 68
[2019-06-25 16:13] LABS: APPEARANCE,URINE CLEAR (CLEAR); BILIRUBIN,URINE NEGATIVE (NEGATIVE); BLOOD, URINE NEGATIVE Ery/uL (NEGATIVE); COLOR,URINE YELLOW (YELLOW); KETONES,URINE NEGATIVE (NEGATIVE); LEUKOCYTE ESTERASE ,URINE NEGATIVE (NEGATIVE); NITRITE, URINE NEGATIVE (NEGATIVE); PROTEIN,URINE NEGATIVE (NEGATIVE); UGLUCOSE NEGATIVE (NEGATIVE)
[2019-06-25 16:19] LABS: CREATININE, URINE < 13.0 MG/DL (30.0-125.0); URINE SODIUM, RANDOM 95 mmol/l (40-220); URINE TOTAL PROTEIN 6.4 mg/dL (0-11.9)
[2019-06-25 16:42] LABS: RBC,URINE 0-2 /HPF (0-2); WBC,URINE 0-2 /HPF (0-3)
[2019-06-25 16:43] LABS: BACTERIA,URINE None seen /HPF (None Seen); SQUAMOUS EPITHELIAL CELL,UR Rare /HPF (None Seen)
[2019-06-25 17:31] LABS: OSMOLALITY,URINE 237 mOS/kg (340-1090)
--- NOTE | 2019-06-25 19:25 | NUR ---
RN OPENING NOTES PATIENT AWAKE IN BED. A/OX2-3. NO SIGNS OF DISTRESS OR DISCOMFORT. BREATHING EVEN AND UNLABORED. ON 2LPM O2 VIA NC. IV ACCESS IN LAC, PATENT AND INTACT, NO SIGNS OF REDNESS OR INFILTRATION. ON TELE MONITOR WITH SR 89 NOTED. BED IN LOW LOCKED POSITION WITH SIDE RAILS X2. CALL LIGHT WITHIN REACH. WILL CONTINUE TO MONITOR.
--- NOTE | 2019-06-25 19:27 | NUR ---
Tele/RN - End of shift summary No significant change in condition seen. Covid-19 result still pending. Will continue with current plan of care. Endorsed to night RN accordingly.
[2019-06-25 20:00] VITALS: BP 123/61
[2019-06-25] MEDS: MUPIROCIN OINT 2% 22 GM TUBE SCH (20:57)
[2019-06-25] MEDS: DAKINS QUARTER STRENGTH (0.125%) 480 ML BOTTLE TOP SCH (21:03)
[2019-06-25] MEDS: HYDROCODONE/APAP 5/325MG TABLET PO PRN (21:15)
[2019-06-26] VITALS: BP 117/65
[2019-06-26] MEDS: VANCOMYCIN 1.25 GM in IV D5W 250 ML IV SCH ×2 (00:38→12:10)
[2019-06-26] MEDS: LACTULOSE 10 G/15 ML UDC (PYXIS) PO SCH ×4 (02:28→21:34)
[2019-06-26 04:00] VITALS: BP 122/76
[2019-06-26] MEDS: PIPERACILLIN /TAZOBACTAM 3.375 G in IV D5W 50 ML IV SCH ×3 (05:29→17:25)
[2019-06-26 07:05] LABS: CALCIUM, SERUM 7.9 mg/dL (8.5-10.1); CREATININE 1.1 mg/dL (0.6-1.3)
--- NOTE | 2019-06-26 07:12 | NUR ---
RN CLOSING NOTES PATIENT RESTING IN BED, EASILY AROUSABLE. A/OX2-3. NO SIGNS OF DISTRESS OR DISCOMFORT. BREATHING EVEN AND UNLABORED. IV ACCESS IN RFA, PATENT AND INTACT, NO SIGNS OF REDNESS OR INFILTRATION. ALL NEEDS MET. NO SIGNIFICANT CHANGES THROUGH THE NIGHT. DRESSINGS ON BLE C/D/I. BED IN LOW LOCKED POSITION WITH SIDE RAILS X2. CALL LIGHT WITHIN REACH. ENDORSED TO AM SHIFT FOR EFFIE.
--- NOTE | 2019-06-26 07:45 | NUR ---
MS/RN - Assessment Patient is awake, A/O x 2-3, no complaints overnight, afebrile, uses supplemental oxygen 2lpm via NC, saturating well, no SOB/respiratory distress, denies pain. Patient is ambulatory, uses cane. Wound care on BLE done as ordered. Labs reviewed, no critical results seen. Contact precautions maintained for MRSA nares, negative for Covid-19. Will continue with current medical management.
[2019-06-26 08:00] VITALS: BP 113/73
[2019-06-26] MEDS: FUROSEMIDE 40 MG/4 ML VIAL IV SCH (08:30)
[2019-06-26] MEDS: FOLIC ACID 1 MG TABLET PO SCH (08:30)
[2019-06-26] MEDS: THIAMINE HCL 100 MG TABLET PO SCH (08:30)
[2019-06-26] MEDS: DAKINS QUARTER STRENGTH (0.125%) 480 ML BOTTLE TOP SCH (08:35)
[2019-06-26] MEDS: MUPIROCIN OINT 2% 22 GM TUBE SCH ×2 (08:36→21:39)
[2019-06-26] MEDS: FUROSEMIDE 40 MG TABLET PO SCH (09:00)
[2019-06-26] MEDS: CARVEDILOL 3.125 MG TABLET PO SCH ×2 (09:05→21:35)
--- NOTE | 2019-06-26 12:30 | NUR ---
MS/RN - Notes Patient in no acute distress, diuresing well, total urine output at this time was 2850 ml. All needs attended. Will continue to monitor closely.
--- NOTE | 2019-06-26 14:17 | NUR ---
Per chart review, pt is negative for Covid-19. HOBBER met with the pt outside his room due to isolation for MRSA. HOBBER introduced self, and purpose of the visit. HOBBER is familiar with the pt from several previous admissions. Pt is alert and oriented x 4. Pt states he was ambulatory prior to this admission but is not able to walk due to wounds on his legs. Pt states he is homeless and has been homeless for a while. Pt does not receive any financial government benefits and states he has no income. Pt has a history of drug use. Pt denies alcohol, drug, and cigarette use. However, pt's UDS is positive for cannaboids. Pt denies suicidal and homicidal ideation at this time. Pt denies auditory and visual hallucinations at this time. Discharge planning with be discussed with the pt. once pt. is medically cleared. Pt might need a SNF placement as per pt's RN Katlin. Pt declined homeless snf and resources. Pt stated, he will go back to the streets. Homeless Patient waiver form will need to be signed by the pt upon discharge.
[2019-06-26 16:00] VITALS: BP 125/67
--- NOTE | 2019-06-26 18:30 | NUR ---
MS/RN - End of shift summary No significant change in condition seen. Left knee immobilizer ordered. Discharge planning tomorrow per MD. Per CM, pt will f/u at [facility] for wound care. Will continue with current plan of care. Will endorse to night RN accordingly.
--- NOTE | 2019-06-26 19:21 | NUR ---
MS RN: RECEIVED PATIENT Patient in bed, awake, on supplemental Oxygen at 2L NC, tolerating well. BLE with FLACO wrap C/D/I denies pain. Contact precaution maintained.
[2019-06-26 20:47] VITALS: BP 126/69
[2019-06-26] MEDS: HYDROCODONE/APAP 5/325MG TABLET PO PRN (21:59)
[2019-06-27] MEDS: PIPERACILLIN /TAZOBACTAM 3.375 G in IV D5W 50 ML IV SCH ×5 (00:15→23:39)
[2019-06-27] MEDS: VANCOMYCIN 1.25 GM in IV D5W 250 ML IV SCH ×2 (00:53→11:33)
[2019-06-27] MEDS: LACTULOSE 10 G/15 ML UDC (PYXIS) PO SCH ×4 (02:00→20:25)
[2019-06-27] MEDS: HYDROCODONE/APAP 5/325MG TABLET PO PRN ×2 (06:01→20:58)
--- NOTE | 2019-06-27 07:10 | NUR ---
MS RN NOTES RECEIVED PATIENT IN BED ASLEEP. ARUOSABLE TO VERBAL AND TACTILE STIMULI. HOB ELEVATED.NO SOB. ON ROOM AIR WITH SPO2 OF 100%. DENIES ANY C/O PAIN NOR DISCOMFORT AT THIS TIME. ABLE TO MAKE NEEDS KNOWN. BED IN LOWEST POSITION, LOCKED. BED ALARM ON. CALL LIGHT WITHIN REACH.
[2019-06-27 07:12] LABS: CALCIUM, SERUM 8.1 mg/dL (8.5-10.1); CREATININE 1.2 mg/dL (0.6-1.3); POTASSIUM 4.5 mmol/L (3.5-5.1)
--- NOTE | 2019-06-27 07:55 | NUR ---
MS RN: END OF SHIFT REPORT Patient in bed, A/O x 3 cooperative. IV antibiotic as scheduled, afebrile overnight. BLE dressing changed, leg pain managed with PRN [place]. Contact precaution maintained.
[2019-06-27 08:00] VITALS: BP 132/82
[2019-06-27] MEDS: CARVEDILOL 3.125 MG TABLET PO SCH ×2 (08:15→20:53)
[2019-06-27] MEDS: FOLIC ACID 1 MG TABLET PO SCH (08:15)
[2019-06-27] MEDS: THIAMINE HCL 100 MG TABLET PO SCH (08:15)
[2019-06-27] MEDS: MUPIROCIN OINT 2% 22 GM TUBE SCH ×2 (08:15→20:54)
[2019-06-27] MEDS: DAKINS QUARTER STRENGTH (0.125%) 480 ML BOTTLE TOP SCH (08:15)
[2019-06-27] MEDS: FUROSEMIDE 40 MG TABLET PO SCH (08:15)
--- NOTE | 2019-06-27 13:23 | NUR ---
MS RN NOTES TRANSFERRED TO [facility], REPORT GIVEN TO ABELARDO FOR CONTINUATION OF CARE. TRANSFERRED PATIENT VIA BED WITH ALL BELONGINGS ACCOUNTED FOR.
--- NOTE | 2019-06-27 13:45 | NUR ---
ms rn notes Received patient in bed resting alert, oriented x3 no sob or acute distress noted. Bed in low locked position, call light within reach Will continue to monitor.
[2019-06-27 14:00] VITALS: BP 133/79
[2019-06-27] MEDS ORDERED: SULF1TAB48 PO (14:38)
[2019-06-27] MEDS ORDERED: LINE600T13 PO (14:38)
--- NOTE | 2019-06-27 14:40 | NUR ---
INGRID consulted with pillowcase turner, Ami, who stated that she was in the process of sending out SNF referrals to secure the pts placement. SW to follow up.
[2019-06-27 16:00] VITALS: BP 126/72
--- NOTE | 2019-06-27 19:22 | NUR ---
MS RN NOTES PATIENT IN BED RESTING NO SOB OR ACUTE DISTRESS NOTED. ALL DUE MEDIATIONS ADMINISTERED. ALL NEEDS MET. NO ACUTE CHANGED DURING SHIFT. ENDORSED CARE TO PM SHIFT.
--- NOTE | 2019-06-27 19:25 | NUR ---
RN OPENING NOTES Received patient A/O x3, awake on O2 @ 2LPM, saturating well, no SOB/respiratory distress noted at this time. Patient denies any discomfort. On fall and aspiration precautions. Will continue to monitor accordingly.
[2019-06-27 20:00] VITALS: BP_SYST 117; BP_SYST 156; BP_DIAS 71; BP_DIAS 97
[2019-06-27] MEDS: ZOLPIDEM TARTRATE 5 MG TABLET PO PRN (20:58)
[2019-06-28] MEDS: VANCOMYCIN 1 GM in IV D5W 250 ML IV SCH ×2 (01:04→14:32)
[2019-06-28] MEDS: LACTULOSE 10 G/15 ML UDC (PYXIS) PO SCH ×4 (02:07→20:56)
[2019-06-28] MEDS: PIPERACILLIN /TAZOBACTAM 3.375 G in IV D5W 50 ML IV SCH ×4 (05:15→23:23)
--- NOTE | 2019-06-28 06:53 | NUR ---
RN CLOSING NOTES Patient asleep, easily awaken. On O2 PRN. Afebrile the whole shift. Medicated for pain, noted effective. PRN Ambien noted effective. No s/sx of distress noted at this time. All nursing needs attended. Due meds given as ordered.Kept on bed clean dry and comfortable. No new unusalities noted. Endorsed.
[2019-06-28 08:00] VITALS: BP 125/83
--- NOTE | 2019-06-28 08:00 | NUR ---
m/s sql application developer: initial assessment received pt in bed awake, a/ox3. no c/o pain or any discomfort. ble dressing with ricardo wrap in place. encourage to elevate ble. no distress noted. instructed to call for assistance.
[2019-06-28 08:33] LABS: CALCIUM, SERUM 8.3 mg/dL (8.5-10.1); CREATININE 1.1 mg/dL (0.6-1.3); POTASSIUM 4.6 mmol/L (3.5-5.1)
[2019-06-28] MEDS: FOLIC ACID 1 MG TABLET PO SCH (08:39)
[2019-06-28] MEDS: THIAMINE HCL 100 MG TABLET PO SCH (08:39)
[2019-06-28] MEDS: CARVEDILOL 3.125 MG TABLET PO SCH ×2 (08:39→20:58)
[2019-06-28] MEDS: FUROSEMIDE 40 MG TABLET PO SCH (08:39)
[2019-06-28] MEDS: MUPIROCIN OINT 2% 22 GM TUBE SCH ×2 (08:41→21:01)
--- NOTE | 2019-06-28 11:30 | NUR ---
IRVIN contacted [place] [address] call center and spoke with Fiona Tamayo, in regards to referring pt to the "[facility] Tier 1 Isolation program". IRVIN assisted in completing a referral application with Fiona. Per Fiona, pt qualifies for the program. However, currently there are no beds available for today and requested to call back tomorrow at 8AM sharp for a bed. Pt will not have to be re-referred. Pt's Unique ID is [id number]. This number will have to be provided when calling tomorrow for a bed. Pt will require taxi transportation to the facility when approved to be discharged there.
[2019-06-28] MEDS: DAKINS QUARTER STRENGTH (0.125%) 480 ML BOTTLE TOP SCH (13:45)
--- NOTE | 2019-06-28 13:45 | NUR ---
m/s disaster or damage control specialist: notes pt wants to go home with his aunt vs snf. per case management, pt is not qualify for home health. pt made aware. ble wounds done as ordered. pt refused photo on sacral/buttock. pt for d'c home vs snf planning.
--- NOTE | 2019-06-28 14:30 | NUR ---
m/s manager asset management: notes pt dislodged iv to right hand by accident. inserted new line to right hand, gauze#[id number]. will continue to monitor.
--- NOTE | 2019-06-28 15:05 | NUR ---
m/s life skills worker: notes called oziel (erika) and ask for homeless waiver form, stated, "i will talk to pt, i will come up." oziel (erika) at bedside and spoke to pt, informed pt that he is qualified for project x housing, but no bed for today and will have a bed tomorrow. pt change his mind of going home and will try project x tomorrow as stated. dr. liu notified and made aware.
[2019-06-28 16:00] VITALS: BP 128/79
--- NOTE | 2019-06-28 17:00 | NUR ---
m/s outpatient coder: notes dinner served. instructed to call for assistance.
--- NOTE | 2019-06-28 19:05 | NUR ---
m/s seater grinder: notes report given to kiersten (rn) for continuity of care.
--- NOTE | 2019-06-28 19:05 | NUR ---
RN OPENING NOTES Received patient awake on bed, on RA, no SOB/respiratory distress noted. Provided snacks per patient demand. No s/sx of discomfort noted at this time. Kept on bed clean, dry and comfortable. Call light within easy reach. On fall and aspiration precautions. Will continue to monitor accordingly.
[2019-06-28 20:00] VITALS: BP 124/84
[2019-06-28] MEDS: ZOLPIDEM TARTRATE 5 MG TABLET PO PRN (20:56)
[2019-06-28] MEDS: HYDROCODONE/APAP 5/325MG TABLET PO PRN (20:56)
[2019-06-29] MEDS: LACTULOSE 10 G/15 ML UDC (PYXIS) PO SCH ×2 (02:00→09:03)
[2019-06-29] MEDS: VANCOMYCIN 1 GM in IV D5W 250 ML IV SCH (02:16)
[2019-06-29] MEDS: PIPERACILLIN /TAZOBACTAM 3.375 G in IV D5W 50 ML IV SCH ×3 (05:02→12:00)
--- NOTE | 2019-06-29 06:40 | NUR ---
RN CLOSING NOTES Patient asleep, easily awaken. On O2 PRN, no SOB/respiratory distress noted at this time. All nursing needs attended. Due meds given as ordered. Kept on bed clean, dry and comfortable. On fall and aspiration precautions. For discharge, awaiting for placement. Endorsed.
--- NOTE | 2019-06-29 07:32 | NUR ---
RN OPENING NOTES RECEIVED PT AWAKE IN BED AT THIS TIME. A/OX2-3. NO S/S OF ANY ACUTE DISTRESS NOTED. BREATHING EVEN AND UNLABORED. ON O2 3LPM VIA NC. IV ACCESS IN RIGHT HAND G#22 INTACT AND PATENT, NO SIGNS OF REDNESS OR INFILTRATION. PT USES URINAL. BILATERAL LOWER EXTREMITIES WOUND, CLEAN AND DRY. LEFT KNEE IMMOBILIZER. BED IN LOCKED LOWEST POSITION WITH SIDE RAILS X2. CALL LIGHT WITHIN REACH. WILL CONTINUE TO MONITOR.
[2019-06-29 07:38] LABS: CALCIUM, SERUM 8.2 mg/dL (8.5-10.1); CREATININE 1.2 mg/dL (0.6-1.3); POTASSIUM 4.8 mmol/L (3.5-5.1)
[2019-06-29 08:00] VITALS: BP 113/65
[2019-06-29] MEDS: THIAMINE HCL 100 MG TABLET PO SCH (09:02)
[2019-06-29] MEDS: FOLIC ACID 1 MG TABLET PO SCH (09:02)
[2019-06-29] MEDS: FUROSEMIDE 40 MG TABLET PO SCH (09:02)
[2019-06-29 09:03] VITALS: BP 113/65
[2019-06-29] MEDS: CARVEDILOL 3.125 MG TABLET PO SCH (09:03)
[2019-06-29] MEDS: DAKINS QUARTER STRENGTH (0.125%) 480 ML BOTTLE TOP SCH (09:06)
[2019-06-29] MEDS: MUPIROCIN OINT 2% 22 GM TUBE SCH (09:09)
--- NOTE | 2019-06-29 09:19 | NUR ---
INFORMATION SENT:FACESHEET,ADMIT ORDER,ER,H&P,CONSULTATION, PROGRESS NOTES 06/27, 24HRS REPORT,DC PLANNING,UR 06/27. [phone] FA[facility] SENT BY DESTINEY
[2019-06-29] MEDS ORDERED: VANCOMYCIN 0.75 GM in IV D5W 250 ML IV SCH (12:00)
--- NOTE | 2019-06-29 13:00 | NUR ---
PER DR GONZALEZ, PT DISCHARGED TODAY. ORDER IN PLACE
--- NOTE | 2019-06-29 13:15 | NUR ---
MS ALLEY WORKER NOTES PT DISCHARGED TO LONG TERM. STABLE AT THIS TIME. NO SOB, NO S/S OF ANY ACUTE DISTRESS. NO COMPLAINS OF PAIN. IV ACCESS REMOVED, NO BLEEDING NOTED. ALL BELONGINGS ACCOUNTED FOR, SIGNED AND FILED. DISCHARGE TEACHINGS PROVIDED. ALL NEEDS MET ANTICIPATED. LONG TERM RESOURCES PROVIDED AND TAP CARD GIVEN TO PT. PT SIGNED HOMELESS WAIVER. PT LEFT UNNOTICED, WITHOUT SIGNING DISCHARGE FORM. CHARGE NURSE, KELLEE, WAS MADE AWARE. SECURITY WAS CALLED IN TO CHECK ON PT. SECURITY CALLED BACK TO NOTIFY THAT PT LEFT UNNOTICED
[2019-10-26] MEDS ORDERED: CARV12.52 PO (13:38)
[2019-10-26] MEDS ORDERED: KETO15CR2 TP (13:38)
[2019-10-26] MEDS ORDERED: ATOR40TA PO (13:38)
[2019-10-26] MEDS ORDERED: METO2.5T7 PO (13:38)
[2019-10-26] MEDS ORDERED: LISI10TA5 PO (13:38)
== END 2019-06-29 13:15 | disposition home or self-care (01) | DRG 190 ==
LOC: ER 17:33 → TELE1 21:08 → TELE2 06-24 23:26 → MEDSG2 06-26 07:10 → MED 06-27 13:24
PROVIDERS: ADMIT Nurse Practitioner Acute Care; ATTEND Nurse Practitioner Acute Care
DX: I21.4 Non-ST elevation (NSTEMI) myocardial infarction (principal); N17.0 Acute kidney failure with tubular necrosis; E43 Unspecified severe protein-calorie malnutrition; I50.23 Acute on chronic systolic (congestive) heart failure; D68.59 Other primary thrombophilia; E11.22 Type 2 diabetes mellitus with diabetic chronic kidney disease; E11.42 Type 2 diabetes mellitus with diabetic polyneuropathy; I11.0 Hypertensive heart disease with heart failure; E83.42 Hypomagnesemia; I08.1 Rheumatic disorders of both mitral and tricuspid valves; I42.9 Cardiomyopathy, unspecified; E11.51 Type 2 diabetes mellitus with diabetic peripheral angiopathy without gangrene; E87.1 Hypo-osmolality and hyponatremia; Z79.899 Other long term (current) drug therapy; D63.8 Anemia in other chronic diseases classified elsewhere; F10.20 Alcohol dependence, uncomplicated; F17.200 Nicotine dependence, unspecified, uncomplicated; F20.9 Schizophrenia, unspecified; G89.29 Other chronic pain; I87.2 Venous insufficiency (chronic) (peripheral); I89.0 Lymphedema, not elsewhere classified; I87.313 Chronic venous hypertension (idiopathic) with ulcer of bilateral lower extremity; L97.929 Non-pressure chronic ulcer of unspecified part of left lower leg with unspecified severity; L97.919 Non-pressure chronic ulcer of unspecified part of right lower leg with unspecified severity; L03.115 Cellulitis of right lower limb; L03.116 Cellulitis of left lower limb; M17.10 Unilateral primary osteoarthritis, unspecified knee; M65.9 Synovitis and tenosynovitis, unspecified; Z59.0 Homelessness; Z91.14 Patient's other noncompliance with medication regimen; E66.9 Obesity, unspecified; M84.462K Pathological fracture, left tibia, subsequent encounter for fracture with nonunion; D72.829 Elevated white blood cell count, unspecified
CPT/HCPCS: 36415; 36600; 71045-TC; 73564-TC; 73630-TC; 73700-TC; 73721-TC; 80048-TC; 80061-TC; 80076-TC; 80202-TC; 80305; 81000-TC; 82140-TC; 82550-TC; 82570-TC; 83605-TC; 83735-TC; 83880; 83935-TC; 84100-TC; 84155-TC; 84300-TC; 84443-TC; 84484-TC; 84550-TC; 85025-TC; 85378-TC; 86140-TC; 87070-TC; 87081-TC; 87086-TC; 87186-TC; 93307-TC; 93970-TC; 97116-TC; 97530-TC; A6253; A6403; A6407; G0378; J1940; J2060; J2543; J3370; J3411; J3475; J7040; J7050; J7060

== ENCOUNTER 2019-10-21 19:45 | Inpatient (IN) | payer MEDICAID, OTHER ==
[~2019-10-21] VITALS: Ht 185.4 cm; Wt 101.2 kg
[~2019-10-21 19:45] MED LIST changes: -CARV12.5 PO; +CARV12.52 PO; +LINE600T13 PO; +SULF1TAB48 PO
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
--- NOTE | 2019-10-21 20:14 | NUR ---
MACHINE OR MACHINERY MECHANIC AT BEDSIDE FOR LABS.
--- NOTE | 2019-10-21 20:23 | NUR ---
JORGE SWABBED AND SENT TO LAB
[2019-10-21 20:26] LABS: BASOPHILS % (AUTO) 0.7 % (0.0-2.0); EOSINOPHILS % (AUTO) 1.7 % (0.0-6.0); HEMATOCRIT 35 % (39-51); HEMOGLOBIN 11.1 g/dL (13.5-17.5); LYMPHOCYTES % (AUTO) 21.1 % (20.0-44.0); MEAN CORPUSCULAR HGB CONC 31 g/dl (31.0-36.0); MEAN CORPUSCULAR VOLUME 84 fL (80-96); MONOCYTES # (AUTO) 0.4 /CMM (0.1-1.30); MONOCYTES % (AUTO) 8.5 % (2.0-12.0); NEUTROPHILS # (AUTO) 3.2 /CMM (1.8-8.9); PLATELET COUNT (AUTO) 259 /CMM (150-450); RED BLOOD CELL COUNT(AUTO) 4.21 MIL/uL (4.5-6.0); WHITE BLOOD COUNT (AUTO) 4.7 K/uL (4.3-11.0)
[2019-10-21 20:34] LABS: CREATININE 1.1 mg/dL (0.6-1.3); POTASSIUM 3.7 mmol/L (3.5-5.1)
--- NOTE | 2019-10-21 20:34 | NUR ---
AWAITING PT TO PROVIDE URINE SAMPLE
--- NOTE | 2019-10-21 20:38 | NUR ---
DUPLEX VENOUS AT BEDSIDE
--- NOTE | 2019-10-21 20:38 | NUR ---
URINE SENT TO LAB
[2019-10-21 20:43] LABS: APPEARANCE,URINE Clear (CLEAR); BILIRUBIN,URINE MODERATE (NEGATIVE); BLOOD, URINE Trace-lysed Ery/uL (NEGATIVE); KETONES,URINE Negative (NEGATIVE); LEUKOCYTE ESTERASE ,URINE Negative (NEGATIVE); NITRITE, URINE Negative (NEGATIVE); PH,URINE 5.5 (5.0-8.0); PROTEIN,URINE >=300 mg/dl (NEGATIVE); UGLUCOSE Negative (NEGATIVE)
[2019-10-21 20:45] LABS: COLOR,URINE DARK YELLOW (YELLOW)
--- NOTE | 2019-10-21 20:45 | NUR ---
RADIOLOGY AT BEDSIDE FOR XRAY
[2019-10-21 20:48] LABS: BACTERIA,URINE Few /HPF (None Seen); HYALINE CASTS, URINE Few /LPF (None Seen); SQUAMOUS EPITHELIAL CELL,UR Few /HPF (None Seen); WBC,URINE 0-2 /HPF (0-3)
[2019-10-21 20:49] LABS: MUCUS,URINE Many /LPF (None Seen)
[2019-10-21 20:50] LABS: BILIRUBIN,DIRECT 0.5 mg/dL (0.0-0.2); BILIRUBIN,TOTAL 1.9 mg/dL (0.2-1.0); TOTAL PROTEIN, SERUM 8.2 g/dL (6.4-8.2)
[2019-10-21] MEDS ORDERED: NITROGLYCERIN PACKET 1 GM PACKET ONE (21:42)
[2019-10-21] MEDS ORDERED: FUROSEMIDE 40 MG/4 ML VIAL ONE (21:42)
[2019-10-21] MEDS ORDERED: ASPIRIN 325 MG TABLET ONE (21:42)
[2019-10-21] MEDS ORDERED: CEFTRIAXONE 1 G in IV D5W 50 ML IV ONE (22:00)
[2019-10-21] MEDS ORDERED: NITROGLYCERIN 30 GM TUBE TP ONE (22:00)
[2019-10-21] MEDS ORDERED: ASPIRIN 325 MG TABLET PO ONE (22:00)
[2019-10-21] MEDS ORDERED: FUROSEMIDE 40 MG/4 ML VIAL IV ONE (22:00)
[2019-10-21] MEDS ORDERED: AZITHROMYCIN 500 MG in IV D5W 250 ML IV ONE (22:00)
[2019-10-21] MEDS ORDERED: CEFTRIAXONE 1GM BAG (ER ONLY) 50 ML IV ONE (22:07)
--- NOTE | 2019-10-21 22:13 | NUR ---
covid swab sent
[2019-10-21] MEDS ORDERED: AZITHROMYCIN 500 MG VIAL ONE (22:27)
[2019-10-21] MEDS ORDERED: ONDANSETRON HCL/PF 4 MG/2 ML VIAL ONE (23:26)
--- NOTE | 2019-10-21 23:26 | NUR ---
LAB CALLED REGARDING NEGATIVE COVID RESULT.
--- NOTE | 2019-10-21 23:28 | NUR ---
showcase maker tess okay to stay tracking# [id number]
--- NOTE | 2019-10-21 23:30 | NUR ---
DR. ORTIZ PAGED PER ER ORDER.
--- NOTE | 2019-10-21 23:36 | NUR ---
ASHISH DEY TALKING TO DR. ORTIZ REGARDING HOSPITAL ADMISSION.
--- NOTE | 2019-10-21 23:43 | NUR ---
NURSING RECRUITING SPECIALIST CALLED FOR TELE BED.
--- NOTE | 2019-10-21 23:49 | NUR ---
TELE 117-1
[2019-10-22] VITALS (7 sets, daily range): BP systolic 103–158; BP diastolic 46–126
--- NOTE | 2019-10-22 00:11 | NUR ---
Rec'd report from OUSMANE Riggs for EFFIE.
--- NOTE | 2019-10-22 00:12 | NUR ---
REPORT GIVEN TO CHRISTOPH ROMEO FOR EFFIE
[2019-10-22] MEDS ORDERED: ONDANSETRON HCL/PF 4 MG/2 ML VIAL IV PRN (00:30)
[2019-10-22] MEDS ORDERED: MAG HYDROX/AL HYDROX/SIMETH 30 ML UDC PO PRN (01:00)
[2019-10-22] MEDS ORDERED: ONDANSETRON HCL/PF 4 MG/2 ML VIAL IVP PRN (01:00)
[2019-10-22] MEDS ORDERED: ZOLPIDEM TARTRATE 5 MG TABLET PO PRN (01:00)
[2019-10-22] MEDS ORDERED: MAGNESIUM HYDROXIDE 30 ML UDC PO PRN (01:00)
[2019-10-22] MEDS ORDERED: HYDROCODONE/APAP 5/325MG TABLET PO PRN (01:00)
[2019-10-22] MEDS ORDERED: Z GUARD REMEDY 2 OZ OINT TP PRN (01:00)
--- NOTE | 2019-10-22 01:13 | NUR ---
PERINATAL NURSE NOTES: Pt brought to unit via gurney accompanied by RN and EMT. Transferred to bed, skin check done. Pt refused bed bath and to change into hospital gown. Pt refuses to answer almost all of the admission questions. Belongings check done. VS T: 97.4, HR 92, RR 22, O2 100% RA, BP 156/105. Oriented to room, call light within reach. Will continue to monitor.
--- NOTE | 2019-10-22 02:50 | NUR ---
RN NOTE: Pt's BP noted to be 149/113. Rechecked BP x3 and continues to be elevated. Paged Dr. Alves, awaiting call back.
--- NOTE | 2019-10-22 03:21 | NUR ---
Dr. Alves paged back, gave update on pt's BP. NNO at this time. Stated it is due to his CHF exacerbation. Addendum: 10/22/19 at 0501 by HORACIO MORA RN [id number]: Did manual BP on pt x2. BP 160/110 first time and 150/120 second time. CN aware.
--- NOTE | 2019-10-22 05:46 | NUR ---
OUSMANE NOTE: Left VM to Riddhi next of kin to pick up worker pt's belongings. Addendum: 10/22/19 at 0549 by HROACIO MORA RN Riddhi, pt's aunt called back. Stated she will stop by after 1600 when she is off work to pick up worker belongings.
[2019-10-22 06:23] LABS: CALCIUM, SERUM 8.8 mg/dL (8.5-10.1); CREATININE 1.3 mg/dL (0.6-1.3); MAGNESIUM 1.7 mg/dL (1.8-2.4); PHOSPHORUS 3.9 mg/dL (2.5-4.9)
[2019-10-22 06:43] LABS: BASOPHILS # (AUTO) 0.1 /CMM (0.0-0.2); EOSINOPHILS % (AUTO) 0.8 % (0.0-6.0); HEMATOCRIT 38 % (39-51); HEMOGLOBIN 11.8 g/dL (13.5-17.5); LYMPHOCYTES # (AUTO) 1.4 /CMM (0.8-4.8); LYMPHOCYTES % (AUTO) 24.4 % (20.0-44.0); MEAN CORPUSCULAR HGB CONC 31 g/dl (31.0-36.0); MEAN CORPUSCULAR VOLUME 84 fL (80-96); MONOCYTES # (AUTO) 0.5 /CMM (0.1-1.30); MONOCYTES % (AUTO) 8.6 % (2.0-12.0); NEUTROPHILS # (AUTO) 3.6 /CMM (1.8-8.9); NEUTROPHILS % (AUTO) 65.2 % (43.0-81.0); PLATELET COUNT (AUTO) 273 /CMM (150-450); WHITE BLOOD COUNT (AUTO) 5.6 K/uL (4.3-11.0)
--- NOTE | 2019-10-22 06:48 | NUR ---
RN CLOSING NOTES: Pt resting in bed. On 2LPM NC. No acute changes noted throughout shift. No SOB or resp distress noted throughout shift. SR w/ PVCs on tele monitor. RFA #20 patent and flushed. Refused bed bath and to change into hospital gown. Safety measures in place. Will endorse to AM nurse for EFFIE.
--- NOTE | 2019-10-22 07:30 | NUR ---
RETURN CHECKER OPENING NOTES Patient received resting in bed with no acute distress. Alert and oriented x3. On O2 at 2LPM, and O2 saturation of 100%. Noted BLE edema. On tele monitor and noted SR with PVC. IV site on right forearm intact and infusing well. Will keep safe and comfortable. Will continue to monitor.
[2019-10-22] MEDS: Magnesium 1GM/D5W 100ML PREMIX 100 ML IV SCH ×2 (09:29→10:22)
[2019-10-22] MEDS: LISINOPRIL (10MG) 10 MG TABLET PO SCH (09:29)
[2019-10-22] MEDS: FUROSEMIDE 40 MG/4 ML VIAL IV SCH ×2 (09:29→17:44)
[2019-10-22] MEDS: CARVEDILOL 12.5 MG TABLET PO SCH ×2 (09:30→17:44)
--- NOTE | 2019-10-22 10:06 | NUR ---
WOUND CARE CONSULT: REVIEWED CHART, NURSING DOCUMENTATION AND PHOTOS WHICH INDICATE LOWER LEG WOUNDS, PRESENT ON ADMISSION. DR BROWN/VIRAJ NOTIFIED OF DPM CONSULT REQUEST. DISCUSSED SKIN PROTECTION WITH NURSING STAFF. WILL SEE PRN. DEY IN AGREEMENT WITH PLAN FO CARE.
[2019-10-22] MEDS: FUROSEMIDE 100 MG/10 ML VIAL IV SCH ×3 (10:55→18:24)
[2019-10-22] MEDS: ENOXAPARIN SODIUM 40 MG/0.4 ML DISP.SYRIN SQ SCH (10:56)
--- NOTE | 2019-10-22 14:37 | NUR ---
Patient reports homelessness. He is ambulatory and independent with adl's. Will refer to social worker masters for homeless resources and possible long-term on dc. Addendum: 10/22/19 at 1438 by ROWENA SUTTON RN Amended: Links added.
--- NOTE | 2019-10-22 16:20 | NUR ---
This SW spoke with the patient located in [facility]. This SW conducted this assessment via patients phone. Patient is a 44-year-old Male. Patient was alert and oriented x4. Patient reports prior to his admission, he was homeless. Patient was able to confirm demographics on the face sheet including date of and social security number. Patient is receiving SSI and patient did not report approximately how much he receives stating I cant remember. When this SW asked the patient about alcohol use, the patients voice changed. Patients voice became deeper and tight with his response of I never drank alcohol. Patients voice was remained tight when this SW asked about drug use. Patient reported that he smoked weed a lot and patients voice went deep and tight after this SW asked how frequent a lot is, patient stated I already said a lot. Patient denied smoking cigarettes. Patient denied auditory and visual hallucinations. Patient denies suicidal and homicidal ideation. When this SW asked the patient regarding resources including shelters and hygiene patient stated, I know all of these places in the [place]. I do not need your help. Pediatric Acute Care Unit Nurse to remain available for all needs regarding this patient.
[2019-10-22] MEDS: ATORVASTATIN 40 MG TABLET PO SCH (17:45)
--- NOTE | 2019-10-22 17:50 | NUR ---
FOLLOWUP COVID RESULT STILL PENDING.
--- NOTE | 2019-10-22 18:51 | NUR ---
TANK BUILDER SUPERVISOR CLOSING NOTES Patient remains alert and oriented x3. No acute distress noted. Respiration is even and easy with no shortness of breath. All due medications given as ordered. Lasix 80 mg x3 via IV given as ordered, with no adverse reaction noted. No complain of pain or discomfort at this time. IV site on right forearm intact. Pt to resume cardiac diet as tolerated. Call light left within reach at all times.
[2019-10-23] VITALS: BP 144/85
[2019-10-23 04:00] VITALS: BP 132/100
[2019-10-23] MEDS: ACETAMINOPHEN 325 MG TABLET PO PRN ×2 (05:39→21:40)
[2019-10-23 06:39] LABS: BASOPHILS % (AUTO) 0.7 % (0.0-2.0); EOSINOPHILS % (AUTO) 1.5 % (0.0-6.0); HEMATOCRIT 35 % (39-51); HEMOGLOBIN 11.1 g/dL (13.5-17.5); LYMPHOCYTES # (AUTO) 1.3 /CMM (0.8-4.8); LYMPHOCYTES % (AUTO) 26.2 % (20.0-44.0); MEAN CORPUSCULAR HGB CONC 31 g/dl (31.0-36.0); MEAN CORPUSCULAR VOLUME 83 fL (80-96); MONOCYTES # (AUTO) 0.4 /CMM (0.1-1.30); MONOCYTES % (AUTO) 8.5 % (2.0-12.0); NEUTROPHILS # (AUTO) 3.2 /CMM (1.8-8.9); NEUTROPHILS % (AUTO) 63.1 % (43.0-81.0); PLATELET COUNT (AUTO) 258 /CMM (150-450); RED BLOOD CELL COUNT(AUTO) 4.29 MIL/uL (4.5-6.0)
[2019-10-23 06:47] LABS: ALBUMIN 2.4 g/dL (3.4-5.0); BILIRUBIN,TOTAL 1.5 mg/dL (0.2-1.0); CALCIUM, SERUM 8.7 mg/dL (8.5-10.1); CREATININE 1.3 mg/dL (0.6-1.3); MAGNESIUM 1.6 mg/dL (1.8-2.4); PHOSPHORUS 3.9 mg/dL (2.5-4.9); POTASSIUM 3.8 mmol/L (3.5-5.1); TOTAL PROTEIN, SERUM 6.8 g/dL (6.4-8.2)
--- NOTE | 2019-10-23 06:50 | NUR ---
RN CLOSING NOTES PT ON BED SLEEPING EASY TO WAKE UP NO SIGN AND SYMPTOMS OF RESPIRATORY DISTRESS, NO COMPLAINT OF PAIN WILIAM, NO SIGNIFICANT CHANGES ON CONDITION NOTED, TELE MONITOR READS SINUS RHYTHM WITH PVC'S ALL NEEDS ATTENDED DROPLET ISOLATION MAINTAINED FOR R/O COVID SAFETY MEASURE OBSERVED CALL LIGHT WITHIN REACH WILL ENDORSE TO AM SHIFT NURSE
[2019-10-23 08:00] VITALS: BP 142/78
[2019-10-23] MEDS: CARVEDILOL 12.5 MG TABLET PO SCH ×2 (08:52→17:52)
[2019-10-23] MEDS: LISINOPRIL (10MG) 10 MG TABLET PO SCH (08:52)
[2019-10-23] MEDS: HYDROGEL DRESSING 90 GM TUBE TP SCH (08:54)
[2019-10-23] MEDS: KETOCONAZOLE 2% CREAM 15 GM TUBE TP SCH (08:56)
[2019-10-23] MEDS ORDERED: FUROSEMIDE 40 MG/4 ML VIAL IV SCH (09:00)
[2019-10-23] MEDS: Magnesium 1GM/D5W 100ML PREMIX 100 ML IV SCH ×2 (09:52→11:22)
[2019-10-23] MEDS ORDERED: POTASSIUM CHLORIDE 20 MEQ TAB.PRT.SR PO SCH (10:00)
[2019-10-23] MEDS ORDERED: BUMETANIDE INJ 16 MG in IV NS 0.9% 16 ML IV ONE (10:00)
[2019-10-23] MEDS: ENOXAPARIN SODIUM 40 MG/0.4 ML DISP.SYRIN SQ SCH (10:25)
[2019-10-23] MEDS: METOLAZONE 2.5 MG TABLET PO SCH (10:46)
[2019-10-23 12:00] VITALS: BP 113/79
--- NOTE | 2019-10-23 15:10 | NUR ---
RECEIVED REPORT FROM BETSY ROMEO
[2019-10-23 16:00] VITALS: BP 129/94
[2019-10-23] MEDS: ATORVASTATIN 40 MG TABLET PO SCH (17:52)
--- NOTE | 2019-10-23 18:54 | NUR ---
PT IN BED ASLEEP NO SIGNS OF DISTRESS O2 SAT AT 100%. WILL ENDORSE TO HEALTH UNIT COORDINATOR NURSE FOR EFFIE.
--- NOTE | 2019-10-23 19:28 | NUR ---
RN OPENING NOTES RECEIVED PT ON BED AWAKE A/O X4, NO SIGN AND SYMPTOMS OF DISTRESS, ON O2 2L VIA NC SPO2 99% TELE MONITOR READS SINUS RHYTHM 80'S WITH PVC WITH RFA #20 PATENT AND FLUSHED, DROPLET ISOLATION MAINTAINED TO R/O COVID SAFETY MEASURE MAINTAINED CALL LIGHT WITHIN REACH WILL CONT TO MONITOR THE PT
[2019-10-23 20:00] VITALS: BP 107/76
[2019-10-24] VITALS (7 sets, daily range): BP systolic 113–126; BP diastolic 61–90
[2019-10-24 07:08] LABS: BASOPHILS % (AUTO) 0.5 % (0.0-2.0); EOSINOPHILS % (AUTO) 1.6 % (0.0-6.0); HEMATOCRIT 39 % (39-51); HEMOGLOBIN 12.3 g/dL (13.5-17.5); LYMPHOCYTES # (AUTO) 1.4 /CMM (0.8-4.8); LYMPHOCYTES % (AUTO) 22.8 % (20.0-44.0); MEAN CORPUSCULAR HGB CONC 32 g/dl (31.0-36.0); MEAN CORPUSCULAR VOLUME 82 fL (80-96); MONOCYTES # (AUTO) 0.7 /CMM (0.1-1.30); MONOCYTES % (AUTO) 10.8 % (2.0-12.0); NEUTROPHILS # (AUTO) 3.9 /CMM (1.8-8.9); NEUTROPHILS % (AUTO) 64.3 % (43.0-81.0); PLATELET COUNT (AUTO) 287 /CMM (150-450); RED BLOOD CELL COUNT(AUTO) 4.74 MIL/uL (4.5-6.0); WHITE BLOOD COUNT (AUTO) 6.1 K/uL (4.3-11.0)
--- NOTE | 2019-10-24 07:45 | NUR ---
LICENSED CLUB MANAGER/TYREL OPENING NOTE REVIVED PT IN BED AWAKE, ALERT AND ORIENTED X4. PT IS ON OXYGEN 2L SATURATING AT 99% AT THIS TIME. PT IS ON TELE MONITORING WITH SINUS RHYTHM HR 74. PT NOTED WITH A RIGHT FOREARM 20' INTACT, PATENT AND FLUSHING WELL. NO SOB OR ACUTE DISTRESS NOTED. HOB ELEVATED TOLERATED. PT IS FULL CODE. PT NOTED WITH BILATERAL EDEMA ON BOTH CALFS. ALL SAFETY PRECAUTIONS FOLLOWED AND IMPLEMENTED. CALL LIGHT WITHIN REACH AND FUNCTIONING. BED LOCKED AND IN LOWEST POSITION. WILL CONTINUE TO MONITOR AND ASSESS PT.
[2019-10-24 07:50] LABS: ALBUMIN 2.4 g/dL (3.4-5.0); CALCIUM, SERUM 9.3 mg/dL (8.5-10.1); CREATININE 1.4 mg/dL (0.6-1.3); MAGNESIUM 1.6 mg/dL (1.8-2.4); PHOSPHORUS 4.7 mg/dL (2.5-4.9); POTASSIUM 3.5 mmol/L (3.5-5.1); TOTAL PROTEIN, SERUM 7.2 g/dL (6.4-8.2)
[2019-10-24] MEDS ORDERED: POTASSIUM CHLORIDE 20 MEQ TAB.PRT.SR PO ONE (08:30)
[2019-10-24] MEDS ORDERED: Magnesium 1 GM/2 ML VIAL IV ONE (09:00)
[2019-10-24] MEDS: POTASSIUM CHLORIDE 20 MEQ TAB.PRT.SR PO SCH ×3 (09:00→11:20)
[2019-10-24] MEDS ORDERED: BUMETANIDE INJ 16 MG in IV NS 0.9% 16 ML IV ONE (09:00)
--- NOTE | 2019-10-24 09:00 | NUR ---
ANALYSIS MGR NOTE SPOKE WITH DR HENDERSON NOTIFIED THAT EARLIER PATIENT HAS FREQUENT PVC AWARE THAT MAG 1.6 AND K 3.5
[2019-10-24] MEDS: METOLAZONE 2.5 MG TABLET PO SCH (09:02)
[2019-10-24] MEDS: Magnesium 1GM/D5W 100ML PREMIX 100 ML IV SCH ×2 (09:02→10:12)
[2019-10-24] MEDS: MUPIROCIN OINT 2% 22 GM TUBE NS SCH ×2 (09:03→20:08)
[2019-10-24] MEDS: CARVEDILOL 12.5 MG TABLET PO SCH ×2 (09:03→16:37)
[2019-10-24] MEDS: LISINOPRIL (10MG) 10 MG TABLET PO SCH (09:04)
[2019-10-24] MEDS: KETOCONAZOLE 2% CREAM 15 GM TUBE TP SCH (09:22)
[2019-10-24] MEDS: HYDROGEL DRESSING 90 GM TUBE TP SCH (09:22)
--- NOTE | 2019-10-24 09:23 | NUR ---
television mechanic note reported to dr santiago whyte 3.5 ordered kcl 40 one time , order carried our ,given as ordered Addendum: 10/24/19 at 1729 by GUME MCWILLIAMS RN PER DR SANTIAGO INFANTE TO GIVE 2 GM OF MAG ,ORDER CARRIED OUT
[2019-10-24] MEDS: ENOXAPARIN SODIUM 40 MG/0.4 ML DISP.SYRIN SQ SCH (10:14)
--- NOTE | 2019-10-24 11:45 | NUR ---
MINING ENGINEERING TECHNOLOGIST/TYREL NOTE RECEIVED CALL FROM LINEN ROOM CUSTODIAN REGARDING PT'S REQUEST FOR SANDWICH. LINEN ROOM CUSTODIAN SUGGESTED TO HAVE THREE SANDWICHES (BEFORE BREAKFAST, LUNCH AND DINNER) PT PREFERS TURKEY AND PEANUT BUTTER SANDWICHES. LINEN ROOM CUSTODIAN INFORMED OF PT'S SANDWICH PREFERENCE. PT AWARE OF NEW DIET SCHEDULE.
--- NOTE | 2019-10-24 12:00 | NUR ---
PERSONNEL CLERKS SUPERVISOR NOTE HAVING DINNER , ABLE TO EAT SELF , CONT ON BUMEX DRIP ORDERED,WILL F\U
--- NOTE | 2019-10-24 15:14 | NUR ---
DAIRY CHEMIST NOTE SPOKE WITH VICKI NOTIFIED THAT PATIENT IS NEGATIVE FOR COVID ,WILL BE TRANSFER TO TELE UNIT, WILL F\U CHARGE NURSE NOTIFIED
--- NOTE | 2019-10-24 17:15 | NUR ---
DRUG WORKER NOTE TRANSFERRED TO 3 [facility] TELE ROOM 315 WITH STABLE CONDITION , REPORT GIVEN TO JULIO ROMEO
--- NOTE | 2019-10-24 17:20 | NUR ---
LOGISTICS PROJECT MANAGERPRESIDENT COMMERCIAL BANK FROM [employer] NOTES RECEIVED PT TRANSFER FROM [facility] AND RECEIVED REPORT FROM OUSMANE MEYER. PT IS ALERT AND ORIENTED X4.DENIES PAIN OR DISTRESS ON ROOM AIR. PT REFUSED TO HAVE ALL HIS BACKPACK BELONGINGS TO BE CHECKED SAYING ITS OK INSPITE OF EXPLAINING THE IMPORTANCE OF CHECKING HIS BELONGINGS. RESUMED BUMEX IV INFUSION AT 10 ML/HR TO RFA.CALL LIGHT PLACED WITHIN REACH.
[2019-10-24] MEDS: ATORVASTATIN 40 MG TABLET PO SCH (18:00)
--- NOTE | 2019-10-24 19:30 | NUR ---
TELE/RN NOTES RECEIVED PATIENT IN BED RESTING. PATIENT IS ALERT AND ORIENTED X 4. NO SIGNS OF SOB OR RESPIRATORY DISTRESS NOTED. BREATHING IS EVEN AN UNLABORED, PATIENT ON 2L OXYGEN NC, PATIENT REMOVED AT THIS TIME, TOLERATING ROOM AIR WELL. TELE READING SR 69BPM. PATIENT HAS RIGHT FOREARM #20 IV INTACT. STATES NO PAIN AT THIS TIME. SAFETY MEASURES ARE IN PLACE, BED IS LOCKED AND PLACED IN THE LOWEST POSITION, SIDE RAILS UP X2. CALL LIGHT IS WITHIN REACH. WILL CONTINUE TO MONITOR THROUGH OUT SHIFT.
[2019-10-25] VITALS: BP 124/66
[2019-10-25 00:09] VITALS: BP 124/66
[2019-10-25 04:51] VITALS: BP 120/79
--- NOTE | 2019-10-25 06:45 | NUR ---
TELE/RN CLOSING NOTES PATIENT IN BED SLEEPING. PATIENT IS ALERT AND ORIENTED X 4. NO SIGNS OF SOB OR RESPIRATORY DISTRESS NOTED. BREATHING IS EVEN AN UNLABORED, PATIENT ON 2L OXYGEN NC, TOLERATING WELL. TELE READING SR. PATIENT HAS RIGHT FOREARM #20 IV INTACT. PATIENT IS COMFORTABLE AT THIS TIME. NO DISTRESSED NOTED. ALL PATIENT NEEDS HAVE BEEN MET DURING SHIFT. SAFETY MEASURES ARE IN PLACE, BED IS LOCKED AND PLACED IN THE LOWEST POSITION, SIDE RAILS UP X2. CALL LIGHT IS WITHIN REACH. WILL ENDORSE CARE TO DAY SHIFT.
[2019-10-25 07:58] LABS: BASOPHILS # (AUTO) 0.1 /CMM (0.0-0.2); BASOPHILS % (AUTO) 0.9 % (0.0-2.0); EOSINOPHILS % (AUTO) 2.1 % (0.0-6.0); HEMATOCRIT 38 % (39-51); HEMOGLOBIN 12.1 g/dL (13.5-17.5); LYMPHOCYTES # (AUTO) 1.4 /CMM (0.8-4.8); LYMPHOCYTES % (AUTO) 23.1 % (20.0-44.0); MEAN CORPUSCULAR HGB CONC 32 g/dl (31.0-36.0); MEAN CORPUSCULAR VOLUME 83 fL (80-96); MONOCYTES # (AUTO) 0.7 /CMM (0.1-1.30); MONOCYTES % (AUTO) 11.9 % (2.0-12.0); NEUTROPHILS # (AUTO) 3.8 /CMM (1.8-8.9); PLATELET COUNT (AUTO) 289 /CMM (150-450); RED BLOOD CELL COUNT(AUTO) 4.64 MIL/uL (4.5-6.0)
--- NOTE | 2019-10-25 08:00 | NUR ---
tele tip out worker: notes received pt in bed awake, a/ox3. no c/o pain or any discomfort. no c/o sob. instructed to call for assistance. will continue to monitor.
[2019-10-25] MEDS: METOLAZONE 2.5 MG TABLET PO SCH (08:10)
[2019-10-25] MEDS: LISINOPRIL (10MG) 10 MG TABLET PO SCH (08:10)
[2019-10-25] MEDS: CARVEDILOL 12.5 MG TABLET PO SCH ×2 (08:11→17:21)
[2019-10-25 08:26] VITALS: BP 120/80
[2019-10-25 08:32] LABS: ALBUMIN 2.5 g/dL (3.4-5.0); BILIRUBIN,TOTAL 0.8 mg/dL (0.2-1.0); CREATININE 1.3 mg/dL (0.6-1.3); MAGNESIUM 1.7 mg/dL (1.8-2.4); PHOSPHORUS 4.6 mg/dL (2.5-4.9); POTASSIUM 4.2 mmol/L (3.5-5.1); TOTAL PROTEIN, SERUM 7.3 g/dL (6.4-8.2)
--- NOTE | 2019-10-25 09:00 | NUR ---
tele intelligence intern: cardio f/u seen by dr. chambers.
--- NOTE | 2019-10-25 10:30 | NUR ---
tele category development analyst: notes dr. jones at bedside and explained icd procedure, pt verbalized understanding, but pt refuses.
--- NOTE | 2019-10-25 11:00 | NUR ---
tele notary public: nephro consult seen by dr. masterson.
[2019-10-25] MEDS: ENOXAPARIN SODIUM 40 MG/0.4 ML DISP.SYRIN SQ SCH (11:03)
[2019-10-25] MEDS: KETOCONAZOLE 2% CREAM 15 GM TUBE TP SCH (11:04)
[2019-10-25] MEDS: HYDROGEL DRESSING 90 GM TUBE TP SCH (11:04)
[2019-10-25] MEDS: MUPIROCIN OINT 2% 22 GM TUBE NS SCH ×2 (11:04→21:26)
[2019-10-25] MEDS: Magnesium 1GM/D5W 100ML PREMIX 100 ML IV SCH ×2 (11:32→12:50)
--- NOTE | 2019-10-25 13:00 | NUR ---
tele website programmer: notes resting comfortable. no distress noted. instructed to call for assistance. will continue to monitor.
--- NOTE | 2019-10-25 15:00 | NUR ---
tele parks worker: notes resting comfortable. no distress noted. call light within reach. will monitor.
--- NOTE | 2019-10-25 17:00 | NUR ---
tele proof reader: notes in bed awake, dinner served. hob elevated. needs attended. instructed to call for assistance. will monitor.
[2019-10-25] MEDS: ATORVASTATIN 40 MG TABLET PO SCH (17:20)
[2019-10-25 17:37] VITALS: BP 118/79
--- NOTE | 2019-10-25 19:15 | NUR ---
tele enamel shader: notes report given to jumana hyman) for continuity of care.
[2019-10-25 20:00] VITALS: BP 106/58
--- NOTE | 2019-10-25 20:20 | NUR ---
RN OPENING NOTES RECEIVED PT SITTING UPRIGHT IN BED WITH NO S/S OF DISTRESS. HE IS A/O X4, DISTRESS, TELE MONITOR READS SINUS RHYTHM 72. HE HAS A 20G IV RFA THAT IS PATIENT AND FLUSHED WITH NO SWELLING OR SIGNS OF INFECTION. PT HAS ALL NEEDS MET, BED IS IN LOWEST AND LOCKED POSITION WITH CALL MURILLO WITHIN REACH. WILL CONTINUE TO MONITOR.
[2019-10-25] MEDS: ACETAMINOPHEN 325 MG TABLET PO PRN (21:36)
--- NOTE | 2019-10-25 21:39 | NUR ---
RONNI ROMEO NOTES PT COMPLAINING OF 3/10 PAIN IN RIGHT KNEE. ADMINISTERED PRN ACETAMINOPHEN. WILL CONTINUE TO MONITOR. Addendum: 10/26/19 at 0404 by AASHISH GAN RN LEFT KNEE NOT RIGHT.
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
[2019-10-26] VITALS: BP 131/63
[2019-10-26 04:00] VITALS: BP 124/60
[2019-10-26 06:54] LABS: CALCIUM, SERUM 8.9 mg/dL (8.5-10.1); CREATININE 1.2 mg/dL (0.6-1.3); POTASSIUM 4.6 mmol/L (3.5-5.1)
--- NOTE | 2019-10-26 07:26 | NUR ---
RN CLOSING NOTES NOTES PT IS ALERT AND AWAKE RESTING IN BED WITH NO S/S OF DISTRESS. HE IS A/O X4, DISTRESS, TELE MONITOR READS SINUS RHYTHM 75. HE HAS A 20G IV RFA THAT IS PATIENT AND FLUSHED WITH NO SWELLING OR SIGNS OF INFECTION. PT RESTED WELL AFTER LAST ADMINISTRATION OF NORCO AND DID NOT COMPLAIN OF ANY PAIN. HAS ALL NEEDS MET, BED IS IN LOWEST AND LOCKED POSITION WITH CALL MURILLO WITHIN REACH. WILL CONTINUE TO MONITOR. WILL ENDORSE NEW ONSET KNEE PAIN TO ON COMING NURSE.
--- NOTE | 2019-10-26 07:54 | NUR ---
RN OPENING NOTE Patient is resting in bed, A/O x4, showing no signs of acute distress or SOB, breathing is even and unlabored, stable on RA. Patient has no complaints of pain at this time. Tele monitor SR with occasional PVCs. IV line in the FRA #20g s/l is clean and intact flushing well. Bed is in lowest position, side rails x3 in upright position, call light is within reach, fall safety and aspiration precautions enforced. Will continue with plan of care.
[2019-10-26 08:00] VITALS: BP 137/91
[2019-10-26] MEDS: CARVEDILOL 12.5 MG TABLET PO SCH (08:15)
[2019-10-26] MEDS: LISINOPRIL (10MG) 10 MG TABLET PO SCH (08:15)
[2019-10-26] MEDS: METOLAZONE 2.5 MG TABLET PO SCH (08:15)
[2019-10-26] MEDS: MUPIROCIN OINT 2% 22 GM TUBE NS SCH (08:17)
[2019-10-26] MEDS: KETOCONAZOLE 2% CREAM 15 GM TUBE TP SCH (08:17)
[2019-10-26] MEDS: HYDROGEL DRESSING 90 GM TUBE TP SCH (08:17)
[2019-10-26] MEDS: ENOXAPARIN SODIUM 40 MG/0.4 ML DISP.SYRIN SQ SCH (10:23)
[2019-10-26 12:00] VITALS: BP 110/60
[2019-10-26] MEDS ORDERED: KETO15CR2 TP (13:38)
[2019-10-26] MEDS ORDERED: ATOR40TA PO (13:38)
[2019-10-26] MEDS ORDERED: METO2.5T7 PO (13:38)
[2019-10-26] MEDS ORDERED: LISI10TA5 PO (13:38)
[2019-10-26] MEDS ORDERED: CARV12.52 PO (13:38)
--- NOTE | 2019-10-26 13:53 | NUR ---
WARM IN WORKER NOTE Patient is medically cleared for discharge. Patient continues to refuse ICD placement after MD discussing the risks and benefits. Per case management, patient also refuses usp placement. Several options for clinics, urgent care/medical centers provided to the patient. PT eval complete and patient is to be DC'd with walker. Patient refuses skin assessment. IV removed, ID band removed. DC instructions provided and patient verbalized understanding. All belongings are with the patient. All patient needs and concerns met, all due medications given. Patient is independent with self care. Patient escorted downstairs with STAGE SETTING PAINTER APPRENTICE.
== END 2019-10-26 14:03 | disposition home or self-care (01) | DRG 194 ==
LOC: ER 19:45 → TELE1 23:52 → TELE 10-24 16:29 → TELE1 10-24 16:34 → TELE 10-24 17:14
PROVIDERS: ADMIT Nurse Practitioner Acute Care; ATTEND Nurse Practitioner Acute Care
DX: I13.0 Hypertensive heart and chronic kidney disease with heart failure and stage 1 through stage 4 chronic kidney disease, or unspecified chronic kidney disease (principal); E44.0 Moderate protein-calorie malnutrition; I50.23 Acute on chronic systolic (congestive) heart failure; I42.9 Cardiomyopathy, unspecified; L97.529 Non-pressure chronic ulcer of other part of left foot with unspecified severity; F20.9 Schizophrenia, unspecified; B35.1 Tinea unguium; D63.8 Anemia in other chronic diseases classified elsewhere; Z59.0 Homelessness; F17.210 Nicotine dependence, cigarettes, uncomplicated; I89.0 Lymphedema, not elsewhere classified; Z91.19 Patient's noncompliance with other medical treatment and regimen; E88.09 Other disorders of plasma-protein metabolism, not elsewhere classified; F10.20 Alcohol dependence, uncomplicated; I87.2 Venous insufficiency (chronic) (peripheral); Z71.6 Tobacco abuse counseling; Z68.29 Body mass index [BMI] 29.0-29.9, adult; N18.9 Chronic kidney disease, unspecified; E11.9 Type 2 diabetes mellitus without complications; N17.0 Acute kidney failure with tubular necrosis
CPT/HCPCS: 36415; 71045-TC; 76700-TC; 80048-TC; 80053-TC; 80061-TC; 80076-TC; 80305; 81000-TC; 82977-TC; 83010; 83615-TC; 83735-TC; 83880; 84100-TC; 84484-TC; 85025-TC; 85045-TC; 85730-TC; 87081-TC; 93970-TC; 94799-TC; 97116-TC; 97530-TC; A6248; C9803-CS; G0378; G0480; J0456; J0696; J1650; J1940; J2405; J3475; J3490; J7040; J7050; J7060; U0003-CS

== ENCOUNTER 2019-12-03 00:12 | Inpatient (IN) | payer OTHER ==
[~2019-12-03] VITALS: Ht 185.4 cm; Wt 98.4 kg
[~2019-12-03 00:12] MED LIST changes: +KETO15CR2 TP; +METO2.5T7 PO
--- NOTE | 2019-12-03 00:23 | NUR ---
PT AAOX4. BIBRA [address] FOR C/O SOB X 2 DAYS. PT PLACED IN BED 11 ON MONITOR AND PULSE OX. NOTED BILATERAL EDEMA. NO ACUTE DISTRESS NOTED. AT BEDSIDE FOR VICENTE. NYASIA ZHENG.
[2019-12-03] MEDS ORDERED: VANCOMYCIN 1 GM in IV D5W 250 ML IV ONE (00:30)
[2019-12-03] MEDS ORDERED: PIPERACILLIN /TAZOBACTAM 3.375 G in IV D5W 50 ML IV ONE ×2 (00:30→03:30)
[2019-12-03 00:59] LABS: BASOPHILS # (AUTO) 0.2 /CMM (0.0-0.2); BASOPHILS % (AUTO) 3.2 % (0.0-2.0); EOSINOPHILS % (AUTO) 2.6 % (0.0-6.0); HEMATOCRIT 39 % (39-51); HEMOGLOBIN 12.4 g/dL (13.5-17.5); LYMPHOCYTES # (AUTO) 1.1 /CMM (0.8-4.8); MEAN CORPUSCULAR HGB CONC 32 g/dl (31.0-36.0); MEAN CORPUSCULAR VOLUME 84 fL (80-96); MONOCYTES # (AUTO) 0.5 /CMM (0.1-1.30); MONOCYTES % (AUTO) 9.1 % (2.0-12.0); NEUTROPHILS # (AUTO) 3.9 /CMM (1.8-8.9); NEUTROPHILS % (AUTO) 67.1 % (43.0-81.0); PLATELET COUNT (AUTO) 265 /CMM (150-450); RED BLOOD CELL COUNT(AUTO) 4.65 MIL/uL (4.5-6.0); WHITE BLOOD COUNT (AUTO) 5.9 K/uL (4.3-11.0)
[2019-12-03 01:25] LABS: CALCIUM, SERUM 8.7 mg/dL (8.5-10.1); CREATININE 1.2 mg/dL (0.6-1.3); POTASSIUM 3.9 mmol/L (3.5-5.1)
[2019-12-03] MEDS ORDERED: ONDANSETRON HCL/PF 4 MG/2 ML VIAL IVP PRN (01:30)
[2019-12-03] MEDS ORDERED: MAGNESIUM HYDROXIDE 30 ML UDC PO PRN (01:30)
[2019-12-03] MEDS ORDERED: ACETAMINOPHEN 325 MG TABLET PO PRN (01:30)
[2019-12-03] MEDS ORDERED: HYDROCODONE/APAP 5/325MG TABLET PO PRN (01:30)
[2019-12-03] MEDS ORDERED: MAG HYDROX/AL HYDROX/SIMETH 30 ML UDC PO PRN (01:30)
[2019-12-03] MEDS ORDERED: Z GUARD REMEDY 2 OZ OINT TP PRN (01:30)
[2019-12-03] MEDS ORDERED: ZOLPIDEM TARTRATE 5 MG TABLET PO PRN (01:30)
--- NOTE | 2019-12-03 01:58 | NUR ---
COVID RESULT: NEGATIVE, CALLED HOUSE SUP FOR TELE BED
--- NOTE | 2019-12-03 01:59 | NUR ---
TELE BED 315-2
[2019-12-03 02:10] LABS: BILIRUBIN,DIRECT 0.6 mg/dL (0.0-0.2); TOTAL PROTEIN, SERUM 7.9 g/dL (6.4-8.2)
[2019-12-03] MEDS ORDERED: FUROSEMIDE 40 MG/4 ML VIAL ONE (02:28)
[2019-12-03] MEDS ORDERED: ENALAPRILAT INJ (1.25 MG/ML) 1.25 MG/ML VIAL IV PRN (02:30)
[2019-12-03] MEDS ORDERED: FUROSEMIDE 40 MG/4 ML VIAL IV ONE (02:30)
[2019-12-03] MEDS ORDERED: ENALAPRILAT INJ (1.25 MG/ML) 1.25 MG/ML VIAL IV ONE (02:53)
--- NOTE | 2019-12-03 03:04 | NUR ---
SPOKE TO PT REGARDING HOME MEDS, STATED HE DOES NOT TAKE ANY MEDS.
[2019-12-03 03:30] VITALS: BP 131/87
--- NOTE | 2019-12-03 03:30 | NUR ---
XENA RECEIVED FROM ER A 44 Y/O MALE , HOMELESS, WITH CC OF SOB FOR 2 DAYS. AUDIBLE WHEEZING AND CRACKLES, OCC PRO COUGH NOTED. RESTLESS REFUSED TO HAVE OXYGEN 100% ON RA ,NONCOMPLIANT, UNCOOPERATIVE. UNABLE TO DO TOTAL BODY ASSESSMENT, REFUSED TO REMOVE HIS SWEAT PANTS. NO INFORMATION FROM PATIENT, VERBAL RESPONSE VERY LIMITED, ALTERED, WANTED TO DRINK . KEPT NPO FOR NOW TILL SEEN BY MOVING CONSULTANT. DUE MEDS STARTED. BED ALARM ON, SAFETY PRECAUTIONS EMPHASIZED, NEEDS FURTHER INSTRUCTION. CLOSELY WATCHED. SR ON THE MONITOR
[2019-12-03] MEDS ORDERED: PIPERACILLIN /TAZOBACTAM 3.375 G VIAL IV ONE (03:39)
--- NOTE | 2019-12-03 03:43 | NUR ---
REPORT GIVEN TO PEE ROMEO FOR EFFIE
--- NOTE | 2019-12-03 03:44 | NUR ---
PT TRANSFERED PER ACLS PROTOCOL
[2019-12-03 04:00] VITALS: BP 131/87
[2019-12-03] MEDS ORDERED: VANCOMYCIN 2 GM in IV D5W 500 ML IV ONE (04:00)
[2019-12-03] MEDS ORDERED: VANCOMYCIN 1 GM VIAL ONE ×2 (04:16→04:33)
[2019-12-03] MEDS ORDERED: PIPERACILLIN /TAZOBACTAM 3.375 G in IV D5W 50 ML IV SCH (06:00)
--- NOTE | 2019-12-03 06:30 | NUR ---
MSRN TOTAL OF 1800 URINE OUTPUT FROM URINAL.
[2019-12-03] MEDS ORDERED: BUMETANIDE INJ 0.25 MG/ML VIAL IV ONE (07:30)
--- NOTE | 2019-12-03 07:30 | NUR ---
LOAN ASSISTANT NOTES PT IN BED, ASLEEP, EASY TO AROUSE, VERBALLY RESPONSIVE, WITH POOR CONCENTRATION, DENIES PAIN, NOT IN DISTRESS, REFUSES TO REMOVE HIS PANTS FOR SKIN ASSESSMENT, IV SITE TO LEFT A/C INTACT AND PATENT, CALL LIGHT WITHIN REACH, NEEDS ATTENDED.
[2019-12-03 08:00] VITALS: BP 144/114
--- NOTE | 2019-12-03 08:31 | NUR ---
MED RECON. PATIENT REPORTED NOT TAKING ANY MEDICATION. "I WAS PRESCRIBED, BUT I STOP TAKING THEM". PRIMARY RN AWARE.
[2019-12-03] MEDS: FUROSEMIDE 40 MG/4 ML VIAL IV SCH ×3 (11:23→17:16)
[2019-12-03] MEDS: POTASSIUM CHLORIDE 20 MEQ TAB.PRT.SR PO SCH ×3 (11:23→13:03)
[2019-12-03] MEDS: CARVEDILOL 6.25 MG TABLET PO SCH ×2 (11:24→21:44)
[2019-12-03 11:32] VITALS: BP 167/115
--- NOTE | 2019-12-03 11:57 | NUR ---
Furnace Setter Consult: SS consult requested by Brianna Frederick INDUSTRIAL ECONOMICS TEACHER for Homelessness. The patient is a 44-year old [place] Male on Med Surge experiencing homelessness and stated he came to seek medical attention for SOB. The pt. appears disheveled with visible edema in the lower extremities and is alert and oriented x 4. The pt. is drowsy and makes intermittent eye contact. The pt. has latency in his response. The pt. denies HI/SI. The pt. has fair insight and fair judgment. The pt. denies ETOH/Drug use. The pt. expressed that he was diagnosed with Schizophrenia at the age of 20 and denies current symptoms, denies hallucinations. The pt. stated he does not currently take medication for Schizophrenia, however, he was agreeable to outpatient psychiatry and treatment. INGRID provided pt. with outpatient mental health clinics including: [facility] [[address] [place] [address]]; [facility] [ [facility] [address]; [phone]]. SW informed him he may need to set up apt. Patient stated he understood and can follow up. The pt. stated that he has been experiencing homelessness for about 8 years and stated his plan is to return to the streets. Pt. stated that he "hustles to obtain food and long-term. INGRID provided pt. with homeless resources including: Year-round shelters : [facility] [place] [address] [place], [place] [id number] ; [facility] [address] [place] [address]; [facility] [place] [address] [facility]. [facility] [address] . Hygiene: [facility]: [address] [place] ; [facility] [address] [facility] ; [facility] [address] . Food Resources: [facility] at [facility]- [address] [place]; [facility] ([facility]) [address] [facility]; [facility] [address] [facility]; [facility] [address] [facility]. The pt. stated he ambulates with a cane. SW informed charge nurse to provide pt. with a cane, and have pt. sign homeless waiver when ready for D/C.
[2019-12-03] MEDS: PIPERACILLIN /TAZOBACTAM 4.5 G in IV D5W 50 ML IV SCH ×2 (13:02→17:00)
[2019-12-03 16:00] VITALS: BP 157/104
[2019-12-03] MEDS: VANCOMYCIN 1.5 GM in IV D5W 500 ML IV SCH (18:36)
--- NOTE | 2019-12-03 19:02 | NUR ---
RESTAURANT FRONT MANAGER CLOSING NOTES PT RESTING COMFORTABLY IN BED THROUGH OUT SHIFT, A/O X 4, VERBALLY RESPONSIVE, ON RA, REFUSED TO HAVE NC IN PLACE, NO SOB NOTED, NO ACUTE RESPIRATORY DISTRESS NOTED, WITH NO COMPLAINT OF PAIN THIS SHIFT, IN NO DISTRESS, IV SITE TO LEFT A/C INTACT AND PATENT, BED AT LOWEST POSITION AND LOCKED, WITH CALL LIGHT WITH IN REACH, ALL SAFETY PRECAUTIONS IN PLACE. CALL LIGHT WITHIN REACH, NEEDS ATTENDED.
--- NOTE | 2019-12-03 19:15 | NUR ---
MSRN ASLEEP, APPEARS COMFORTABLE. ANTIBIOTICS INFUSING. RESPIRATION EVEN, SATURATING 99% ON RA. CONTINUED.
[2019-12-03 20:00] VITALS: BP 153/92
--- NOTE | 2019-12-03 22:20 | NUR ---
MSRN DUE MEDS ADMINISTERED. SNACKS PROVIDED. MORE CONVERSANT AND MORE ALERT THIS TIME. STRICT I/O. VOIDING WELL USING URINAL.
[2019-12-04] MEDS: PIPERACILLIN /TAZOBACTAM 4.5 G in IV D5W 50 ML IV SCH ×4 (00:38→18:22)
--- NOTE | 2019-12-04 05:09 | NUR ---
MSRN IV LEAKING, RESTARTED 20 GAUGE BY RN LEFT FA WITH GOOD BLOOD RETURN. NO CHANGE PATIENT CONDITION.
[2019-12-04] MEDS: VANCOMYCIN 1.5 GM in IV D5W 500 ML IV SCH ×2 (06:42→18:00)
--- NOTE | 2019-12-04 07:24 | NUR ---
MSRN REMAINS UNCHANGE, VANCO IV INFUSING WELL.
[2019-12-04 08:00] VITALS: BP 137/81
--- NOTE | 2019-12-04 09:00 | NUR ---
germán liu supervisor intermediates made aware of potassium level of 3.4.no new orders.
[2019-12-04 09:08] LABS: BASOPHILS # (AUTO) 0.1 /CMM (0.0-0.2); BASOPHILS % (AUTO) 0.8 % (0.0-2.0); EOSINOPHILS % (AUTO) 1.3 % (0.0-6.0); HEMATOCRIT 36 % (39-51); HEMOGLOBIN 11.4 g/dL (13.5-17.5); LYMPHOCYTES # (AUTO) 0.8 /CMM (0.8-4.8); LYMPHOCYTES % (AUTO) 12.6 % (20.0-44.0); MEAN CORPUSCULAR HGB CONC 32 g/dl (31.0-36.0); MEAN CORPUSCULAR VOLUME 83 fL (80-96); MONOCYTES # (AUTO) 0.7 /CMM (0.1-1.30); NEUTROPHILS # (AUTO) 4.8 /CMM (1.8-8.9); NEUTROPHILS % (AUTO) 74.3 % (43.0-81.0); PLATELET COUNT (AUTO) 241 /CMM (150-450); RED BLOOD CELL COUNT(AUTO) 4.35 MIL/uL (4.5-6.0); WHITE BLOOD COUNT (AUTO) 6.4 K/uL (4.3-11.0)
[2019-12-04 09:29] LABS: ALBUMIN 2.4 g/dL (3.4-5.0); CALCIUM, SERUM 8.3 mg/dL (8.5-10.1); CREATININE 1.3 mg/dL (0.6-1.3); MAGNESIUM 1.4 mg/dL (1.8-2.4); PHOSPHORUS 3.8 mg/dL (2.5-4.9); POTASSIUM 3.4 mmol/L (3.5-5.1); TOTAL PROTEIN, SERUM 6.8 g/dL (6.4-8.2)
[2019-12-04] MEDS: CARVEDILOL 6.25 MG TABLET PO SCH ×2 (09:54→21:18)
--- NOTE | 2019-12-04 09:54 | NUR ---
Plan: Patient is refusing all care home referrals so will be discharged to the streets since this is his choice.
[2019-12-04] MEDS: FUROSEMIDE 40 MG/4 ML VIAL IV SCH ×3 (09:55→18:12)
--- NOTE | 2019-12-04 15:30 | NUR ---
felice [facility] called received orders for mg oxide,lipitor,lovenox and flu vaccine.
[2019-12-04 16:00] VITALS: BP 131/79
[2019-12-04] MEDS ORDERED: ENOXAPARIN SODIUM 40 MG/0.4 ML DISP.SYRIN SQ SCH (16:00)
[2019-12-04] MEDS ORDERED: INFLUENZA VACCINE 2020-21 0.5 ML DISP.SYRIN IM ONE (16:00)
[2019-12-04] MEDS ORDERED: MAGNESIUM OXIDE 400 MG TABLET PO ONE (16:00)
--- NOTE | 2019-12-04 18:03 | NUR ---
eve. flores held due to vanco trough level 21.0.pharmacy aware.
--- NOTE | 2019-12-04 18:30 | NUR ---
lasix x 3 .pt. tolerated well.
--- NOTE | 2019-12-04 19:30 | NUR ---
juli quiroz to report to epic multiple doses of lasix with no potassium ordered.
--- NOTE | 2019-12-04 19:45 | NUR ---
MS RN NOTES PATIENT IN BED, ASLEEP, EASILY AROUSED. ALERT AND ORIENTED X 3. BREATHING EVEN AND UNLABORED ON ROOM AIR. SHOWS NO SIGNS OF ACUTE RESPIRATORY DISTRESS. NO ACUTE PAIN. IV ON L FA 20G ITS CLEAN DRY AND INTACT. SHOWS NO SIGNS OF INFILTRATION, NO REDNESS. SAFETY PRECAUTIONS IN PLACE. BED IN LOWEST POSITION, LOCKED, AND CALL LIGHT KEPT WITHIN REACH. WILL CONTINUE TO MONITOR.
[2019-12-04 20:00] VITALS: BP 133/83
[2019-12-04] MEDS ORDERED: ATORVASTATIN 40 MG TABLET PO SCH (22:00)
[2019-12-05] MEDS ORDERED: VANCOMYCIN 1.25 GM in IV D5W 250 ML IV SCH ×2
[2019-12-05] MEDS: PIPERACILLIN /TAZOBACTAM 4.5 G in IV D5W 50 ML IV SCH ×3 (00:39→11:36)
--- NOTE | 2019-12-05 07:12 | NUR ---
MS RN NOTES PATIENT IN BED, ASLEEP, EASILY AROUSED. ALERT AND ORIENTED X 3. BREATHING EVEN AND UNLABORED ON ROOM AIR. SHOWS NO SIGNS OF ACUTE RESPIRATORY DISTRESS. NO ACUTE PAIN. IV ON L FA 20G ITS CLEAN DRY AND INTACT. SHOWS NO SIGNS OF INFILTRATION, NO REDNESS. SAFETY PRECAUTIONS IN PLACE. ALL DUE MEDICATIONS GIVEN. ALL NEEDS ATTENDED TO. PT REFUSED BED CHANGE. SAFETY PRECAUTIONS IN PLACE. BED IN LOWEST POSITION, LOCKED, AND CALL LIGHT KEPT WITHIN REACH. WILL ENDORSE TO ONCOMING NURSE
--- NOTE | 2019-12-05 07:30 | NUR ---
MS RN NOTES PATIENT IN BED, RESTING AND EASILY AWAKEN BY NAME. ALERT AND ORIENTED X 3. ON ROOM AIR WITH NO SIGNS OF ACUTE RESPIRATORY DISTRESS, NO SIGNS OF SOB AND WITH EVEN NON-LABORED BREATHING. NO ACUTE PAIN PRESENT AT THIS TIME. IV ACCESS ON L FA 20G, CLEAN, DRY, INTACT AND PATENT. SAFETY PRECAUTIONS IN PLACE WITH THE BED IN LOWEST POSITION, BED LOCKED, BILATERAL SIDE RAILS UP AND CALL LIGHT KEPT WITHIN REACH OF THE PATIENT. WILL CONTINUE TO MONITOR PATIENT.
[2019-12-05 08:00] VITALS: BP 133/84
[2019-12-05 08:04] LABS: CALCIUM, SERUM 8.4 mg/dL (8.5-10.1); CREATININE 1.3 mg/dL (0.6-1.3); POTASSIUM 3.6 mmol/L (3.5-5.1)
[2019-12-05 08:27] VITALS: BP 133/84
[2019-12-05] MEDS: CARVEDILOL 6.25 MG TABLET PO SCH (08:27)
[2019-12-05] MEDS ORDERED: BUME1TAB9 PO (09:41)
[2019-12-05] MEDS ORDERED: ATOR40TA PO (09:41)
[2019-12-05] MEDS ORDERED: POTA-88 PO (09:41)
[2019-12-05] MEDS ORDERED: CARV6.252 PO (09:41)
--- NOTE | 2019-12-05 15:23 | NUR ---
SPECIAL EVENTS PLANNER NOTES PATIENT MEDICALLY CLEARED FOR DISCHARGE BY MD. ALERT AND ORIENTED X 3, ON ROOM AIR WITH NO SIGNS OF RESPIRATORY DISTRESS AT THIS TIME WITH EVEN NON-LABORED BREATHING AN NO SOB NOTED. VITAL SIGNS STABLE. PATIENT IV ACCESS REMOVED CATHETER TIP INTACT AND APPLIED PRESSURE TO SITE. ID BAND REMOVED. PATIENT ACCOUNTED FOR ALL BELONGINGS. EXIT CARE DONE AND PROVIDED TO PATIENT. PATIENT PROVIDED TAP CARD. 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 PATIENT LEFT UNIT VIA WHEELCHAIR AND LEFT [facility]. Addendum: 12/05/19 at 1527 by LUANNE JEAN-BAPTISTE RN SPECIAL EVENTS PLANNER NOTES PATIENT MEDICALLY CLEARED FOR DISCHARGE BY MD. ALERT AND ORIENTED X 3, ON ROOM AIR WITH NO SIGNS OF RESPIRATORY DISTRESS AT THIS TIME WITH EVEN NON-LABORED BREATHING AN NO SOB NOTED. VITAL SIGNS STABLE. PATIENT IV ACCESS REMOVED CATHETER TIP INTACT AND APPLIED PRESSURE TO SITE. ID BAND REMOVED. PATIENT REFUSED SKIN ASSESSMENT, NO PICTURES WERE TAKEN. PATIENT ACCOUNTED FOR ALL BELONGINGS. EXIT CARE DONE AND PROVIDED TO PATIENT. PATIENT PROVIDED TAP CARD. 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 PATIENT LEFT UNIT VIA WHEELCHAIR AND [facility].
== END 2019-12-05 15:30 | disposition home or self-care (01) | DRG 194 ==
LOC: ER 00:13 → TELE 02:49 → MED 11:47
PROVIDERS: ADMIT Nurse Practitioner Acute Care; ATTEND Nurse Practitioner Acute Care
DX: I11.0 Hypertensive heart disease with heart failure (principal); I42.9 Cardiomyopathy, unspecified; I50.23 Acute on chronic systolic (congestive) heart failure; E87.1 Hypo-osmolality and hyponatremia; F20.9 Schizophrenia, unspecified; Y90.9 Presence of alcohol in blood, level not specified; F10.20 Alcohol dependence, uncomplicated; Z59.0 Homelessness; I89.0 Lymphedema, not elsewhere classified; D36.7 Benign neoplasm of other specified sites; I87.8 Other specified disorders of veins; D63.8 Anemia in other chronic diseases classified elsewhere; E78.5 Hyperlipidemia, unspecified; I10 Essential (primary) hypertension; E11.9 Type 2 diabetes mellitus without complications; M19.90 Unspecified osteoarthritis, unspecified site; E80.6 Other disorders of bilirubin metabolism; I87.312 Chronic venous hypertension (idiopathic) with ulcer of left lower extremity; L97.829 Non-pressure chronic ulcer of other part of left lower leg with unspecified severity
CPT/HCPCS: 36415; 71045-TC; 80048-TC; 80053-TC; 80061-TC; 80076-TC; 80202-TC; 83605-TC; 83735-TC; 83880; 84100-TC; 84484-TC; 85025-TC; 87040-TC; 87081-TC; 93307-TC; C9803-CS; G0378; J1650; J1940; J2543; J3370; J3490; J7050; J7060; Q2036